=== PATIENT | male | born 1990 | race Two or more races ===

== ENCOUNTER 2016-12-08 13:39 | Inpatient (IN) | payer MEDICARE, BC, MEDICAID ==
[~2016-12-08] VITALS: Ht 193 cm; Wt 65.8 kg
[~2016-12-08 13:39] MED LIST: AMBIEN5 MG ORAL; CEPHALEXIN500 MG ORAL; COLACE100 MG ORAL; DAILY VITAMIN1 EACH PO; DILAUDID2 MG IVP; HEPARIN SO5000 UNIT2 SUBQ; HYDROCODON-ACE1 EAC7 PO; MEGESTROL ACETA20 MG PO; NEURONTIN300 MG PO; NORCO 5-325 TA1 EACH ORAL; RANITIDINE HCL150 MG ORAL; TYLENOL650 MG/20. ORAL; VANCOMYCIN1 GM IV; VESICARE10 MG PO; VITAMIN C500 M1 PO; VITAMIN E100 UNIT ORAL; ZINC50 M1 ORAL; ZINC50 M1 PO; ZOFRAN 4 MG4 MG/2 ML IV; ZOSYN3.375 GM IV; [UNRECOGNIZED DRUG - OTHER] *
[2016-12-08 14:34] LABS: APPEARANCE,URINE SLIGHTLY CLOUDY; KETONES,URINE NEGATIVE (NEGATIVE); LEUKOCYTE ESTERASE ,URINE 3+ (NEGATIVE); NITRITE,URINE NEGATIVE (NEGATIVE); PH,URINE 8 (4.5-8.0); PROTEIN,URINE 2+ (NEGATIVE); UROBILINOGEN,URINE NORMAL MG/DL (0.0-1.0)
[2016-12-08 14:46] LABS: WBC,URINE 60-80 /HPF (0 - 0)
[2016-12-08 14:47] LABS: BACTERIA,URINE FEW /HPF; SQUAMOUS EPITHELIAL CELL,UR OCCASIONAL /LPF (NONE/OCC)
[2016-12-08 14:50] LABS: BASOPHILS % (AUTO) 1.2 % (0.0-2.0); LYMPHOCYTES % (AUTO) 13.3 % (20.0-45.0); MEAN CORPUSCULAR HEMOGLOBIN 29.7 PG (27.0-31.0); MEAN CORPUSCULAR HGB CONC 33.2 G/DL (32.0-36.0); MEAN CORPUSCULAR VOLUME 89 FL (80-99); MEAN PLATELET VOLUME 8.8 FL (6.5-10.1); MONOCYTES % (AUTO) 9.1 % (1.0-10.0); NEUTROPHILS % (AUTO) 75.5 % (45.0-75.0); PLATELET COUNT 270 K/UL (150-450); RED BLOOD COUNT 5.48 M/UL (4.70-6.10); RED CELL DISTRIBUTION WIDTH 12.2 % (11.6-14.8); WHITE BLOOD COUNT 15.6 K/UL (4.8-10.8)
[2016-12-08] MEDS ORDERED: Morphine Sulfate 2mg/ml Inj IVP ONE ×2 (15:00)
[2016-12-08 15:11] VITALS: BP 131/79
[2016-12-08] MEDS ORDERED: EC-NAPROSYN375 MG PO (15:13)
[2016-12-08] MEDS ORDERED: OXYBUTYNIN CHLOR5 M2 PO (15:13)
[2016-12-08 15:14] LABS: ANION GAP 17 (5-15); CALCIUM 10.2 mg/dL (8.6-10.2); CARBON DIOXIDE 24 mEQ/L (20-30); CHLORIDE 94 mEQ/L (98-107); CREATININE 0.7 mg/dL (0.7-1.2); GLOMERULAR FILTRATION RATE > 60 mL/min (>60); HEMOLYSIS 6; POTASSIUM 3.9 mEQ/L (3.4-4.9); SODIUM 135 mEQ/L (135-145)
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
[2016-12-08] MEDS ORDERED: Vancomycin 1 GM in NS 275 ML IVPB ONE (17:30)
[2016-12-08] MEDS ORDERED: Vancomycin 1gm inj IVPB ONE (17:45)
[2016-12-08] MEDS ORDERED: Cyclobenzaprine 10mg Tab ORAL ONE (19:00)
[2016-12-08 23:03] VITALS: BP 134/82
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
[2016-12-09] MEDS ORDERED: LORazepam 1mg tab ORAL PRN (01:00)
[2016-12-09] MEDS ORDERED: Miralax 17gm pkt ORAL PRN (01:00)
[2016-12-09] MEDS ORDERED: Zolpidem 5mg tab ORAL PRN (01:00)
[2016-12-09] MEDS ORDERED: Milk of Magnesia 30ml Ud ORAL PRN (01:00)
[2016-12-09] MEDS ORDERED: Mylanta II UD 30ml ORAL PRN (01:00)
[2016-12-09] MEDS ORDERED: Cyclobenzaprine 10mg Tab ORAL PRN (01:15)
[2016-12-09] MEDS ORDERED: Morphine Sulfate 4mg/ml Inj IVP ONE (01:15)
[2016-12-09] MEDS ORDERED: Cefepime 2gm ONE ×3 (02:00→22:50)
[2016-12-09] MEDS ORDERED: D5W 55 ML IV ONE (02:00)
[2016-12-09] MEDS ORDERED: Tubing IV Cassette IV ONE (02:00)
[2016-12-09] MEDS: Cefepime HCl 2 GM in D5W 110 ML IVPB SCH ×3 (02:03→22:59)
[2016-12-09 02:11] VITALS: BP 123/74
[2016-12-09 06:09] VITALS: BP 119/80
[2016-12-09 08:28] VITALS: BP 137/75
[2016-12-09] MEDS: Morphine Sulfate 2mg/ml Inj IVP PRN ×2 (08:53→17:31)
[2016-12-09] MEDS: Docusate 100mg tablet ORAL SCH ×2 (08:54→21:14)
[2016-12-09] MEDS: Heparin 5000 units/ml inj SUBQ SCH ×2 (08:54→21:19)
--- NOTE | 2016-12-09 13:25 | Diagnostic Imaging Report ---
Indication: PAIN, status post fall Technique: No IV contrast, per trauma protocol. Spiral acquisitions obtained through the right hip. Multiplanar reconstructions were generated. Total dose length product 320 mGycm. CTDIvol(s) 11 mGy. Radiation dose was minimized using automated exposure control Comparison: Pelvic MRI 06/24/2014 , CT abdomen pelvis 05/24/2014 Findings: No acute fractures are demonstrated. No dislocations. Foci of heterotopic ossification are seen adjacent to the proximal femoral shaft, and in the soft tissues of the groin. There is thickened soft tissues surrounding both hip joints, which could indicate joint effusion versus chronic synovial thickening. A single small air bubble is seen probably within the joint. There is some increased attenuation of the subcutaneous fat posteriorly to the greater trochanter. There is some chronic deformity of the subcutaneous soft tissue of the inferomedial buttock region. However, the large abscess and acute decubitus changes described on prior CT and MRI are no longer evident. There is thinning of the bone of the posterior ischium, but this area appears corticated and not eroded, so there are no findings to suggest acute osteomyelitis in this area. Thickening of the soft tissues anterior to the hip joints is similar to that seen on the prior CT scan. There is narrowing of the joint spaces of both hips. The included pelvic viscera are unremarkable. Impression: No acute bony trauma. Single small gas bubble presumably within the left hip joint space. Significance uncertain, but septic arthritis from a gas-forming organism cannot be ruled out Chronic abnormality of the right ischium, with bone loss that is probably related 2 osteomyelitis changes reported in 2014 Chronic soft tissue abnormalities, presumably related to prior decubitus changes Findings discussed by phone with Ni in the emergency room at the time of interpretation The CT scanner at [facility] is accredited by the [employer] and the scans are performed using protocols designed to limit radiation exposure to as low as reasonably achievable to attain images of sufficient resolution adequate for diagnostic evaluation.
[2016-12-09] MEDS: Morphine Sulfate 4mg/ml Inj IVP PRN ×2 (13:31→21:14)
--- NOTE | 2016-12-09 14:13 | Diagnostic Imaging Report ---
Indication: Hematuria, flank pain Technique: Grayscale and duplex images of the kidneys, retroperitoneum, and bladder were obtained. Comparison:Is made to CT scan dated 12/08/2016 Findings: Right kidney measures 1.4 cm in length. Left kidney measures 13.5 cm in length. Both kidneys demonstrate normal echogenicity. No hydronephrosis. Right kidney demonstrates a few hyperechoic foci in the renal sinus suggestive of stones, at these are not evident on recent CT. Some linear parenchymal calcifications seen in the interpolar region on CT might account for this. No focal abnormality on the left.. Normal inferior vena cava. Bladder is normal. Impression: No hydronephrosis. No definite findings to explain stated clinical history of hematuria Right renal hyperechoic foci, could be artifactual as no calculi are seen on recent CT scan. However, a few interpolar region parenchymal calcifications seen on CT could account for this finding..
[2016-12-09 14:17] LABS: BASOPHILS % (AUTO) 0.8 % (0.0-2.0); EOSINOPHILS % (AUTO) 0.4 % (0.0-3.0); LYMPHOCYTES % (AUTO) 12.4 % (20.0-45.0); MEAN CORPUSCULAR HEMOGLOBIN 30.8 PG (27.0-31.0); MEAN CORPUSCULAR HGB CONC 34.2 G/DL (32.0-36.0); MEAN CORPUSCULAR VOLUME 90 FL (80-99); MEAN PLATELET VOLUME 8.5 FL (6.5-10.1); MONOCYTES % (AUTO) 10.3 % (1.0-10.0); NEUTROPHILS % (AUTO) 76.2 % (45.0-75.0); PLATELET COUNT 237 K/UL (150-450); RED CELL DISTRIBUTION WIDTH 12.2 % (11.6-14.8); WHITE BLOOD COUNT 13.9 K/UL (4.8-10.8)
[2016-12-09 14:29] LABS: ANION GAP 17 (5-15); CALCIUM 9.7 mg/dL (8.6-10.2); CARBON DIOXIDE 23 mEQ/L (20-30); CHLORIDE 95 mEQ/L (98-107); CREATININE 0.7 mg/dL (0.7-1.2); GLOMERULAR FILTRATION RATE > 60 mL/min (>60); HEMOLYSIS 5; POTASSIUM 4.2 mEQ/L (3.4-4.9); SODIUM 135 mEQ/L (135-145)
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
[2016-12-09 16:14] VITALS: BP 117/66
[2016-12-09 20:00] VITALS: BP 120/69
--- NOTE | 2016-12-09 22:28 | General Progress Note ---
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 - Paraplegia following spinal cord injury SNOMED: 33895937 (3) Nephrolithiasis ICD Codes: N20.0 - Calculus of kidney SNOMED: 93425504 Status: stable Assessment/Plan Cont cefepime (12/09-) for likely pyelonephritis ID consulted, appreciate rec's F/u STD labs F/u renal U/S Pain control, bowel regimen, supportive care Cont intermittent self cath PRN Monitor CBC and BMP DVT Prophylaxis: SCD, HSQ Code Status: Full Hospital Classification Declaration: Based on this initial evaluation, and depending on the patient's clinical course, I anticipate that this patient will require hospitalization for 1-2 days for pyelonephritis, IV abx per ID and close respiratory/hemodynamic monitoring. Disposition: Once the patient is stable to leave the hospital, I anticipate the patient will likely be discharged to the following environment: home vs home w/ hh I spent 40 minutes on this patient's case, and 11 minutes were dedicated to counseling and/or care coordination. Discussed with patient/family, nursing staff, SW/CM, ID regarding clinical status, treatment course, and disposition planning. Time of note may not reflect time of encounter. Subjective Date patient seen: Dec 09, 2016 Time patient seen: 16:00 ROS Limited/Unobtainable: No Constitutional: Reports: no symptoms HEENT: Reports: no symptoms Cardiovascular: Reports: no symptoms Respiratory: Reports: no symptoms Gastrointestinal/Abdominal: Reports: no symptoms Genitourinary: Reports: flank pain Neurologic/Psychiatric: Reports: no symptoms Endocrine: Reports: no symptoms Hematologic/Lymphatic: Reports: no symptoms Allergies: Coded Allergies: No Known Allergies (Unverified , 06/07/12) All Systems: reviewed and negative except above Subjective Pt feels better. Still w/ flank pain, but improved Objective Last 24 Hour Vital Signs Date Time Temp Pulse Resp B/P Pulse Ox O2 Delivery O2 Flow Rate FiO2 12/09/16 20:00 98.1 83 18 120/69 98 Room Air 12/09/16 18:01 98.2 12/09/16 16:14 98.2 81 19 117/66 98 Room Air 12/09/16 14:01 98.7 12/09/16 10:57 78 18 130/80 99 Room Air 12/09/16 08:28 98.5 92 16 137/75 98 Room Air 12/09/16 06:09 82 14 119/80 100 Room Air 12/09/16 02:11 96 14 123/74 99 Room Air 12/09/16 01:48 98.9 12/08/16 23:03 98.9 87 18 134/82 99 Room Air Intake and Output 12/08/16 12/09/16 19:00 07:00 Intake Total 1183 ml 310 ml Balance 1183 ml 310 ml Intake IV Total 1183 ml 310 ml # Voids 1 1 Laboratory Tests 12/09/16 13:59: White Blood Count 13.9H, Red Blood Count 4.60L, Hemoglobin 14.2, Hematocrit 41.4L, Mean Corpuscular Volume 90, Mean Corpuscular Hemoglobin 30.8, Mean Corpuscular Hemoglobin Concent 34.2, Red Cell Distribution Width 12.2, Platelet Count 237, Mean Platelet Volume 8.5, Neutrophils (%) (Auto) 76.2H, Lymphocytes ( %) (Auto) 12.4L, Monocytes (%) (Auto) 10.3H, Eosinophils (%) (Auto) 0.4, Basophils (%) (Auto) 0.8, Sodium Level 135, Potassium Level 4.2, Chloride Level 95L, Carbon Dioxide Level 23, Anion Gap 17H, Blood Urea Nitrogen 7, Creatinine 0.7, Estimat Glomerular Filtration Rate > 60, Glucose Level 103, Calcium Level 9.7 Height (Feet): 6 Height (Inches): 4.00 Weight (Pounds): 145 Objective General: alert, cooperative, no distress, appears stated age Head: normocephalic, without obvious abnormality, atraumatic Eyes: conjunctivae/corneas clear. PERRL, EOM's intact Throat: lips, mucosa, and tongue normal. MMM Neck: supple, symmetrical, trachea midline, and no JVD Lungs: clear to auscultation bilaterally Heart: regular rate and rhythm, S1, S2 normal, no murmur, click, rub or gallop Abdomen: soft, non-tender, non-distended, bowel sounds normal; no masses or organomegaly Extremities: extremities normal, atraumatic, no cyanosis or edema : +R>L CVAT Pulses: 2+ and symmetric Skin: skin color, texture, turgor normal; no rashes or lesions Neurologic: unable to move BLEs on own Ramesh Hassan M.D. Dec 09, 2016 22:28
[2016-12-10] VITALS: BP 121/69
[2016-12-10] MEDS: Morphine Sulfate 4mg/ml Inj IVP PRN ×3 (01:10→22:02)
[2016-12-10 04:00] VITALS: BP 108/69
[2016-12-10 07:28] LABS: ALANINE AMINOTRANSFERASE 12 U/L (3-41); ALBUMIN/GLOBULIN RATIO 1.3 (1.0-2.7); ANION GAP 17 (5-15); ASPARTATE AMINO TRANSFERASE 8 U/L (5-40); CALCIUM 9.2 mg/dL (8.6-10.2); CARBON DIOXIDE 21 mEQ/L (20-30); CHLORIDE 99 mEQ/L (98-107); CREATININE 0.7 mg/dL (0.7-1.2); GLOMERULAR FILTRATION RATE > 60 mL/min (>60); HEMOLYSIS 6; POTASSIUM 4.2 mEQ/L (3.4-4.9); SODIUM 137 mEQ/L (135-145); TOTAL PROTEIN 6.6 g/dL (6.6-8.7)
[2016-12-10 07:32] LABS: EOSINOPHILS % (AUTO) 0.6 % (0.0-3.0); LYMPHOCYTES % (AUTO) 19.7 % (20.0-45.0); MEAN CORPUSCULAR HEMOGLOBIN 30.7 PG (27.0-31.0); MEAN CORPUSCULAR HGB CONC 33.4 G/DL (32.0-36.0); MEAN CORPUSCULAR VOLUME 92 FL (80-99); MEAN PLATELET VOLUME 8.1 FL (6.5-10.1); MONOCYTES % (AUTO) 10.8 % (1.0-10.0); NEUTROPHILS % (AUTO) 67.9 % (45.0-75.0); PLATELET COUNT 182 K/UL (150-450); RED BLOOD COUNT 4.29 M/UL (4.70-6.10); WHITE BLOOD COUNT 11.6 K/UL (4.8-10.8)
[2016-12-10] MEDS: Docusate 100mg tablet ORAL SCH ×2 (08:07→22:02)
[2016-12-10] MEDS: Heparin 5000 units/ml inj SUBQ SCH ×2 (08:11→22:08)
[2016-12-10 08:12] VITALS: BP 119/69
[2016-12-10] MEDS: Cefepime HCl 2 GM in D5W 110 ML IVPB SCH (09:30)
[2016-12-10 11:47] VITALS: BP 134/70
[2016-12-10] MEDS: Morphine Sulfate 2mg/ml Inj IVP PRN ×2 (13:49→17:58)
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
[2016-12-10 16:00] VITALS: BP 116/62
[2016-12-10] MEDS: cefTRIAXone 1 GM in D5W 55 ML IVPB SCH (17:57)
--- NOTE | 2016-12-10 19:53 | General Progress Note ---
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 - Paraplegia following spinal cord injury SNOMED: 78371671 (3) Nephrolithiasis ICD Codes: N20.0 - Calculus of kidney SNOMED: 30727020 Status: stable Assessment/Plan Cont cefepime (12/09-) for likely pyelonephritis ID consulted, appreciate rec's F/u STD labs F/u renal U/S Pain control, bowel regimen, supportive care Cont intermittent self cath PRN Monitor CBC and BMP Pt to f/u with his urologist outpt re kidney stones DVT Prophylaxis: SCD, HSQ Code Status: Full Hospital Classification Declaration: Based on this initial evaluation, and depending on the patient's clinical course, I anticipate that this patient will require hospitalization for 1-2 days for pyelonephritis, IV abx per ID and close respiratory/hemodynamic monitoring. Disposition: Once the patient is stable to leave the hospital, I anticipate the patient will likely be discharged to the following environment: home vs home w/ hh I spent 40 minutes on this patient's case, and 22 minutes were dedicated to counseling and/or care coordination. Discussed with patient/family, nursing staff, SW/CM, ID regarding clinical status, treatment course, and disposition planning. Time of note may not reflect time of encounter. Subjective Date patient seen: Dec 10, 2016 Time patient seen: 19:52 ROS Limited/Unobtainable: No Constitutional: Reports: no symptoms HEENT: Reports: no symptoms Cardiovascular: Reports: no symptoms Respiratory: Reports: no symptoms Gastrointestinal/Abdominal: Reports: no symptoms Genitourinary: Reports: no symptoms Neurologic/Psychiatric: Reports: no symptoms Endocrine: Reports: no symptoms Hematologic/Lymphatic: Reports: no symptoms Allergies: Coded Allergies: No Known Allergies (Unverified , 06/07/12) All Systems: reviewed and negative except above Subjective Pt feels better. Still w/ flank pain, but improved Objective Last 24 Hour Vital Signs Date Time Temp Pulse Resp B/P Pulse Ox O2 Delivery O2 Flow Rate FiO2 12/10/16 18:28 97.5 12/10/16 16:00 97.5 68 20 116/62 97 Room Air 12/10/16 11:47 97.7 67 18 134/70 96 Room Air 12/10/16 08:37 97.2 12/10/16 08:12 97.2 90 18 119/69 97 Room Air 12/10/16 04:00 97.7 71 20 108/69 98 Room Air 12/10/16 00:00 97.7 85 20 121/69 97 Room Air 12/09/16 20:00 98.1 83 18 120/69 98 Room Air Intake and Output 12/09/16 12/10/16 19:00 07:00 Intake Total 800 ml 700 ml Balance 800 ml 700 ml Intake Oral 600 ml IV Total 800 ml 100 ml # Voids 3 # Bowel Movements 1 Laboratory Tests 12/10/16 06:30: White Blood Count 11.6H, Red Blood Count 4.29L, Hemoglobin 13.2L, Hematocrit 39.4L, Mean Corpuscular Volume 92, Mean Corpuscular Hemoglobin 30.7, Mean Corpuscular Hemoglobin Concent 33.4, Red Cell Distribution Width 12.0, Platelet Count 182, Mean Platelet Volume 8.1, Neutrophils (%) (Auto) 67.9, Lymphocytes (% ) (Auto) 19.7L, Monocytes (%) (Auto) 10.8H, Eosinophils (%) (Auto) 0.6, Basophils (%) (Auto) 1.0, Sodium Level 137, Potassium Level 4.2, Chloride Level 99, Carbon Dioxide Level 21, Anion Gap 17H, Blood Urea Nitrogen 7, Creatinine 0.7, Estimat Glomerular Filtration Rate > 60, Glucose Level 88, Calcium Level 9.2, Magnesium Level 2.0, Total Bilirubin 0.8, Aspartate Amino Transf (AST/SGOT ) 8, Alanine Aminotransferase (ALT/SGPT) 12, Alkaline Phosphatase 72, Total Protein 6.6, Albumin 3.8, Globulin 2.8, Albumin/Globulin Ratio 1.3 Height (Feet): 6 Height (Inches): 4.00 Weight (Pounds): 145 Objective General: alert, cooperative, no distress, appears stated age Head: normocephalic, without obvious abnormality, atraumatic Eyes: conjunctivae/corneas clear. PERRL, EOM's intact Throat: lips, mucosa, and tongue normal. MMM Neck: supple, symmetrical, trachea midline, and no JVD Lungs: clear to auscultation bilaterally Heart: regular rate and rhythm, S1, S2 normal, no murmur, click, rub or gallop Abdomen: soft, non-tender, non-distended, bowel sounds normal; no masses or organomegaly Extremities: extremities normal, atraumatic, no cyanosis or edema : +R>L CVAT Pulses: 2+ and symmetric Skin: skin color, texture, turgor normal; no rashes or lesions Neurologic: unable to move BLEs on own Ramesh Hassan M.D. Dec 10, 2016 19:53
[2016-12-10 20:00] VITALS: BP 109/72
[2016-12-11] VITALS: BP 131/65
[2016-12-11] MEDS: Morphine Sulfate 4mg/ml Inj IVP PRN ×4 (02:01→20:56)
[2016-12-11 04:00] VITALS: BP 114/71
[2016-12-11 08:00] VITALS: BP 126/74
[2016-12-11] MEDS: Heparin 5000 units/ml inj SUBQ SCH ×2 (09:59→21:00)
[2016-12-11] MEDS: Docusate 100mg tablet ORAL SCH ×2 (10:00→21:00)
[2016-12-11 12:00] VITALS: BP 105/52
[2016-12-11 16:00] VITALS: BP 109/57
[2016-12-11] MEDS ORDERED: Tubing IV Secondary IV ONE (16:09)
[2016-12-11] MEDS ORDERED: NS 275ml ONE (16:09)
[2016-12-11] MEDS: cefTRIAXone 1 GM in D5W 55 ML IVPB SCH (17:34)
[2016-12-11 20:00] VITALS: BP 139/75
--- NOTE | 2016-12-11 22:45 | General Progress Note ---
Assessment/Plan Status: stable Assessment/Plan Problem List: (1) Pyelonephritis ICD Codes: N12 - Tubulo-interstitial nephritis, not specified as acute or chronic SNOMED: 38263637 (2) Paraplegia following spinal cord injury ICD Codes: G82.20 - Paraplegia following spinal cord injury SNOMED: 53662826 (3) Nephrolithiasis ICD Codes: N20.0 - Calculus of kidney SNOMED: 98412585 Status: stable Assessment/Plan Cont ceftriaxone IV for pyelonephritis, transition to oral soon. ID consulted, appreciate rec's F/u STD labs F/u renal U/S Pain control, bowel regimen, supportive care Cont intermittent self cath PRN Monitor CBC and BMP Pt to f/u with his urologist outpt re kidney stones DVT Prophylaxis: SCD, HSQ Code Status: Full Hospital Classification Declaration: Based on this initial evaluation, and depending on the patient's clinical course, I anticipate that this patient will require hospitalization for 1-2 days for pyelonephritis, IV abx per ID and close respiratory/hemodynamic monitoring. Disposition: Once the patient is stable to leave the hospital, I anticipate the patient will likely be discharged to the following environment: home vs home w/ hh I spent 40 minutes on this patient's case, and 22 minutes were dedicated to counseling and/or care coordination. Discussed with patient/family, nursing staff, SW/CM, ID regarding clinical status, treatment course, and disposition planning. Time of note may not reflect time of encounter. Subjective Date patient seen: Dec 11, 2016 Allergies: Coded Allergies: No Known Allergies (Unverified , 06/07/12) Subjective no acute events afeb and hds pt eager to be discharged tolerating abx Objective Last 24 Hour Vital Signs Date Time Temp Pulse Resp B/P Pulse Ox O2 Delivery O2 Flow Rate FiO2 12/11/16 21:26 97.7 12/11/16 20:00 98.1 89 20 139/75 98 Room Air 12/11/16 16:00 98.1 74 20 109/57 99 Room Air 12/11/16 12:00 97.7 67 20 105/52 95 Room Air 12/11/16 08:00 97.7 87 18 126/74 95 Room Air 12/11/16 04:00 97.7 62 18 114/71 96 Room Air 12/11/16 00:00 98.1 79 20 131/65 99 Room Air Intake and Output 12/10/16 12/11/16 19:00 07:00 Intake Total 1735 ml 2900 ml Balance 1735 ml 2900 ml Intake Oral 360 ml 2000 ml IV Total 1375 ml 900 ml # Voids 2 8 Height (Feet): 6 Height (Inches): 4.00 Weight (Pounds): 145 Objective General: alert, cooperative, no distress, appears stated age Head: normocephalic, without obvious abnormality, atraumatic Eyes: conjunctivae/corneas clear. PERRL, EOM's intact Throat: lips, mucosa, and tongue normal. MMM Neck: supple, symmetrical, trachea midline, and no JVD Lungs: clear to auscultation bilaterally Heart: regular rate and rhythm, S1, S2 normal, no murmur, click, rub or gallop Abdomen: soft, non-tender, non-distended, bowel sounds normal; no masses or organomegaly Extremities: extremities normal, atraumatic, no cyanosis or edema : +R>L CVAT Pulses: 2+ and symmetric Skin: skin color, texture, turgor normal; no rashes or lesions Neurologic: unable to move BLEs on own Sumeet Hancock MD Dec 11, 2016 22:45
[2016-12-12] VITALS: BP 123/80
[2016-12-12] MEDS: Morphine Sulfate 4mg/ml Inj IVP PRN (02:05)
[2016-12-12 04:00] VITALS: BP 120/82
[2016-12-12 07:26] LABS: BASOPHILS % (AUTO) 1.8 % (0.0-2.0); EOSINOPHILS % (AUTO) 2.6 % (0.0-3.0); LYMPHOCYTES % (AUTO) 46.4 % (20.0-45.0); MEAN CORPUSCULAR HEMOGLOBIN 30.1 PG (27.0-31.0); MEAN CORPUSCULAR HGB CONC 33.5 G/DL (32.0-36.0); MEAN CORPUSCULAR VOLUME 90 FL (80-99); MEAN PLATELET VOLUME 8.1 FL (6.5-10.1); MONOCYTES % (AUTO) 11.1 % (1.0-10.0); NEUTROPHILS % (AUTO) 38.1 % (45.0-75.0); PLATELET COUNT 271 K/UL (150-450); RED BLOOD COUNT 4.75 M/UL (4.70-6.10); RED CELL DISTRIBUTION WIDTH 12.3 % (11.6-14.8); WHITE BLOOD COUNT 5.9 K/UL (4.8-10.8)
[2016-12-12 07:51] LABS: ANION GAP 16 (5-15); CALCIUM 9.3 mg/dL (8.6-10.2); CARBON DIOXIDE 22 mEQ/L (20-30); CHLORIDE 102 mEQ/L (98-107); CREATININE 0.6 mg/dL (0.7-1.2); GLOMERULAR FILTRATION RATE > 60 mL/min (>60); HEMOLYSIS 7; SODIUM 140 mEQ/L (135-145)
[2016-12-12 08:00] VITALS: BP 135/65
[2016-12-12] MEDS: Heparin 5000 units/ml inj SUBQ SCH (09:00)
[2016-12-12] MEDS: Docusate 100mg tablet ORAL SCH (09:00)
--- NOTE | 2016-12-12 11:59 | General Progress Note ---
Assessment/Plan Assessment/Plan covering for dr Stephens ASSESSMENT (1) Pyelonephritis (2) Paraplegia following spinal cord injury (3) Nephrolithiasis (4) Hx of asthma (5) s/p fall ( prior to admission) (6) R hip pain -resolved PLAN OF CARE IV abx urine cx +Ecoli blood cx negative ID follows Renal U/S- No hydronephrosis.Bilateral normal kidney echogenicity. No definite findings to explain stated clinical history of hematuria. Right renal hyperechoic foci, could be artifactual as no calculi are seen on recent CT scan. However, a few interpolar region parenchymal calcifications seen on CT could account for this finding.. Pain control bowel regimen, supportive care DVT/GI prophylaxis self cath prn respiratory status stable, pulse ox stable on RA. O2 HHN prn, no evidence of asthma exacerbation CT R hip no evidence for fracture, dislocation fall precautions, w/chair bound dc today on Cipro ( ID OK) Pt to f/u with his urologist outpt re kidney stones case discussed and evaluated by supervising physician Subjective Allergies: Coded Allergies: No Known Allergies (Unverified , 06/07/12) Subjective leukocytosis resolved, afebrile no pain wants to go home Objective Last 24 Hour Vital Signs Date Time Temp Pulse Resp B/P Pulse Ox O2 Delivery O2 Flow Rate FiO2 12/12/16 08:00 98.6 75 20 135/65 98 Room Air 12/12/16 04:00 97.7 55 18 120/82 100 Room Air 12/12/16 00:00 97.9 78 20 123/80 98 Room Air 12/11/16 21:26 97.7 12/11/16 20:00 98.1 89 20 139/75 98 Room Air 12/11/16 16:00 98.1 74 20 109/57 99 Room Air 12/11/16 12:00 97.7 67 20 105/52 95 Room Air Intake and Output 12/11/16 12/12/16 19:00 07:00 Intake Total 755 ml 760 ml Balance 755 ml 760 ml Intake Oral 400 ml 360 ml IV Total 355 ml 400 ml # Voids 4 Laboratory Tests 12/12/16 04:55: White Blood Count 5.9, Red Blood Count 4.75, Hemoglobin 14.3, Hematocrit 42.6, Mean Corpuscular Volume 90, Mean Corpuscular Hemoglobin 30.1, Mean Corpuscular Hemoglobin Concent 33.5, Red Cell Distribution Width 12.3, Platelet Count 271, Mean Platelet Volume 8.1, Neutrophils (%) (Auto) 38.1L, Lymphocytes (%) (Auto) 46.4H, Monocytes (%) (Auto) 11.1H, Eosinophils (%) (Auto) 2.6, Basophils (%) ( Auto) 1.8, Sodium Level 140, Potassium Level 4.0, Chloride Level 102, Carbon Dioxide Level 22, Anion Gap 16H, Blood Urea Nitrogen 6L, Creatinine 0.6L, Estimat Glomerular Filtration Rate > 60, Glucose Level 92, Calcium Level 9.3 Height (Feet): 6 Height (Inches): 4.00 Weight (Pounds): 145 Objective General: alert, cooperative, no distress, Head: normocephalic, , atraumatic Eyes: PERRL, EOM's intact Throat: MMM Neck: supple, symmetrical, trachea midline, no JVD Lungs: clear to auscultation bilaterally Heart: regular rate and rhythm, S1, S2 normal, no murmur, Abdomen: soft, non-tender, non-distended, bowel sounds normal; Extremities: extremities normal, atraumatic, no edema : +R>L CVAT Pulses: 2+ and symmetric Skin: skin color, texture, turgor normal; no rashes or lesions Neurologic: paraplegia BLE Frank ([facility])Ranjana NP Dec 12, 2016 11:59
[2016-12-12] MEDS ORDERED: CIPRO500 MG/51 PO (12:02)
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
--- NOTE | 2016-12-13 11:02 | Discharge Summary ---
Discharge Summary Hospital Course Date of Admission Dec 08, 2016 at 18:35 Date of Discharge Dec 12, 2016 at 13:00 Admitting Diagnosis Pyelo HPI Dionisio Hull, Iv is a 26 year old male who was admitted on Dec 08, 2016 at 18:35 for [facility] Hospital Course dc summary #[id number] Discharge Medications New Medications: Ciprofloxacin (Cipro) 500 Mg/5 Ml Ella.mc.rec 500 MG PO EVERY 12 HOURS, #14 TAB Continued Medications: Docusate Sodium* (Colace*) 100 Mg Capsule 100 MG ORAL THREE TIMES A DAY, CAP Discharge Condition Upon Discharge: stable Discharge Disposition Patient was discharged to Home (01) Discharge Diagnoses: Frank (Vinay)Ranjana NP Dec 13, 2016 11:02
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
== END 2016-12-12 13:00 | disposition home or self-care (01) | DRG 690 ==
LOC: EMR 18:30 → 4W 18:35 → EDBEDREQ 12-09 10:43 → 4W 12-09 12:09
DX: N12 Tubulo-interstitial nephritis, not specified as acute or chronic (principal); G82.20 Paraplegia, unspecified; N20.0 Calculus of kidney; J45.909 Unspecified asthma, uncomplicated; M25.551 Pain in right hip; R31.9 Hematuria, unspecified; B96.20 Unspecified Escherichia coli [E. coli] as the cause of diseases classified elsewhere; D64.9 Anemia, unspecified; Z91.81 History of falling; Z99.3 Dependence on wheelchair
CPT/HCPCS: 36415; 74176; 76775; 80048; 80053; 81003; 83735; 85025; 87040; 87086; 87181; J2405

== ENCOUNTER 2017-02-07 09:25 | Outpatient (RCR) | payer MEDICARE, BC, MEDICAID ==
[~2017-02-07 09:25] MED LIST changes: +CIPRO500 MG/51 PO; +EC-NAPROSYN375 MG PO; +OXYBUTYNIN CHLOR5 M2 PO
== END 2017-02-23 | disposition home or self-care (01) ==
LOC: WCC 09:25
DX: E44.1 Mild protein-calorie malnutrition (principal); G82.21 Paraplegia, complete
CPT/HCPCS: G0463

== ENCOUNTER 2017-08-02 10:12 | Emergency (ER) | payer MEDICARE, BC, MEDICAID ==
[~2017-08-02] VITALS: Ht 193 cm; Wt 70.3 kg
[2017-08-02 10:25] VITALS: BP 121/71
[2017-08-02] MEDS ORDERED: NEURONTIN300 MG ORAL (10:26)
[2017-08-02] MEDS ORDERED: TRAMADOL HCL50 MG ORAL (10:26)
[2017-08-02] MEDS ORDERED: ZALEPLON10 MG ORAL (10:26)
[2017-08-02 11:22] LABS: EOSINOPHILS % (AUTO) 1.4 % (0.0-3.0); HEMATOCRIT 48.7 % (42.0-52.0); HEMOGLOBIN 16.2 G/DL (14.2-18.0); MEAN CORPUSCULAR VOLUME 91 FL (80-99); MONOCYTES % (AUTO) 4.7 % (1.0-10.0); NEUTROPHILS % (AUTO) 57.9 % (45.0-75.0); PLATELET COUNT 296 K/UL (150-450); RED BLOOD COUNT 5.32 M/UL (4.70-6.10); RED CELL DISTRIBUTION WIDTH 12.1 % (11.6-14.8); WHITE BLOOD COUNT 7.5 K/UL (4.8-10.8)
[2017-08-02] MEDS ORDERED: Ketorolac 30mg Inj IV ONE (11:30)
[2017-08-02 11:37] LABS: ALANINE AMINOTRANSFERASE 25 U/L (12-78); ALBUMIN 4.5 G/DL (3.4-5.0); ALBUMIN/GLOBULIN RATIO 1.2 (1.0-2.7); ALKALINE PHOSPHATASE 85 U/L (46-116); ANION GAP 6 mmol/L (5-15); ASPARTATE AMINO TRANSFERASE 10 U/L (15-37); BILIRUBIN,TOTAL 0.5 MG/DL (0.2-1.0); BLOOD UREA NITROGEN 10 mg/dL (7-18); CALCIUM 9.9 MG/DL (8.5-10.1); CARBON DIOXIDE 32 MMOL/L (21-32); CHLORIDE 105 MMOL/L (98-107); CREATININE 0.7 MG/DL (0.55-1.30); POTASSIUM 3.5 MMOL/L (3.5-5.1); SODIUM 143 MMOL/L (136-145)
[2017-08-02 11:48] LABS: CKMB 4.3 NG/ML (0.0-3.6); CREATINE KINASE 277 U/L (26-308)
--- NOTE | 2017-08-02 12:31 | Diagnostic Imaging Report ---
Indication: Abdominal pain Technique: Continuous helical transaxial imaging of the abdomen and pelvis was obtained from the lung bases to the pubic symphysis. No intravenous contrast was administered. Coronal 2-D reformats were also obtained. Automatic Exposure Control was utilized. Total Dose length Product (DLP): [address] Dose Index Volume (CTDIvol): 0.15, 13.45 mGy Comparison: none Findings: Gallstone noted once again within a contracted gallbladder. There is no hydronephrosis appreciated. Minimal scarring at the right lung base suspected. No nephrolithiasis identified. Suspected focal area of scarring in the posterior part of the right kidney noted. There are multiple nodes within the mesentery that are small, nonspecific in nature. There is no evidence of bowel obstruction. There is no free fluid or free air. The appendix is normal. Previous exam had shown slight thickening of the rectal wall which is much less apparent now. There is some subcutaneous reticulation posterior to the ischia bilaterally. Correlate clinically for decubitus ulcers. This is not adequately covered or imaged on the current study. Some heterotopic bone noted anterior to the left hip. There is a evidence of which are erosion of the right ischium related to previous bouts of osteomyelitis, documented on prior studies. Impression: No acute findings currently demonstrated. Small gallstone unchanged. Gallbladder is contracted Scarring of the right kidney. Mature appearing right ischial erosion related to previous bouts of osteomyelitis. Subcutaneous reticulation posteriorly (incompletely imaged) suggestive of decubitus pressure ulcers. Small nodes in the mesentery nonspecific. The CT scanner at [facility] is accredited by the [employer] and the scans are performed using dose optimization techniques as appropriate to a performed exam including Automatic Exposure control.
[2017-08-02 12:45] LABS: APPEARANCE,URINE TURBID; BILIRUBIN, URINE NEGATIVE (NEGATIVE); GLUCOSE, URINE (UA) NEGATIVE (NEGATIVE); KETONES,URINE NEGATIVE (NEGATIVE); LEUKOCYTE ESTERASE ,URINE 3+ (NEGATIVE); NITRITE,URINE POSITIVE (NEGATIVE); PH,URINE 7 (4.5-8.0); PROTEIN,URINE 3+ (NEGATIVE); UROBILINOGEN,URINE NORMAL MG/DL (0.0-1.0)
[2017-08-02 12:46] LABS: COLOR,URINE YELLOW
[2017-08-02 13:00] VITALS: BP 130/78
[2017-08-02] MEDS ORDERED: cefTRIAXone 1 GM in NS 55 ML IVPB ONE (13:15)
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
[2017-08-02] MEDS ORDERED: NITROFURANTOIN100 M2 ORAL (13:56)
[2017-08-02] MEDS ORDERED: LIDODERM700 M1 TOPIC (13:56)
[2017-08-02] MEDS ORDERED: GABAPENTIN300 MG ORAL (13:56)
[2017-08-02 14:35] VITALS: BP 113/89
--- NOTE | 2017-08-03 15:43 | Cardiology Report ---
APPROVED REPORT EKG Measurement Heart [id number] [place] 146P44 [id number] Sinus rhythm with marked sinus arrhythmia Otherwise normal ECG
--- NOTE | 2017-08-03 15:43 | Cardiology Report ---
APPROVED REPORT EKG Measurement Heart [id number] [place] 146P44 [id number] Sinus rhythm with marked sinus arrhythmia Otherwise normal ECG
--- NOTE | 2017-08-03 15:43 | Cardiology Report ---
APPROVED REPORT EKG Measurement Heart [id number] [place] 146P44 [id number] Sinus rhythm with marked sinus arrhythmia Otherwise normal ECG
== END 2017-08-02 14:35 | disposition home or self-care (01) ==
LOC: EMR 10:53
DX: N39.0 Urinary tract infection, site not specified (principal); J45.909 Unspecified asthma, uncomplicated; G82.20 Paraplegia, unspecified
CPT/HCPCS: 36415; 74176; 80053; 81003; 82550; 82553; 83605; 85025; 87040; 87086; 87181; 93005; 96361; 96365; 96375; 99284; J0696; J1885

== ENCOUNTER 2017-10-17 07:11 | Emergency (ER) | payer MEDICARE, BC, MEDICAID ==
[~2017-10-17] VITALS: Ht 193 cm; Wt 63.5 kg
[~2017-10-17 07:11] MED LIST changes: +GABAPENTIN300 MG ORAL; +LIDODERM700 M1 TOPIC; +NEURONTIN300 MG ORAL; +NITROFURANTOIN100 M2 ORAL; +TRAMADOL HCL50 MG ORAL; +ZALEPLON10 MG ORAL
[2017-10-17] MEDS ORDERED: Ketorolac 30mg Inj IV ONE (07:45)
[2017-10-17 08:05] LABS: BASOPHILS % (AUTO) 1.4 % (0.0-2.0); EOSINOPHILS % (AUTO) 3.2 % (0.0-3.0); HEMATOCRIT 46.4 % (42.0-52.0); HEMOGLOBIN 15.3 G/DL (14.2-18.0); LYMPHOCYTES % (AUTO) 29.6 % (20.0-45.0); MEAN CORPUSCULAR VOLUME 91 FL (80-99); MONOCYTES % (AUTO) 6.4 % (1.0-10.0); NEUTROPHILS % (AUTO) 59.5 % (45.0-75.0); PLATELET COUNT 310 K/UL (150-450); RED BLOOD COUNT 5.08 M/UL (4.70-6.10); WHITE BLOOD COUNT 7.1 K/UL (4.8-10.8)
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
[2017-10-17 08:31] LABS: ANION GAP 7 mmol/L (5-15); BLOOD UREA NITROGEN 9 mg/dL (7-18); CALCIUM 9.4 MG/DL (8.5-10.1); CARBON DIOXIDE 28 MMOL/L (21-32); CHLORIDE 105 MMOL/L (98-107); CREATININE 0.8 MG/DL (0.55-1.30); SODIUM 140 MMOL/L (136-145)
[2017-10-17 08:36] LABS: ALANINE AMINOTRANSFERASE 25 U/L (12-78); ALBUMIN 4.3 G/DL (3.4-5.0); ALBUMIN/GLOBULIN RATIO 1.3 (1.0-2.7); ALKALINE PHOSPHATASE 94 U/L (46-116); ASPARTATE AMINO TRANSFERASE 11 U/L (15-37); BILIRUBIN,TOTAL 0.4 MG/DL (0.2-1.0)
[2017-10-17 09:14] LABS: APPEARANCE,URINE CLEAR; BILIRUBIN, URINE NEGATIVE (NEGATIVE); COLOR,URINE PALE YELLOW; GLUCOSE, URINE (UA) NEGATIVE (NEGATIVE); KETONES,URINE NEGATIVE (NEGATIVE); LEUKOCYTE ESTERASE ,URINE NEGATIVE (NEGATIVE); NITRITE,URINE NEGATIVE (NEGATIVE); PH,URINE 8 (4.5-8.0); PROTEIN,URINE NEGATIVE (NEGATIVE); UROBILINOGEN,URINE NORMAL MG/DL (0.0-1.0)
--- NOTE | 2017-10-17 09:23 | Diagnostic Imaging Report ---
Indication: Pain, weakness Technique: XRAY Chest 1v Comparison: None Findings: Heart size and mediastinal contours are within normal limits given technique. There is no focal consolidation, pneumothorax or pleural effusion. Osseous structures demonstrate no acute abnormality. Impression: No radiographic evidence of acute cardiopulmonary disease.
[2017-10-17] MEDS ORDERED: TRAMADOL HCL50 MG ORAL (09:36)
[2017-10-17 09:43] VITALS: BP 127/71
[2017-10-17 10:04] VITALS: BP 127/73
== END 2017-10-17 10:07 | disposition home or self-care (01) ==
LOC: EMR 08:42
DX: R53.1 Weakness (principal); B34.9 Viral infection, unspecified; J45.909 Unspecified asthma, uncomplicated; G82.20 Paraplegia, unspecified; Z99.3 Dependence on wheelchair
CPT/HCPCS: 36415; 71045; 80053; 81003; 83605; 85025; 86710; 96361; 96374; 99284; J1885

== ENCOUNTER 2018-05-11 04:10 | Emergency (ER) | payer MEDICARE, BC, MEDICAID ==
[~2018-05-11] VITALS: Ht 193 cm; Wt 59.0 kg
[2018-05-11] MEDS ORDERED: FUROSEMIDE40 MG ORAL (04:29)
[2018-05-11] MEDS ORDERED: ROBAXIN-750750 MG PO (04:29)
[2018-05-11] MEDS ORDERED: Methocarbamol 750mg tab ORAL ONE (04:30)
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
[2018-05-11 04:40] VITALS: BP 123/75
== END 2018-05-11 04:42 | disposition home or self-care (01) ==
LOC: EMR 04:25
DX: R60.0 Localized edema (principal); M79.1 Myalgia; G82.20 Paraplegia, unspecified; Z99.3 Dependence on wheelchair
CPT/HCPCS: 99283

== ENCOUNTER 2018-05-22 13:11 | Outpatient (RCR) | payer MEDICARE, BC ==
[~2018-05-22 13:11] MED LIST changes: +FUROSEMIDE40 MG ORAL; +IBUPROFEN600 MG ORAL; +ROBAXIN-750750 MG PO
== END 2018-05-26 | disposition home or self-care (01) ==
LOC: WCC 13:11
DX: L98.491 Non-pressure chronic ulcer of skin of other sites limited to breakdown of skin (principal); G82.21 Paraplegia, complete
CPT/HCPCS: 87070; 87181; 87205; G0463

== ENCOUNTER 2018-06-10 08:19 | Emergency (ER) | payer MEDICARE, BC ==
[~2018-06-10] VITALS: Ht 193 cm; Wt 63.5 kg
[2018-06-10 09:02] VITALS: BP 119/77
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
== END 2018-06-10 09:01 | disposition home or self-care (01) ==
LOC: EMR 08:43
DX: S00.33XA Contusion of nose, initial encounter (principal); G82.22 Paraplegia, incomplete; W18.39XA Other fall on same level, initial encounter; Z99.3 Dependence on wheelchair; Y93.89 Activity, other specified; Y92.9 Unspecified place or not applicable; Y99.9 Unspecified external cause status
CPT/HCPCS: 99282

== ENCOUNTER 2019-01-15 10:51 | Outpatient (RCR) | payer MEDICARE, BC | END 2019-01-23 | disposition home or self-care (01) | LOC: WCC 10:51 | DX: L98.492 Non-pressure chronic ulcer of skin of other sites with fat layer exposed (principal); L89.321 Pressure ulcer of left buttock, stage 1; G82.20 Paraplegia, unspecified; Z79.899 Other long term (current) drug therapy | CPT/HCPCS: 11042 ==

== ENCOUNTER 2019-01-29 10:49 | Outpatient (RCR) | payer MEDICARE, BC | END 2019-02-23 | disposition home or self-care (01) | LOC: WCC 10:49 | DX: L98.492 Non-pressure chronic ulcer of skin of other sites with fat layer exposed (principal); L89.321 Pressure ulcer of left buttock, stage 1; G82.20 Paraplegia, unspecified | CPT/HCPCS: 11042 ==

== ENCOUNTER 2019-09-03 11:10 | Emergency (ER) | payer BC, MEDICARE ==
[~2019-09-03] VITALS: Ht 193 cm; Wt 68.0 kg
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
--- NOTE | 2019-09-03 11:32 | NUR ---
ED Nurse Note: ERMD at bedside
[2019-09-03 11:37] VITALS: BP 109/63
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
[2019-09-03] MEDS ORDERED: B COMPLEX1 EACH ORAL (11:48)
[2019-09-03] MEDS ORDERED: IBUPROFEN600 MG ORAL (11:48)
--- NOTE | 2019-09-03 12:10 | NUR ---
ER DISCHARGE NOTE: Patient is cleared to be discharged per ERMD, pt is aox4, on room air, with stable vital signs. pt was given dc and prescription instructions, pt was able to verbalize understanding, pt id band removed without complications. pt is able to wheel himself via w/c, pt took all belongings.
[2019-09-03 12:14] VITALS: BP 109/63
== END 2019-09-03 12:10 | disposition home or self-care (01) ==
LOC: EMR 11:50
DX: G56.13 Other lesions of median nerve, bilateral upper limbs (principal); G82.20 Paraplegia, unspecified
CPT/HCPCS: 99282

== ENCOUNTER 2019-09-05 22:01 | Emergency (ER) | payer BC, MEDICARE ==
[~2019-09-05] VITALS: Ht 193 cm; Wt 68.0 kg
[~2019-09-05 22:01] MED LIST changes: +B COMPLEX1 EACH ORAL
[2019-09-05 22:09] VITALS: BP 117/81
[2019-09-05 23:21] LABS: BASOPHILS % (AUTO) 1.1 % (0.0-2.0); EOSINOPHILS % (AUTO) 3.1 % (0.0-3.0); HEMATOCRIT 48.1 % (42.0-52.0); LYMPHOCYTES % (AUTO) 32.5 % (20.0-45.0); MEAN CORPUSCULAR VOLUME 88 FL (80-99); MONOCYTES % (AUTO) 9.5 % (1.0-10.0); NEUTROPHILS % (AUTO) 53.9 % (45.0-75.0); PLATELET COUNT 503 K/UL (150-450); RED BLOOD COUNT 5.49 M/UL (4.70-6.10); RED CELL DISTRIBUTION WIDTH 11.6 % (11.6-14.8)
[2019-09-05 23:29] LABS: ANION GAP 8 mmol/L (5-15); BLOOD UREA NITROGEN 10 mg/dL (7-18); CALCIUM 9.1 MG/DL (8.5-10.1); CARBON DIOXIDE 27 MMOL/L (21-32); CHLORIDE 106 MMOL/L (98-107); CREATININE 0.7 MG/DL (0.55-1.30); POTASSIUM 3.7 MMOL/L (3.5-5.1); SODIUM 141 MMOL/L (136-145)
[2019-09-05 23:41] LABS: ALANINE AMINOTRANSFERASE 117 U/L (12-78); ALBUMIN 3.7 G/DL (3.4-5.0); ALBUMIN/GLOBULIN RATIO 1.1 (1.0-2.7); ALKALINE PHOSPHATASE 75 U/L (46-116); ASPARTATE AMINO TRANSFERASE 23 U/L (15-37); BILIRUBIN,TOTAL 0.4 MG/DL (0.2-1.0)
[2019-09-05 23:45] VITALS: BP 112/68
[2019-09-05 23:59] VITALS: BP 112/68
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
== END 2019-09-05 23:59 | disposition home or self-care (01) ==
LOC: EMR 22:45
DX: R20.2 Paresthesia of skin (principal); Z99.3 Dependence on wheelchair; G82.20 Paraplegia, unspecified
CPT/HCPCS: 36415; 80053; 84443; 85025; 99283

== ENCOUNTER 2020-03-31 10:29 | Outpatient (RCR) | payer BC ==
[~2020-03-31] VITALS: Ht 193 cm; Wt 65.8 kg
== END 2020-04-25 | disposition home or self-care (01) ==
LOC: WCC 10:29
DX: L89.323 Pressure ulcer of left buttock, stage 3 (principal); G82.21 Paraplegia, complete; L89.322 Pressure ulcer of left buttock, stage 2; Z88.8 Allergy status to other drugs, medicaments and biological substances
CPT/HCPCS: 11042

== ENCOUNTER 2020-04-28 12:53 | Outpatient (RCR) | payer BC, MEDICARE ==
[~2020-04-28] VITALS: Ht 193 cm; Wt 65.8 kg
[2020-05-19] MEDS ORDERED: OXYBUTYNIN CHLOR5 M1 ORAL (10:05)
[2020-05-19] MEDS ORDERED: ZALEPLON10 MG ORAL (20:36)
== END 2020-05-26 | disposition home or self-care (01) ==
LOC: WCC 12:53
DX: L89.323 Pressure ulcer of left buttock, stage 3 (principal); G82.21 Paraplegia, complete; L89.322 Pressure ulcer of left buttock, stage 2; Z79.899 Other long term (current) drug therapy
CPT/HCPCS: 11042; 87070; 87181; 87205

== ENCOUNTER → 2020-05-13 | Outpatient (CLI) | payer BC ==
[2020-05-13 11:27] LABS: APPEARANCE,URINE CLEAR; COLOR,URINE PALE YELLOW
[2020-05-13 11:28] LABS: BILIRUBIN, URINE NEGATIVE (NEGATIVE); GLUCOSE, URINE (UA) NEGATIVE (NEGATIVE); KETONES,URINE NEGATIVE (NEGATIVE); LEUKOCYTE ESTERASE ,URINE NEGATIVE (NEGATIVE); NITRITE,URINE NEGATIVE (NEGATIVE); PH,URINE 7 (4.5-8.0); PROTEIN,URINE NEGATIVE (NEGATIVE); UROBILINOGEN,URINE NORMAL MG/DL (0.0-1.0)
== END | disposition home or self-care (01) ==
LOC: LAB 10:12
DX: L89.90 Pressure ulcer of unspecified site, unspecified stage (principal)
CPT/HCPCS: 81003; 87086

== ENCOUNTER 2020-06-30 11:40 | Outpatient (RCR) | payer BC, MEDICARE ==
[~2020-06-30 11:40] MED LIST changes: +OXYBUTYNIN CHLOR5 M1 ORAL
== END 2020-07-26 | disposition home or self-care (01) ==
LOC: WCC 11:40
DX: L89.324 Pressure ulcer of left buttock, stage 4 (principal); M96.843 Postprocedural seroma of a musculoskeletal structure following other procedure; G89.28 Other chronic postprocedural pain; G82.20 Paraplegia, unspecified; Z79.899 Other long term (current) drug therapy
CPT/HCPCS: 11043; 87070; 87181; 87205; G0463

== ENCOUNTER 2020-07-28 14:47 | Outpatient (RCR) | payer BC, MEDICARE | END 2020-08-25 | disposition home or self-care (01) | LOC: WCC 14:47 | DX: L89.324 Pressure ulcer of left buttock, stage 4 (principal); M96.843 Postprocedural seroma of a musculoskeletal structure following other procedure; G89.28 Other chronic postprocedural pain | CPT/HCPCS: 11043; 87070; 87205; 97605 ==

== ENCOUNTER → 2020-08-06 | Outpatient (CLI) | payer BC ==
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
== END | disposition home or self-care (01) ==
LOC: MRI 09:46
DX: S31.829A Unspecified open wound of left buttock, initial encounter (principal); R60.0 Localized edema; X58.XXXA Exposure to other specified factors, initial encounter; Y92.9 Unspecified place or not applicable
CPT/HCPCS: 72195

== ENCOUNTER 2020-09-01 11:57 | Outpatient (RCR) | payer BC | END 2020-09-25 | disposition home or self-care (01) | LOC: WCC 11:57 | DX: L89.324 Pressure ulcer of left buttock, stage 4 (principal); M96.843 Postprocedural seroma of a musculoskeletal structure following other procedure; G89.28 Other chronic postprocedural pain; G82.20 Paraplegia, unspecified | CPT/HCPCS: 11043; 11046; 97605 ==

== ENCOUNTER → 2020-09-15 | Outpatient (CLI) | payer BC ==
[2020-09-15 13:30] LABS: BASOPHILS % (AUTO) 0.9 % (0.0-2.0); EOSINOPHILS % (AUTO) 1.1 % (0.0-3.0); HEMATOCRIT 36.2 % (42.0-52.0); HEMOGLOBIN 12.2 G/DL (14.2-18.0); LYMPHOCYTES % (AUTO) 30.7 % (20.0-45.0); MEAN CORPUSCULAR VOLUME 87 FL (80-99); MONOCYTES % (AUTO) 8.5 % (1.0-10.0); NEUTROPHILS % (AUTO) 58.8 % (45.0-75.0); PLATELET COUNT 410 K/UL (150-450); RED BLOOD COUNT 4.14 M/UL (4.70-6.10); RED CELL DISTRIBUTION WIDTH 12.6 % (11.6-14.8); WHITE BLOOD COUNT 12.9 K/UL (4.8-10.8)
== END | disposition home or self-care (01) ==
LOC: LAB 13:03
DX: E46 Unspecified protein-calorie malnutrition (principal)
CPT/HCPCS: 36415; 84134; 84443; 85025

== ENCOUNTER 2020-09-29 10:27 | Outpatient (RCR) | payer BC ==
[2020-10-07] MEDS ORDERED: HYDROCODON-ACE1 EA15 ORAL (18:02)
[2020-10-13] MEDS ORDERED: INVANZ1 G1 IM (16:12)
[2020-10-13] MEDS ORDERED: DAPTOMYCIN350 MG IV (16:13)
== END 2020-10-26 | disposition home or self-care (01) ==
LOC: WCC 10:27
DX: L89.324 Pressure ulcer of left buttock, stage 4 (principal); E03.9 Hypothyroidism, unspecified; M86.08 Acute hematogenous osteomyelitis, other sites; M96.843 Postprocedural seroma of a musculoskeletal structure following other procedure; G89.28 Other chronic postprocedural pain; G82.20 Paraplegia, unspecified; Z79.899 Other long term (current) drug therapy
CPT/HCPCS: 11044; 11047

== ENCOUNTER → 2020-09-29 | Outpatient (CLI) | payer BC ==
[2020-09-29 13:52] LABS: APPEARANCE,URINE CLEAR; BILIRUBIN, URINE NEGATIVE (NEGATIVE); GLUCOSE, URINE (UA) NEGATIVE (NEGATIVE); KETONES,URINE NEGATIVE (NEGATIVE); LEUKOCYTE ESTERASE ,URINE 1+ (NEGATIVE); NITRITE,URINE NEGATIVE (NEGATIVE); PH,URINE 6.5 (4.5-8.0); PROTEIN,URINE NEGATIVE (NEGATIVE); UROBILINOGEN,URINE 1 MG/DL (0.0-1.0)
[2020-09-29 13:53] LABS: COLOR,URINE YELLOW
[2020-09-29 13:55] LABS: EOSINOPHILS % (AUTO) 0.9 % (0.0-3.0); HEMATOCRIT 35.1 % (42.0-52.0); HEMOGLOBIN 11.4 G/DL (14.2-18.0); LYMPHOCYTES % (AUTO) 21.5 % (20.0-45.0); MEAN CORPUSCULAR VOLUME 88 FL (80-99); MONOCYTES % (AUTO) 6.1 % (1.0-10.0); NEUTROPHILS % (AUTO) 70.5 % (45.0-75.0); PLATELET COUNT 475 K/UL (150-450); RED BLOOD COUNT 3.98 M/UL (4.70-6.10); WHITE BLOOD COUNT 14.2 K/UL (4.8-10.8)
== END | disposition home or self-care (01) ==
LOC: LAB 13:10
DX: B99.9 Unspecified infectious disease (principal)
CPT/HCPCS: 36415; 81001; 85025; 85651; 86140; 87070; 87086; 87205

== ENCOUNTER → 2020-10-03 | Outpatient (CLI) | payer BC, MEDICAID ==
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
== END | disposition home or self-care (01) ==
LOC: MRI 10:10
DX: S31.829A Unspecified open wound of left buttock, initial encounter (principal); X58.XXXA Exposure to other specified factors, initial encounter; Y92.9 Unspecified place or not applicable; R59.0 Localized enlarged lymph nodes
CPT/HCPCS: 72195

== ENCOUNTER 2020-10-06 14:53 | Inpatient (IN) | payer BC, MEDICAID ==
[~2020-10-06] VITALS: Ht 193 cm; Wt 68.0 kg
--- NOTE | 2020-10-06 14:56 | NUR ---
ED Nurse Note: Pt is not in the waiting room.
--- NOTE | 2020-10-06 15:10 | NUR ---
ED Nurse Note: pt presents to ED c/o pain and infection from sacral pressure ulcer. pt is wheelchair bound and receives treatment [facility] [place] from Dr. Curran. Dr. Curran advised him to come in to be admitted for possible osteomyelitis. pt reports chills and that he has nerve pain on L side of body that comes and goes. pt reports it feels like an "electricity" jolt. pt state that he has a wound care nurse who visits and changes his dressing. it is currently covered with wet to dry gauze dressing
[2020-10-06] MEDS ORDERED: Piperacillin/Tazobactam 3.375 GM in NS 110 ML IVPB ONE (15:30)
[2020-10-06] MEDS ORDERED: Morphine Sulfate 2mg/ml Inj(IV/IM USE ONLY) IVP ONE ×2 (15:45→20:00)
[2020-10-06] MEDS ORDERED: Omnipaque-300 100ml vial INJ PRN (15:45)
[2020-10-06 16:00] VITALS: BP 125/78
--- NOTE | 2020-10-06 16:18 | Diagnostic Imaging Report ---
Indication: Shortness of breath Technique: One view of the chest Comparison: 10/17/2017 Findings: Lungs and pleural spaces are clear. Heart size is normal. No significant change Impression: No acute process
[2020-10-06] MEDS ORDERED: Vancomycin 1.5gm/300ml Premix 300 ML IVPB ONE (16:45)
[2020-10-06 16:51] LABS: BASOPHILS % (AUTO) 1.2 % (0.0-2.0); EOSINOPHILS % (AUTO) 0.2 % (0.0-3.0); HEMATOCRIT 32.9 % (42.0-52.0); LYMPHOCYTES % (AUTO) 16.3 % (20.0-45.0); MEAN CORPUSCULAR VOLUME 86 FL (80-99); MONOCYTES % (AUTO) 6.7 % (1.0-10.0); NEUTROPHILS % (AUTO) 75.6 % (45.0-75.0); PLATELET COUNT 499 K/UL (150-450); RED BLOOD COUNT 3.82 M/UL (4.70-6.10); RED CELL DISTRIBUTION WIDTH 12.6 % (11.6-14.8); WHITE BLOOD COUNT 16.8 K/UL (4.8-10.8)
[2020-10-06 17:04] LABS: ANION GAP 12 mmol/L (5-15); BLOOD UREA NITROGEN 11 mg/dL (7-18); CALCIUM 8.8 MG/DL (8.5-10.1); CARBON DIOXIDE 22 MMOL/L (21-32); CHLORIDE 102 MMOL/L (98-107); CREATININE 0.8 MG/DL (0.55-1.30); POTASSIUM 4.1 MMOL/L (3.5-5.1); SODIUM 136 MMOL/L (136-145)
[2020-10-06 17:17] LABS: ALANINE AMINOTRANSFERASE 38 U/L (12-78); ALBUMIN 2.4 G/DL (3.4-5.0); ALBUMIN/GLOBULIN RATIO 0.4 (1.0-2.7); ALKALINE PHOSPHATASE 96 U/L (46-116); ASPARTATE AMINO TRANSFERASE 12 U/L (15-37); BILIRUBIN,TOTAL 0.6 MG/DL (0.2-1.0); CKMB 1.1 NG/ML (0.0-3.6); CREATINE KINASE 138 U/L (26-308)
[2020-10-06 17:24] LABS: INR 1.1 (0.9-1.1)
--- NOTE | 2020-10-06 17:54 | Diagnostic Imaging Report ---
EXAM: CT Abdomen and Pelvis With Intravenous Contrast CLINICAL HISTORY: PAIN TECHNIQUE: Axial computed tomography images of the abdomen and pelvis with intravenous contrast. CTDI is 4.6 mGy and DLP is 263.6 mGy-cm. One or more of the following dose reduction techniques were used: automated exposure control, adjustment of the mA and/or kV according to patient size, use of iterative reconstruction technique. COMPARISON: CT abdomen/pelvis on 08/02/2017 FINDINGS: Lung bases: Unremarkable. No mass. No consolidation. ABDOMEN: Liver: Unremarkable. No mass. Gallbladder and bile ducts: Cholelithiasis in a contracted gallbladder. No ductal dilation. Pancreas: Unremarkable. No mass. No ductal dilation. Spleen: Unremarkable. No splenomegaly. Adrenals: Unremarkable. No mass. Kidneys and ureters: No hydronephrosis or obstructing stone. Stomach and bowel: Wall thickening of the rectum may be secondary to under distention versus proctitis. PELVIS: Appendix: Normal appendix. Bladder: Mild prominence of the bladder wall is nonspecific. Please correlate with urinalysis if concerned for cystitis. Reproductive: Unremarkable as visualized. ABDOMEN and PELVIS: Intraperitoneal space: Unremarkable. No free air. No significant fluid collection. Bones/joints: Small amount of lucency in the left ischial bone is concerning for osteomyelitis. No acute fracture. No dislocation. Soft tissues: Left inferior gluteal decubitus ulcer with prominent fat stranding. The ulceration extends to the level of the left ischium. Vasculature: Unremarkable. No abdominal aortic aneurysm. Lymph nodes: Nonspecific mildly prominent mesenteric and retroperitoneal lymph nodes which may be reactive. Nonspecific prominent left inguinal and iliac chain lymph nodes. These are increased compared to prior exam. IMPRESSION: 1. Left inferior gluteal decubitus ulcer with prominent fat stranding. The ulceration extends to the level of the left ischium. 2. Small amount of lucency in the left ischial bone is concerning for osteomyelitis. 3. Mild prominence of the bladder wall is nonspecific. Please correlate with urinalysis if concerned for cystitis. 4. Nonspecific mildly prominent mesenteric and retroperitoneal lymph nodes which may be reactive. Nonspecific prominent left inguinal and iliac chain lymph nodes. These are increased compared to prior exam.
[2020-10-06 18:00] VITALS: BP 129/82
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
[2020-10-06 18:36] LABS: APPEARANCE,URINE CLEAR; BILIRUBIN, URINE NEGATIVE (NEGATIVE); COLOR,URINE PALE YELLOW; GLUCOSE, URINE (UA) NEGATIVE (NEGATIVE); KETONES,URINE NEGATIVE (NEGATIVE); LEUKOCYTE ESTERASE ,URINE NEGATIVE (NEGATIVE); NITRITE,URINE NEGATIVE (NEGATIVE); PH,URINE 7 (4.5-8.0); PROTEIN,URINE 1+ (NEGATIVE); UROBILINOGEN,URINE NORMAL MG/DL (0.0-1.0)
--- NOTE | 2020-10-06 18:46 | NUR ---
ED Nurse Note: Dr. Stack @ bedside
--- NOTE | 2020-10-06 19:00 | Infectious Diseases Prog Note ---
Assessment/Plan Assessment/Plan Full consult dictated: A) 1) left buttock/gluteal wound infection/cellulitis, left ischial/hip osteomyelitis 2) sepsis, leukocytosis, chills 3) pp 4) allergies - nkda P) 1) vancomycin and zosyn 2) wound culture 3) monitor labs, sed rate, crp 4) surgery f/u 5) thank you Subjective Allergies: Coded Allergies: No Known Allergies (Unverified , 06/07/12) Objective Last 24 Hour Vital Signs Date Time Temp Pulse Resp B/P (MAP) Pulse Ox O2 Delivery O2 Flow Rate FiO2 10/06/20 16:00 98.8 19 125/78 98 Room Air 10/06/20 16:00 132 19 Room Air 10/06/20 15:19 98.8 132 19 125/78 (94) 98 Room Air Height (Feet): 6 Height (Inches): 4.00 Weight (Pounds): 150 Laboratory Tests Test 10/06/20 16:15 10/06/20 18:00 10/06/20 18:08 White Blood Count 16.8 K/UL (4.8-10.8) H Red Blood Count 3.82 M/UL (4.70-6.10) L Hemoglobin 11.0 G/DL (14.2-18.0) L Hematocrit 32.9 % (42.0-52.0) L Mean Corpuscular Volume 86 FL (80-99) Mean Corpuscular Hemoglobin 28.7 PG (27.0-31.0) Mean Corpuscular Hemoglobin Concent 33.3 G/DL (32.0-36.0) Red Cell Distribution Width 12.6 % (11.6-14.8) Platelet Count 499 K/UL (150-450) H Mean Platelet Volume 6.0 FL (6.5-10.1) L Neutrophils (%) (Auto) 75.6 % (45.0-75.0) H Lymphocytes (%) (Auto) 16.3 % (20.0-45.0) L Monocytes (%) (Auto) 6.7 % (1.0-10.0) Eosinophils (%) (Auto) 0.2 % (0.0-3.0) Basophils (%) (Auto) 1.2 % (0.0-2.0) Prothrombin Time 12.4 SEC (9.30-11.50) H Prothromb Time International Ratio 1.1 (0.9-1.1) Activated Partial Thromboplast Time 30 SEC (23-33) Sodium Level 136 MMOL/L (136-145) Potassium Level 4.1 MMOL/L (3.5-5.1) Chloride Level 102 MMOL/L (98-107) Carbon Dioxide Level 22 MMOL/L (21-32) Anion Gap 12 mmol/L (5-15) Blood Urea Nitrogen 11 mg/dL (7-18) Creatinine 0.8 MG/DL (0.55-1.30) Estimat Glomerular Filtration Rate > 60 mL/min (>60) Glucose Level 101 MG/DL (74-106) Lactic Acid Level 2.60 mmol/L (0.4-2.0) H Pending Calcium Level 8.8 MG/DL (8.5-10.1) Total Bilirubin 0.6 MG/DL (0.2-1.0) Aspartate Amino Transf (AST/SGOT) 12 U/L (15-37) L Alanine Aminotransferase (ALT/SGPT) 38 U/L (12-78) Alkaline Phosphatase 96 U/L (46-116) Total Creatine Kinase 138 U/L (26-308) Creatine Kinase MB 1.1 NG/ML (0.0-3.6) Creatine Kinase MB Relative Index 0.7 Troponin I 0.000 ng/mL (0.000-0.056) Total Protein 8.1 G/DL (6.4-8.2) Albumin 2.4 G/DL (3.4-5.0) L Globulin 5.7 g/dL Albumin/Globulin Ratio 0.4 (1.0-2.7) L Urine Color Pending Urine Appearance Pending Urine pH Pending Urine Specific [place] Pending Urine Protein Pending Urine Glucose (UA) Pending Urine Ketones Pending Urine Blood Pending Urine Nitrite Pending Urine Bilirubin Pending Urine Urobilinogen Pending Urine Leukocyte Esterase Pending Current Medications Medications (Trade) Dose Ordered Sig/Evelyn Route PRN Reason Start Time Stop Time Status Last Admin Dose Admin Iohexol (OMNIPAQUE-300 100ml) 100 ml NOW PRN INJ Radiology Procedure 10/06/20 15:45 10/08/20 15:44 Cinthia Arroyo MD Oct 06, 2020 19:00
--- NOTE | 2020-10-06 19:12 | NUR ---
HAND-OFF: Report given to NARDA Hong. Pt in stable condition; plan of care endorsed.
--- NOTE | 2020-10-06 19:15 | NUR ---
ED Nurse Note: Recieved pt awake, A&Ox4 , and verbal. pt is has no sob,fever, pain and cough. All safty measures applied. we will keep monitoring the pt
[2020-10-06 20:36] VITALS: BP 128/78
[2020-10-06] MEDS ORDERED: Piperacillin/Tazobactam 3.375 GM in D5W 110 ML IVPB SCH (22:00)
--- NOTE | 2020-10-06 22:45 | NUR ---
ED Nurse Note: pt is on the bed in stable condition. vitals are stable and no sob. We will keep monitoring the pt
[2020-10-06 23:45] VITALS: BP 131/81
[2020-10-07 00:55] VITALS: BP 127/78
[2020-10-07] MEDS ORDERED: Vancomycin 1.5gm x1 (Pts>70kg) IVPB SCH ×3 (01:00→06:00)
[2020-10-07] MEDS ORDERED: HYDROmorphone 1mg/ml Carpuject IVP ONE (01:45)
--- NOTE | 2020-10-07 01:45 | NUR ---
ED Nurse Note: Pt in bed awake and alert, c/o having increase in pain, ionformed, tp medicated for pain with dilaudid and had immediate effects, pt placed on monitoring for V/S, IV site assessed and re-taped, pt belongings list completed, pt being admitted to floor bed. primary nurse aware.
--- NOTE | 2020-10-07 02:05 | NUR ---
TRANSFER TO FLOOR: Patient transferred to [facility] as ordered, per Jey. Report given to Jonnathan LABOY. All Belongings sent with the pt. RN took the pt on the floor in stable condition.
[2020-10-07] MEDS ORDERED: traMADol 50mg tab ORAL PRN (03:30)
[2020-10-07] MEDS ORDERED: HYDROcodone/Acetamin 5/325 tab ORAL PRN (03:30)
--- NOTE | 2020-10-07 03:30 | NUR ---
NURSE NOTES: Pt arrived via gurney from ED. Got report from Gely LABOY. Pt in stable condition. Denies any pain. Denies any n/v or SOB. Pt is fully oriented. Pt is paraplegic from the waist down. Initial assessment done. patient monitor placed on pt running Sinus Rhythm. VSS. Pt is here for infected L buttocks stage 4 picture taken. Pt is on room air sating 98%. Pt has L hand 20g slocked patent and intact. Orders given by Dr. Khanna orders placed. Bed in low and locked position, call light within reach, bedside table within reach. Continue to monitor.
[2020-10-07 04:00] VITALS: BP 126/68
--- NOTE | 2020-10-07 04:44 | Consultation ---
DATE OF CONSULTATION: 10/06/2020 INFECTIOUS DISEASE CONSULTATION CONSULTING PHYSICIAN: Cinthia Arroyo MD. ATTENDING PHYSICIAN: Harmony Khanna MD. REFERRING PHYSICIAN: Harmony Khanna MD. REASON FOR CONSULTATION: Left buttock and gluteal infected wound cellulitis and also sepsis, elevated white count and also left ischial or hip osteomyelitis. CHIEF COMPLAINT: The patient's chief complaint coming in the hospital is sepsis, elevated white count, chills, infected wound of left buttock and gluteal area. HISTORY OF PRESENT ILLNESS: This is a very pleasant 29-year-old male who has history of paraplegia and wound infection of left buttock and gluteal area. The patient is currently in the ER and I could not really assess him, and wound pictures are pending. However, per the records and I reviewed the records in the wound clinic, the patient has progressive left buttock and gluteal wound and a CT scan of the abdomen and pelvis showed osteo of the left ischial or hip area. It also showed left buttock or gluteal decubitus ulcer that extending to the left ischium or hip. There is findings concerning for osteomyelitis. Infectious Disease consultation is requested because of elevated white count, possible sepsis, in addition to soft tissue infected osteo. The patient was placed empirically on vancomycin and Zosyn, and wound culture will be ordered. Surgery is going to follow the patient. The patient likely need six weeks of IV antibiotics. We will continue vancomycin and Zosyn for now. REVIEW OF SYSTEMS: GENERAL: Main issue is the left gluteal buttock wound and he has pain in that area. He has paraplegia. He currently does not have fevers. He does have chills. HEAD AND NECK: He says, no head pain or neck pain. CARDIAC: No chest pain. He does have tachycardia. PULMONARY: No shortness of breath. GASTROINTESTINAL: No nausea, vomiting, or diarrhea. GENITOURINARY: The patient did not say a Ye. SKIN: No rash. NEUROLOGICAL: No seizures. PAST MEDICAL HISTORY: The patient has a past medical history of paraplegia, left gluteal buttock wound, osteo, and asthma. He has history of paralysis, spinal cord injury and back surgery in 2005. The patient has no history of diabetes or hypertension. ALLERGIES: He has no known drug allergies. SOCIAL HISTORY: Negative for smoking, alcohol, or drug abuse. FAMILY HISTORY: Noncontributory. MEDICATIONS: Upon reviewing the MAR, he has got the following medications. He is on Zosyn, vancomycin, morphine, and IV fluids. He is getting Zosyn, vancomycin, morphine, and IV fluids. Outside medications noted and reconciliated. PHYSICAL EXAMINATION: VITAL SIGNS: Temperature is 98.6, pulse rate 121, respiratory rate 20, blood pressure 129/82. Saturation 99% on room air. GENERAL: Alert and responsive, in no distress. HEAD AND NECK: Oral exam, no thrush. Eye exam, no icterus. Normocephalic. Neck is supple. No JVD. HEART: Regular. No murmur. Tachycardic. LUNGS: Clear bilaterally. No rhonchi or rales. ABDOMEN: Soft. Positive bowel sounds. SKIN: No rash. Left gluteal wound and buttock wound is covered. MUSCULOSKELETAL: No effusion. Legs are without cellulitis. PERIPHERAL VASCULAR: No cyanosis or gangrene. GENITOURINARY: No Ye. LINE SITES: Without phlebitis NEUROLOGIC: He has paraplegia. Alert and oriented. LABORATORY DATA: White count 16.8, hemoglobin 11.0. Creatinine 0.8. LFTs noted. Lactic acid 2.6. UA pending, leukocyte esterase so far is negative in UA. Blood cultures have been ordered. Wound cultures have been ordered. IMAGING: The patient's CT scan of abdomen and pelvis showed gluteal buttock decubitus ulcer with stranding and also left ischial bone lucency concerning for osteo. Again, CT scan of abdomen and pelvis showed decubitus ulcer in the gluteal and buttocks area with fat stranding. Ulceration extends to the left ischium and again lucency concerning for left ischial osteo. Chest x-ray, no acute process. ASSESSMENT AND PLAN: 1. The patient has left buttock/gluteal infected wound that is progressing. The patient has left hip and ischial osteomyelitis. At this time, continue vancomycin and Zosyn empirically for MRSA gram-negative coverage. Continue vancomycin and Zosyn for the left gluteal, buttock infected wound and left hip ischial osteo. Check wound culture. Surgery followup for debridement if needed. The patient also had an MRI in the outpatient setting, which did show osteo also. Continue vancomycin and Zosyn. Check wound culture and follow up on blood culture for possible sepsis and elevated white count. Continue antibiotics for likely a six-week treatment for the left ischial and hip osteo and infected left gluteal buttock wound. Again, continue vancomycin and Zosyn for sepsis and elevated lactic acid. Check cultures and laboratories. Chest x-ray is negative. UA is benign. Check blood cultures. Also check sedimentation rate and CRP. 2. The patient has history of asthma. 3. Paraplegia. 4. Spinal cord injury. 5. History of back surgery. 6. Paraplegia and weakness. 7. COVID testing four weeks ago was negative. Currently, he has no fevers. Chest x-ray is negative. 8. Anemia. 9. Continue treatment per primary consultants. 10. Orders were noted and entered. 11. No known drug allergies. 12. Social history is negative. 13. Family is noncontributory. 14. MAR is noted. 15. Case was discussed with RN. Cinthia Arroyo M.D. DR: CHERI JOB#: [id number] CC:
--- NOTE | 2020-10-07 07:00 | NUR ---
NURSE HAND-OFF REPORT: Important Events on Shift:[] Patient Status: [STABLE] Diet: [] Pending Orders: [] Pending Results/Labs:[] Pending MD notification:[] Latest Vital Signs: Temperature 99.0 , Pulse 92 , B/P 126 /68 , Respiratory Rate 18 , O2 SAT 98 , Room Air, O2 Flow Rate . Vital Sign Comment: [] EKG Rhythm: Sinus Rhythm Rhythm change?: N MD Notified?: - MD Response: Latest Vega Fall Score: 40 Fall Risk: Medium Risk Safety Measures: Call light , Bed Alarm , Side Rails Side Rails x2, Bed position . Fall Precautions: Report given to [TABITHA RN].
--- NOTE | 2020-10-07 07:01 | NUR ---
NURSE NOTES: Received patient in bed asleep. No SOB or acute distress. IV line intact and patent. HOB elevated. Bed locked in low position. Call light within reach. On pain mgnt. Will continue plan of care.
--- NOTE | 2020-10-07 07:03 | NUR ---
CASE MANAGEMENT:REVIEW 29YR OLD MALE PRESENTED TO ER FROM HOME CC: CHILLS AND PAIN. REFERRED BY DR BLAKELY FOR WOUND EVALUATION STAGE 4 PRESSURE WOUND ON LT BUTTOCK SI: SEPSIS. WOUND INFECTION.OSTEOMYELITIS 98.7 132 19 125/78 98% ON RA WBC+16.8 LACTIC ACID(+) 2.60 IS: 1L NS BOLUS X1 IV ZOSYN X1 IV VANCOMYCIN X1 IV MORPHINE X2 IV ZOFRAN X1 BLOOD AND WOUND CULTURE CT ABD/PELVIS : TO TELEMETRY DCP: FROM HOME
[2020-10-07 07:08] LABS: BASOPHILS % (AUTO) 0.9 % (0.0-2.0); HEMATOCRIT 30.5 % (42.0-52.0); LYMPHOCYTES % (AUTO) 23.6 % (20.0-45.0); MEAN CORPUSCULAR VOLUME 86 FL (80-99); MONOCYTES % (AUTO) 6.5 % (1.0-10.0); PLATELET COUNT 505 K/UL (150-450); RED BLOOD COUNT 3.56 M/UL (4.70-6.10); RED CELL DISTRIBUTION WIDTH 13.5 % (11.6-14.8); WHITE BLOOD COUNT 13.9 K/UL (4.8-10.8)
[2020-10-07 07:38] LABS: ALANINE AMINOTRANSFERASE 32 U/L (12-78); ALBUMIN 2.2 G/DL (3.4-5.0); ALBUMIN/GLOBULIN RATIO 0.4 (1.0-2.7); ALKALINE PHOSPHATASE 85 U/L (46-116); ANION GAP 8 mmol/L (5-15); ASPARTATE AMINO TRANSFERASE 12 U/L (15-37); BILIRUBIN,TOTAL 0.9 MG/DL (0.2-1.0); BLOOD UREA NITROGEN 8 mg/dL (7-18); CALCIUM 8.6 MG/DL (8.5-10.1); CARBON DIOXIDE 25 MMOL/L (21-32); CHLORIDE 104 MMOL/L (98-107); CREATININE 0.8 MG/DL (0.55-1.30); POTASSIUM 3.5 MMOL/L (3.5-5.1); SODIUM 137 MMOL/L (136-145)
[2020-10-07 07:57] LABS: PHOSPHORUS 4.5 MG/DL (2.5-4.9)
[2020-10-07 08:00] VITALS: BP 119/76
[2020-10-07] MEDS ORDERED: Piperacillin/Tazobactam 3.375 GM in D5W 110 ML IVPB SCH (09:00)
--- NOTE | 2020-10-07 09:20 | NUR ---
RD ASSESSMENT & RECOMMENDATIONS SEE CARE ACTIVITY FOR COMPLETE ASSESSMENT DAILY ESTIMATED NEEDS: Needs based on Paraplegia, wound 68kg 28-33 kcals/kg 8891-6369 total kcals 1.5-2 g protein/kg 102-136 g total protein 25-30 mL/kg 6890-7064 total fluid mLs NUTRITION DIAGNOSIS: Increased kcal and pro needs r/t wound healing as evidenced by pt is wheelchair bound, paraplegic, admitted w/ left hip and ischial osteomyelitis. CURRENT DIET: Regular PO DIET RECOMMENDATIONS: Regular + Double protein portions ADDITIONAL RECOMMENDATIONS: 1) Please obtain an updated calibrated bed scale wt for accurate CBW 2) Wound healing: MVI w/ mineral x 1 Vit C 500mg BID, ZnSO4 220mg QD x 10 days Simeon BID added to tray 3) Ensure Enlive TID w/ meals added to tray 4) Updated food preferences 5) Pt states was on [employer]- consider resuming med to maintain appetite
[2020-10-07] MEDS: Heparin 5000 units/ml inj SUBQ SCH ×2 (09:22→21:09)
[2020-10-07] MEDS: VANCOMYCIN IVPB SCH ×2 (09:26→23:26)
[2020-10-07 12:00] VITALS: BP 109/78
[2020-10-07] MEDS ORDERED: Piperacillin/Tazobactam 3.375 GM in NS 110 ML IVPB SCH (12:00)
[2020-10-07] MEDS: Piperacillin/Tazobactam 3.375 GM in D5W 110 ML IVPB SCH ×2 (12:41→17:39)
--- NOTE | 2020-10-07 12:48 | History & Physical ---
History of Present Illness General Reason for Hospitalization: General Complaint Present Illness HPI 29-year-old male with history of paraplegia and pressure ulcer buttocks here complaining of worsening pressure ulcer and drainage and tachycardia. Patient rates the pain 10 out of 10 in the buttocks area. Reports that patient was sent here by primary doctor. Appears to be afebrile. Has not taken medication for symptom relief. Had a recent surgery done the affected area however reports that it opened up again. Other than elevated heart rate patient appears to be stable. Patient is currently on gabapentin for neuropathy. Patient reports that the pain is coming from inside and he has not had any sensation in the buttocks in many years. Allergies: Coded Allergies: No Known Allergies (Unverified , 06/07/12) COVID-19 Screening Contact w/high risk pt: No Experienced COVID-19 symptoms?: No Coronavirus symptoms experienc: Chills Medication History Scheduled Oxybutynin Chloride (Oxybutynin Chloride), 5 MG ORAL HS, (Reported) Zaleplon (Zaleplon), 10 MG ORAL QHS, (Reported) Scheduled PRN Gabapentin (Neurontin), 300 MG ORAL BID PRN for NEUROPATHIC PAIN, (Reported) Hydrocodone/Acetaminophen 5-325* (Hydrocodone/Acetaminophen 5-325*), 1 TAB ORAL Q4H PRN for For Pain, (Reported) Tramadol Hcl* (Ultram*), 50 MG ORAL BID PRN for For Pain, (Reported) Patient History Healthcare decision maker Resuscitation status Advanced Directive on File Family History Family History: Patient reports no known family medical history. Review of Systems Review of Symptoms General ROS: no weight loss or fever Psychological ROS: no depression or mood changes, no memory loss Ophthalmic ROS: no visual changes or eye irritation ENT ROS: no nasal congestion, hearing loss, dizziness Allergy and Immunology ROS: no allergic symptoms or urticaria Hematological and Lymphatic ROS: no swollen glands, unusual bleeding or bruising Endocrine ROS: no polyuria, polydipsia, weight changes, temperature intolerance Respiratory ROS: no cough, shortness of breath, or wheezing Cardiovascular ROS: no chest pain or dyspnea on exertion Gastrointestinal ROS: denies abdominal pain, bright red blood in stool. Musculoskeletal ROS: no myalgias or arthralgias Neurological ROS: no TIA or stroke symptoms Dermatological ROS: no new or changing skin lesions, rashes or pruritis Physical Exam Physical Exam General appearance: alert, cooperative, no distress, appears stated age Head: Normocephalic, without obvious abnormality, atraumatic Eyes: conjunctivae/corneas clear. PERRL, EOM's intact. Fundi benign Throat: Lips, mucosa, and tongue normal. Teeth and gums normal Neck: supple, symmetrical, trachea midline, no adenopathy, thyroid: not enlarged, symmetric, no tenderness/mass/nodules, no carotid bruit and no JVD Lungs: clear to auscultation bilaterally Heart: regular rate and rhythm, S1, S2 normal, no murmur, click, rub or gallop Abdomen: soft, non-tender. Bowel sounds normal. No masses, no organomegaly Extremities: extremities normal, atraumatic, no cyanosis or edema Pulses: 2+ and symmetric Skin: + pressure ulcer with drainage Neurologic: Grossly normal Last 24 Hour Vital Signs Date Time Temp Pulse Resp B/P (MAP) Pulse Ox O2 Delivery O2 Flow Rate FiO2 10/07/20 08:00 98.0 101 22 119/76 (90) 100 10/07/20 04:35 Room Air 10/07/20 04:00 99.0 92 18 126/68 (87) 98 10/07/20 04:00 91 10/07/20 03:30 98.2 10/07/20 02:05 98.2 98 18 117/69 98 Room Air 10/07/20 00:55 98.3 105 22 127/78 97 Room Air 10/06/20 23:45 97.9 128 18 131/81 98 Room Air 10/06/20 20:39 98.6 10/06/20 20:36 98.5 115 18 128/78 99 Room Air 10/06/20 18:00 98.6 121 20 129/82 99 Room Air 10/06/20 16:00 98.8 19 125/78 98 Room Air 10/06/20 16:00 132 19 Room Air 10/06/20 15:19 98.8 132 19 125/78 (94) 98 Room Air Intake and Output 10/06/20 10/07/20 19:00 07:00 # Voids 2 # Bowel Movements 1 Laboratory Tests Test 10/06/20 16:15 10/06/20 18:00 10/06/20 18:08 10/07/20 05:42 White Blood Count 16.8 K/UL (4.8-10.8) H 13.9 K/UL (4.8-10.8) H Red Blood Count 3.82 M/UL (4.70-6.10) L 3.56 M/UL (4.70-6.10) L Hemoglobin 11.0 G/DL (14.2-18.0) L 10.0 G/DL (14.2-18.0) L Hematocrit 32.9 % (42.0-52.0) L 30.5 % (42.0-52.0) L Mean Corpuscular Volume 86 FL (80-99) 86 FL (80-99) Mean Corpuscular Hemoglobin 28.7 PG (27.0-31.0) 28.1 PG (27.0-31.0) Mean Corpuscular Hemoglobin Concent 33.3 G/DL (32.0-36.0) 32.7 G/DL (32.0-36.0) Red Cell Distribution Width 12.6 % (11.6-14.8) 13.5 % (11.6-14.8) Platelet Count 499 K/UL (150-450) H 505 K/UL (150-450) H Mean Platelet Volume 6.0 FL (6.5-10.1) L 6.1 FL (6.5-10.1) L Neutrophils (%) (Auto) 75.6 % (45.0-75.0) H 68.0 % (45.0-75.0) Lymphocytes (%) (Auto) 16.3 % (20.0-45.0) L 23.6 % (20.0-45.0) Monocytes (%) (Auto) 6.7 % (1.0-10.0) 6.5 % (1.0-10.0) Eosinophils (%) (Auto) 0.2 % (0.0-3.0) 1.0 % (0.0-3.0) Basophils (%) (Auto) 1.2 % (0.0-2.0) 0.9 % (0.0-2.0) Prothrombin Time 12.4 SEC (9.30-11.50) H Prothromb Time International Ratio 1.1 (0.9-1.1) Activated Partial Thromboplast Time 30 SEC (23-33) Sodium Level 136 MMOL/L (136-145) 137 MMOL/L (136-145) Potassium Level 4.1 MMOL/L (3.5-5.1) 3.5 MMOL/L (3.5-5.1) Chloride Level 102 MMOL/L (98-107) 104 MMOL/L (98-107) Carbon Dioxide Level 22 MMOL/L (21-32) 25 MMOL/L (21-32) Anion Gap 12 mmol/L (5-15) 8 mmol/L (5-15) Blood Urea Nitrogen 11 mg/dL (7-18) 8 mg/dL (7-18) Creatinine 0.8 MG/DL (0.55-1.30) 0.8 MG/DL (0.55-1.30) Estimat Glomerular Filtration Rate > 60 mL/min (>60) > 60 mL/min (>60) Glucose Level 101 MG/DL (74-106) 76 MG/DL (74-106) Lactic Acid Level 2.60 mmol/L (0.4-2.0) H 0.80 mmol/L (0.66-2.22) Calcium Level 8.8 MG/DL (8.5-10.1) 8.6 MG/DL (8.5-10.1) Total Bilirubin 0.6 MG/DL (0.2-1.0) 0.9 MG/DL (0.2-1.0) Aspartate Amino Transf (AST/SGOT) 12 U/L (15-37) L 12 U/L (15-37) L Alanine Aminotransferase (ALT/SGPT) 38 U/L (12-78) 32 U/L (12-78) Alkaline Phosphatase 96 U/L (46-116) 85 U/L (46-116) Total Creatine Kinase 138 U/L (26-308) Creatine Kinase MB 1.1 NG/ML (0.0-3.6) Creatine Kinase MB Relative Index 0.7 Troponin I 0.000 ng/mL (0.000-0.056) Total Protein 8.1 G/DL (6.4-8.2) 7.5 G/DL (6.4-8.2) Albumin 2.4 G/DL (3.4-5.0) L 2.2 G/DL (3.4-5.0) L Globulin 5.7 g/dL 5.3 g/dL Albumin/Globulin Ratio 0.4 (1.0-2.7) L 0.4 (1.0-2.7) L Urine Color Pale yellow Urine Appearance Clear Urine pH 7 (4.5-8.0) Urine Specific [place] 1.005 (1.005-1.035) Urine Protein 1+ (NEGATIVE) H Urine Glucose (UA) Negative (NEGATIVE) Urine Ketones Negative (NEGATIVE) Urine Blood Negative (NEGATIVE) Urine Nitrite Negative (NEGATIVE) Urine Bilirubin Negative (NEGATIVE) Urine Urobilinogen Normal MG/DL (0.0-1.0) Urine Leukocyte Esterase Negative (NEGATIVE) Urine RBC 0-2 /HPF (0 - 0) H Urine WBC 0-2 /HPF (0 - 0) Urine Squamous Epithelial Cells None /LPF (NONE/OCC) Urine Bacteria Occasional /HPF (NONE) Erythrocyte Sedimentation Rate 102 MM/HR (0-15) H Phosphorus Level 4.5 MG/DL (2.5-4.9) Magnesium Level 2.0 MG/DL (1.8-2.4) C-Reactive Protein, Quantitative 21.2 mg/dL (0.00-0.90) H Microbiology Date/Time Source Procedure Growth Status 10/06/20 22:45 Nasopharynx SARS-CoV-2 RdRp Gene Assay - Final Complete Height (Feet): 6 Height (Inches): 4.00 Weight (Pounds): 150 Medications Current Medications Medications (Trade) Dose Ordered Sig/Evelyn Route PRN Reason Start Time Stop Time Status Last Admin Dose Admin Acetaminophen (Tylenol) 650 mg Q6H PRN ORAL Mild Pain (Pain Scale 1-3) 10/07/20 03:30 11/06/20 03:29 Acetaminophen/ Hydrocodone Bitart ([place] 5/325) 1 tab Q6H PRN ORAL Moderate Pain (Pain Scale 4-6) 10/07/20 03:30 10/14/20 03:29 Gabapentin (Neurontin) 300 mg BID ORAL 10/07/20 09:00 11/06/20 08:59 10/07/20 09:21 Heparin Sodium (Porcine) (Heparin 5000 units/ml) 5,000 units EVERY 12 HOURS SUBQ 10/07/20 09:00 11/21/20 08:59 10/07/20 09:22 Iohexol (OMNIPAQUE-300 100ml) 100 ml NOW PRN INJ Radiology Procedure 10/06/20 15:45 10/08/20 15:44 Morphine Sulfate (Morphine Sulfate) 2 mg Q4H PRN IVP Severe Pain (Pain Scale 7-10) 10/07/20 03:30 10/14/20 03:29 Oxybutynin Chloride (Ditropan) 5 mg QHS ORAL 10/07/20 21:00 11/06/20 20:59 Piperacillin Sod/ Tazobactam Sod 3.375 gm/Dextrose 110 ml @ 220 mls/hr Q6H IVPB 10/07/20 12:00 10/14/20 11:59 10/07/20 12:41 Tramadol HCl (Ultram) 50 mg QHS PRN ORAL Moderate Breakthru Pain (5-7) 10/07/20 03:30 10/14/20 03:29 10/07/20 09:20 Vancomycin HCl 300 ml @ 150 mls/hr Q12H IVPB 10/07/20 09:00 10/12/20 08:59 10/07/20 09:26 Vancomycin HCl (Vanco pharmacy to dose) 1 ea DAILY PRN MISC Per rx protocol 10/06/20 19:15 11/05/20 19:14 Assessment/Plan Diagnosis Joy I: #pressure ulcer/wound infection r/o osteo #Sepsis #paraplegia #neurogenic bladder - admit inpatient - ID eval - general surg eval - continue abx per ID - pain control - resume home med - on oxybutynin time spent 65 min MIPS Hospital declaration INPATIENT level of care is warranted for this patient because patient is a 89 year old with who presents with suspicion of . I have a high level of concern because . Patient is at high risk for . Plan of care/treatment include . Patient care is expected to be greater than 2 midnights. OBSERVATION level of care is warranted for this patient. Patient is a 89 year old with who presents with . Patient will be admitted for 1 midnight, but if additional night(s) is/are necessary, patient will be converted to inpatient status for the entire hospitalization Disposition: Once the patient is stable to leave the hospital, I anticipate the patient will likely be discharged to the following environment: Estimated discharge date: I spent 70 minutes on this patient's case, and minutes was dedicated to counseling and/or care coordination. MIPS (Merit-based Incentive Payment System) Applicable CPT: 75721, 81714 CHECK ALL THAT ARE MET: Measure #5 (CHF): All ages. Prescribe ALMA/ARB upon discharge for patients with left ventricular systolic dysfunction. If not, the reason is clearly documented in the medical chart. Measure #8 (CHF): All ages. Prescribe a beta gabriel upon discharge for patients with left ventricular systolic dysfunction. If not, the reason is clearly documented in the medical chart. Measure #47 Advance care plan or surrogate decision maker documented in the medical record. Measure #130 The provider has documented, updated, or reviewed the patients current medication list and has documented it in the patients note. Measure #374 (All): Send report to referring provider. Measure #407(Sepsis due to MSSA bacteremia): Age 18+ Patient treated with a beta-lactam antibiotic (Nafcillin, Oxacillin or Cefazolin) as definitive therapy. MEDICAL COMPLEXITY High complexity medical decision making (need 2/3 categories) Problem - need 4 points Acute/new problem with new plan for workup (4 points, 1 max) Acute/new problem without additional workup (3 points, 1 max) Unstable chronic problem actively being managed (2 point each, 2 max) Stable chronic problem actively being managed (1 point each, 2 max) Self-limited/transient process (constipation, muscle ache, etc) (1 point each, 2 max) Data - need 4 points Reviewed labs/imaging studies (1 points, 2 max) Independent review of imaging (EKG, xrays, etc) (2 points, 2 max) Discussed case with consult/other MD/RN (2 points, 2 max) High Risk - qualify if have one of the following: Severe exacerbation of acute problem, acute mental status change, IV narcotics, monitoring drug levels (vancomycin, INR, tacrolimus etc) Harmony Khanna M.D. Oct 07, 2020 12:47
--- NOTE | 2020-10-07 13:07 | Cardiology Report ---
APPROVED REPORT EKG Measurement Heart [id number] <Conclusion> Sinus tachycardia Otherwise normal ECG
--- NOTE | 2020-10-07 13:14 | Consultation ---
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 He was sent to the hospital, admitted due to worsening ulcers and drainage. The patient also noted to be tachycardic and complaining of significant pain. The patient was seen by ID and started on broad-spectrum antibiotics. The patient was evaluated for COVID-19 as well and his test came back negative. He underwent an x-ray of his chest that was negative as well. At this time, the patient is saturating well on room air. REVIEW OF SYSTEMS: Denies any headaches, hematemesis, melena, hematochezia, , or weight loss. PAST MEDICAL HISTORY: Notable for paraplegia, chronic buttock ulcerations. MEDICATIONS: Current list of medications includes Zosyn, subcutaneous heparin, gabapentin, [place], morphine, oxybutynin, tramadol. PHYSICAL EXAMINATION: GENERAL: Reveals a 29-year-old male. VITAL SIGNS: Blood pressure is 119/70, heart rate 104, respirations 22, O2 saturation 98% on room air. HEENT: Unremarkable. LUNGS: Clear breath sounds. ABDOMEN: Soft. SKIN: Decubitus noted. NEUROLOGIC: Paraplegia noted. LABORATORY AND DIAGNOSTIC DATA: COVID testing negative. White count 94166, hemoglobin 10. ESR 102. Chemistry notable for AST of 12, CRP of 21. Coags are negative. Urinalysis negative. X-ray as discussed above. IMPRESSION: 1. Worsening bilateral buttock decubiti. 2. COVID-19 negative. 3. Normoxemia. DISCUSSION: The patient is doing well from a respiratory standpoint. We will follow as needed. Predominant care per ID. Recommend surgery evaluation for possible debridement. Melquiades Galvez M.D. DR: Madalyn JOB#: [id number] CC:
[2020-10-07] MEDS ORDERED: Lidocaine 4% Top Soln 50ml TOPIC SCH (13:15)
--- NOTE | 2020-10-07 13:18 | Diagnostic Imaging Report ---
Indication: Lower extremity pain Technique: Grayscale and duplex images of the bilateral lower extremity veins Comparison: Findings: Bilaterally, grayscale and duplex images demonstrate no evidence of intraluminal thrombus. Normal phasic Doppler waveforms, demonstrating normal augmentation response and no evidence of valvular insufficiency. Greater saphenous vein(s) and tibial veins are patent. Normal compressibility. Impression: Negative for evidence of lower extremity deep venous thrombosis bilaterally
[2020-10-07] MEDS ORDERED: Lidocaine 2% 20mg/ml/EPI 0.01mg/ml 20ml IV SCH (13:19)
[2020-10-07 16:00] VITALS: BP 134/71
--- NOTE | 2020-10-07 17:08 | NUR ---
NURSE NOTES:WOUND CARE NOTES:Pt presented on admission with Full Thickness Pressure Injury L Buttocks(L05.5cm x (W05cm x (D)4cm, undermining clockwise 12-3 BY 2cm @12 o'clock.Small amt slough at base of wound otherwise wound is beefy red. Bone exposure noted. No other areas of skin breakdown noted. Tx.Plan: Wound Tx orders as per Surgeon> Reposition at least every 2hours or as tolerated. Educate and encourage patient's participation in repositioning to relieve pressure off wound. Off-load heels with Pillow. APM/CHIARA Mattress overlay.
[2020-10-07] MEDS ORDERED: HYDROCODON-ACE1 EA15 ORAL (18:02)
[2020-10-07] MEDS: HYDROmorphone 1mg/ml Carpuject IVP PRN ×2 (18:47→23:13)
--- NOTE | 2020-10-07 19:43 | NUR ---
NURSE HAND-OFF REPORT: Important Events on Shift: seen by wound nurse Patient Status: alert Diet: reg Pending Orders: Pending Results/Labs: Pending MD notification: Latest Vital Signs: Temperature 98.0 , Pulse 120 , B/P 134 /71 , Respiratory Rate 20 , O2 SAT 100 , Room Air, O2 Flow Rate . Vital Sign Comment: EKG Rhythm: Sinus Tachycardia Rhythm change?: Y Notified?: Y -Dr Jey CARDONA Response: No New Orders Received Latest Vega Fall Score: 40 Fall Risk: Medium Risk Safety Measures: Call light Within Reach, Bed Alarm Zone 1, Side Rails Side Rails x2, Bed position Low and Locked. Fall Precautions: Patient Fall Education Report given to Maria LABOY.
--- NOTE | 2020-10-07 19:50 | NUR ---
NURSE NOTES: Patient received from NARDA Vargas. Patient is sleeping. Patient is A/O 4, able to make need known. Patient is on room air. No SOB or acute distress noted. Patient has IV on right AC 22G Running Zosyn at this time. Patient and flushed. No bleeding or erythema noted. Patient placed on fall precautions. Bed locked and in lowest position, side rails up x2, and call light and belongings within reach. Will continue to monitor.
[2020-10-07 20:00] VITALS: BP 114/67
--- NOTE | 2020-10-07 20:44 | Consultation ---
History of Present Illness General Reason for Hospitalization: General Complaint Present Illness HPI 29 year old male with chronic history of decubitus ulcers requiring care was noted to recently have worsening wound with drainage recommended by outpatient care provider to come in for evaluation given leukocytosis, ill appearing and worsening wound. prior debridement and cleaning performed in past recently worsening. case discussed with pcp and outpatient care provider for planning. patient states he was not doing well with pain when sitting up and discomfort. prior mri okay but recent noted osteo Allergies: Coded Allergies: No Known Allergies (Unverified , 06/07/12) COVID-19 Screening Contact w/high risk pt: No Experienced COVID-19 symptoms?: No Coronavirus symptoms experienc: Chills Medication History Scheduled Oxybutynin Chloride (Oxybutynin Chloride), 5 MG ORAL HS, (Reported) Zaleplon (Zaleplon), 10 MG ORAL QHS, (Reported) Scheduled PRN Gabapentin (Neurontin), 300 MG ORAL BID PRN for NEUROPATHIC PAIN, (Reported) Hydrocodone/Acetaminophen 5-325* (Hydrocodone/Acetaminophen 5-325*), 1 TAB ORAL Q4H PRN for For Pain, (Reported) Tramadol Hcl* (Ultram*), 50 MG ORAL BID PRN for For Pain, (Reported) Patient History History Provided By: Patient, Medical Record, PMD Healthcare decision maker Resuscitation status Advanced Directive on File Past Medical/Surgical History Past Medical/Surgical History: (1) Cellulitis (2) Abscess (3) Abscess (4) Abscess (5) Hyponatremia (6) Anemia (7) Rodriguez cyst (8) Nephrolithiasis (9) Marijuana smoker (10) UTI (urinary tract infection) (11) Viral syndrome (12) Episode of generalized weakness (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 Review of Systems Review of Symptoms General ROS: no weight loss or fever Psychological ROS: no depression or mood changes, no memory loss Ophthalmic ROS: no visual changes or eye irritation ENT ROS: no nasal congestion, hearing loss, dizziness Allergy and Immunology ROS: no allergic symptoms or urticaria Hematological and Lymphatic ROS: no swollen glands, unusual bleeding or bruising Endocrine ROS: no polyuria, polydipsia, weight changes, temperature intolerance Respiratory ROS: no cough, shortness of breath, or wheezing Cardiovascular ROS: no chest pain or dyspnea on exertion Gastrointestinal ROS: denies abdominal pain, bright red blood in stool. Musculoskeletal ROS: no myalgias or arthralgias Neurological ROS: no TIA or stroke symptoms Dermatological ROS: no new or changing skin lesions, rashes or pruritis Physical Exam Physical Exam General appearance: alert, cooperative, no distress, appears stated age Head: Normocephalic, without obvious abnormality, atraumatic Eyes: conjunctivae/corneas clear. PERRL, EOM's intact. Fundi benign Throat: Lips, mucosa, and tongue normal. Teeth and gums normal Neck: supple, symmetrical, trachea midline, no adenopathy, thyroid: not en larged, symmetric, no tenderness/mass/nodules, no carotid bruit and no JVD Lungs: clear to auscultation bilaterally Heart: regular rate and rhythm, S1, S2 normal, no murmur, click, rub or gallop Abdomen: soft, non-tender. Bowel sounds normal. No masses, no organomegaly Extremities: extremities normal, atraumatic, no cyanosis or edema Pulses: 2+ and symmetric Skin: Skin see below Neurologic: Grossly normal Last 24 Hour Vital Signs Date Time Temp Pulse Resp B/P (MAP) Pulse Ox O2 Delivery O2 Flow Rate FiO2 10/07/20 16:00 120 10/07/20 16:00 98.0 97 20 134/71 (92) 100 10/07/20 12:00 98.0 98 20 109/78 (88) 100 10/07/20 12:00 82 10/07/20 09:00 Room Air 10/07/20 08:00 98.0 101 22 119/76 (90) 100 10/07/20 08:00 102 10/07/20 04:35 Room Air 10/07/20 04:00 99.0 92 18 126/68 (87) 98 10/07/20 04:00 91 10/07/20 03:30 98.2 10/07/20 02:05 98.2 98 18 117/69 98 Room Air 10/07/20 00:55 98.3 105 22 127/78 97 Room Air 10/06/20 23:45 97.9 128 18 131/81 98 Room Air Intake and Output 10/06/20 10/07/20 19:00 07:00 # Voids 2 # Bowel Movements 1 Laboratory Tests Test 10/07/20 05:42 White Blood Count 13.9 K/UL (4.8-10.8) H Red Blood Count 3.56 M/UL (4.70-6.10) L Hemoglobin 10.0 G/DL (14.2-18.0) L Hematocrit 30.5 % (42.0-52.0) L Mean Corpuscular Volume 86 FL (80-99) Mean Corpuscular Hemoglobin 28.1 PG (27.0-31.0) Mean Corpuscular Hemoglobin Concent 32.7 G/DL (32.0-36.0) Red Cell Distribution Width 13.5 % (11.6-14.8) Platelet Count 505 K/UL (150-450) H Mean Platelet Volume 6.1 FL (6.5-10.1) L Neutrophils (%) (Auto) 68.0 % (45.0-75.0) Lymphocytes (%) (Auto) 23.6 % (20.0-45.0) Monocytes (%) (Auto) 6.5 % (1.0-10.0) Eosinophils (%) (Auto) 1.0 % (0.0-3.0) Basophils (%) (Auto) 0.9 % (0.0-2.0) Erythrocyte Sedimentation Rate 102 MM/HR (0-15) H Sodium Level 137 MMOL/L (136-145) Potassium Level 3.5 MMOL/L (3.5-5.1) Chloride Level 104 MMOL/L (98-107) Carbon Dioxide Level 25 MMOL/L (21-32) Anion Gap 8 mmol/L (5-15) Blood Urea Nitrogen 8 mg/dL (7-18) Creatinine 0.8 MG/DL (0.55-1.30) Estimat Glomerular Filtration Rate > 60 mL/min (>60) Glucose Level 76 MG/DL (74-106) Calcium Level 8.6 MG/DL (8.5-10.1) Phosphorus Level 4.5 MG/DL (2.5-4.9) Magnesium Level 2.0 MG/DL (1.8-2.4) Total Bilirubin 0.9 MG/DL (0.2-1.0) Aspartate Amino Transf (AST/SGOT) 12 U/L (15-37) L Alanine Aminotransferase (ALT/SGPT) 32 U/L (12-78) Alkaline Phosphatase 85 U/L (46-116) C-Reactive Protein, Quantitative 21.2 mg/dL (0.00-0.90) H Total Protein 7.5 G/DL (6.4-8.2) Albumin 2.2 G/DL (3.4-5.0) L Globulin 5.3 g/dL Albumin/Globulin Ratio 0.4 (1.0-2.7) L Microbiology Date/Time Source Procedure Growth Status 10/06/20 22:45 Nasopharynx SARS-CoV-2 RdRp Gene Assay - Final Complete Height (Feet): 6 Height (Inches): 4.00 Weight (Pounds): 150 Medications Current Medications Medications (Trade) Dose Ordered Sig/Evelyn Route PRN Reason Start Time Stop Time Status Last Admin Dose Admin Acetaminophen (Tylenol) 650 mg Q6H PRN ORAL Mild Pain (Pain Scale 1-3) 10/07/20 03:30 11/06/20 03:29 Acetaminophen/ Hydrocodone Bitart ([place] 5/325) 1 tab Q6H PRN ORAL Moderate Pain (Pain Scale 4-6) 10/07/20 03:30 10/14/20 03:29 Gabapentin (Neurontin) 300 mg BID ORAL 10/07/20 09:00 11/06/20 08:59 10/07/20 17:39 Heparin Sodium (Porcine) (Heparin 5000 units/ml) 5,000 units EVERY 12 HOURS SUBQ 10/07/20 09:00 11/21/20 08:59 10/07/20 09:22 Hydromorphone HCl (Dilaudid) 1 mg Q3H PRN IVP breakthrough pain 10/07/20 18:30 10/14/20 18:29 10/07/20 18:47 Iohexol (OMNIPAQUE-300 100ml) 100 ml NOW PRN INJ Radiology Procedure 10/06/20 15:45 10/08/20 15:44 Lidocaine (Xylocaine) 50 ml ONCE TOPIC 10/07/20 13:15 10/07/20 23:59 Lidocaine/ Epinephrine (Lidocaine/ Epinephrine 2%) 20 ml ONCE IV 10/07/20 13:19 10/07/20 23:59 Morphine Sulfate (Morphine Sulfate) 2 mg Q4H PRN IVP Severe Pain (Pain Scale 7-10) 10/07/20 03:30 10/14/20 03:29 Oxybutynin Chloride (Ditropan) 5 mg QHS ORAL 10/07/20 21:00 11/06/20 20:59 Piperacillin Sod/ Tazobactam Sod 3.375 gm/Dextrose 110 ml @ 220 mls/hr Q6H IVPB 10/07/20 12:00 10/14/20 11:59 10/07/20 17:39 Tramadol HCl (Ultram) 50 mg QHS PRN ORAL Moderate Breakthru Pain (5-7) 10/07/20 03:30 10/14/20 03:29 10/07/20 09:20 Vancomycin HCl 300 ml @ 150 mls/hr Q12H IVPB 10/07/20 09:00 10/12/20 08:59 10/07/20 09:26 Vancomycin HCl ([facility] pharmacy to dose) 1 ea DAILY PRN MISC Per rx protocol 10/06/20 19:15 11/05/20 19:14 Assessment/Plan Problem List: (1) Sepsis ICD Codes: A41.9 - Sepsis, unspecified organism SNOMED: 58089002 (2) Abscess ICD Codes: L02.91 - Cutaneous abscess, unspecified SNOMED: 356372470 (3) Abscess ICD Codes: L02.91 - Cutaneous abscess, unspecified SNOMED: 886503993 (4) Abscess ICD Codes: L02.91 - Cutaneous abscess, unspecified SNOMED: 049849366 (5) Anemia ICD Codes: D64.9 - Anemia SNOMED: 940213930 (6) Cellulitis ICD Codes: L03.90 - Cellulitis, unspecified SNOMED: 925563882 (7) Hyponatremia ICD Codes: E87.1 - Hyponatremia SNOMED: 32534565 (8) Nephrolithiasis ICD Codes: N20.0 - Calculus of kidney SNOMED: 14813464 (9) Rodriguez cyst ICD Codes: M71.20 - Synovial cyst of popliteal space [Rodriguez], unspecified knee SNOMED: 52810224 (10) Viral syndrome ICD Codes: B34.9 - Viral infection, unspecified SNOMED: 42285684, 609285717 (11) UTI (urinary tract infection) ICD Codes: N39.0 - UTI (urinary tract infection) SNOMED: 00047730 (12) Osteomyelitis Assessment & Plan: 29M with chronic decubitus ulcers now with osteo and declining. local wound care provided by team and patient evaluated in detail care plan discussed with patients outpatient wound care provider notes reviewed please refer to recent outpatient care eval note for details appreciate Dr. Quiros input cont with local care iv abx planned will need a picc ID input appreciated will cont with local wound care Extensive edema is seen within the medial thigh adductor musculature on the left, extending beyond the image volume. There is also extensive edema within the perineum, left greater than right as well as within the left gluteal musculature. Edema is seen inferior to the ischium within the perineum, markedly increased since prior exam. Areas of flow void likely represent gas, not evident previously. These appear to communicate with the skin surface likely indicative of a deep penetrating ulcer. Edema is different in distribution since the prior study; on the previous exam this was largely confined to the subcutaneous fat, currently mostly spares the subcutaneous fat and is predominantly within the muscle There is considerable marrow edema within the left ischium, manifested by increased STIR and decreased T1 signal. This is a new finding since previous exam. The right ischium is not well-demonstrated, somewhat hypoplastic, as previously, but no definite osseous signal abnormality in this region is demonstrated. Prominent T2 hyperintense left inguinal and left distal iliac chain lymph nodes are again demonstrated. The largest left iliac chain node appears somewhat larger than the prior exam. No definite evidence of soft tissue abscess. Previously demonstrated rectal fecal distention is not evident currently Impression: Interim marked overall worsening of inflammatory changes of the left perineum, left buttock musculature, and left adductor musculature, likely representing cellulitis/myositis given stated clinical history. Evidence of deep penetrating ulcer in the perineum extending to the ischium. Signal abnormality within the left ischium likely indicates osteomyelitis. Left inguinal and iliac chain lymphadenopathy, likely reactive given the above DAILY ESTIMATED NEEDS: Needs based on Paraplegia, wound 68kg 28-33 kcals/kg 4018-2900 total kcals 1.5-2 g protein/kg 102-136 g total protein 25-30 mL/kg 5890-2147 total fluid mLs NUTRITION DIAGNOSIS: Increased kcal and pro needs r/t wound healing as evidenced by pt is wheelchair bound, paraplegic, admitted w/ left hip and ischial osteomyelitis. CURRENT DIET: Regular PO DIET RECOMMENDATIONS: Regular + Double protein portions ADDITIONAL RECOMMENDATIONS: 1) Please obtain an updated calibrated bed scale wt for accurate CBW 2) Wound healing: MVI w/ mineral x 1 Vit C 500mg BID, ZnSO4 220mg QD x 10 days Simeon BID added to tray 3) Ensure Enlive TID w/ meals added to tray 4) Updated food preferences 5) Pt states was on [employer]- consider resuming med to maintain appetite ICD Codes: M86.9 - Osteomyelitis, unspecified SNOMED: 52944824 (13) Marijuana smoker ICD Codes: F12.20 - Cannabis dependence, uncomplicated SNOMED: 74174707 (14) Episode of generalized weakness ICD Codes: R53.1 - Weakness SNOMED: 25880888, 248091132 (15) Left ischial pressure sore ICD Codes: L89.329 - Pressure ulcer of left buttock, unspecified stage SNOMED: 472203311 (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
[2020-10-07] MEDS: Oxybutynin 5mg tab ORAL SCH (21:09)
--- NOTE | 2020-10-08 01:00 | NUR ---
NURSE NOTES: Dressing changed on patient left buttock.
[2020-10-08] MEDS: Piperacillin/Tazobactam 3.375 GM in D5W 110 ML IVPB SCH ×4 (01:35→18:49)
[2020-10-08 04:00] VITALS: BP 113/67
[2020-10-08] MEDS: HYDROmorphone 1mg/ml Carpuject IVP PRN ×4 (04:20→22:18)
--- NOTE | 2020-10-08 06:31 | NUR ---
NURSE HAND-OFF REPORT: Important Events on Shift: Patient had brake through pain, medication was given. Elevating patient bilateral legs and left buttock help reduce the pain. Patient Status: Has pain. No SOB Diet: Regular Pending Orders: Pending Results/Labs: Pending MD notification: Latest Vital Signs: Temperature 99.3 , Pulse 79 , B/P 113 /67 , Respiratory Rate 18 , O2 SAT 100 , Room Air, O2 Flow Rate . Vital Sign Comment: EKG Rhythm: Sinus Rhythm Rhythm change?: N Notified?: Quentin Khanna MD Response: No New Orders Received Latest Vega Fall Score: 40 Fall Risk: Medium Risk Safety Measures: Call light Within Reach, Bed Alarm Zone 1, Side Rails Side Rails x2, Bed position Low and Locked. Fall Precautions: Patient Fall Education Report to be given to Even naval architect.
--- NOTE | 2020-10-08 07:09 | NUR ---
CASE MANAGEMENT:REVIEW 10/08/20 SI: SEPSIS. WOUND INFECTION.OSTEOMYELITIS FAILED OUTPATIENT TREATMENT 99.3 79 18 113/67 100% ON RA LABS CURRENTLY PENDING IS: IV VANCOMYCIN Q12 IV ZOSYN Q6HRS DITROPAN PO QHS NEURONTIN PO BID HEPARIN SQ Q12 IV DILAUDID Q3HRS PRN : TELEMETRY STATUS DCP: FROM HOME
[2020-10-08 07:35] LABS: ANION GAP 8 mmol/L (5-15); BLOOD UREA NITROGEN 8 mg/dL (7-18); CALCIUM 9.7 MG/DL (8.5-10.1); CARBON DIOXIDE 26 MMOL/L (21-32); CHLORIDE 105 MMOL/L (98-107); CREATININE 0.9 MG/DL (0.55-1.30); POTASSIUM 3.8 MMOL/L (3.5-5.1); SODIUM 138 MMOL/L (136-145)
[2020-10-08 07:45] LABS: BASOPHILS % (AUTO) 0.8 % (0.0-2.0); EOSINOPHILS % (AUTO) 2.5 % (0.0-3.0); HEMATOCRIT 30.8 % (42.0-52.0); HEMOGLOBIN 10.2 G/DL (14.2-18.0); LYMPHOCYTES % (AUTO) 32.6 % (20.0-45.0); MEAN CORPUSCULAR VOLUME 83 FL (80-99); MONOCYTES % (AUTO) 8.3 % (1.0-10.0); NEUTROPHILS % (AUTO) 55.8 % (45.0-75.0); PLATELET COUNT 519 K/UL (150-450); RED BLOOD COUNT 3.73 M/UL (4.70-6.10); RED CELL DISTRIBUTION WIDTH 12.8 % (11.6-14.8); WHITE BLOOD COUNT 8.4 K/UL (4.8-10.8)
--- NOTE | 2020-10-08 07:53 | NUR ---
NURSE NOTES: Received report from NARDA Sifuentes. Patient observed to be asleep, currently on room air, no s/sx of SOB/Distress, no s/sx of discomfort. Patient with IV site located on LEWIS gauge 20, asymptomatic, inplace and intact. Bed placed on lowest and locked, call light placed within reach and will continue to monitor for any changes in patient's condition.
[2020-10-08 08:00] VITALS: BP 122/72
[2020-10-08] MEDS: Heparin 5000 units/ml inj SUBQ SCH ×2 (09:04→20:28)
[2020-10-08 12:00] VITALS: BP 122/77
[2020-10-08] MEDS: VANCOMYCIN IVPB SCH ×2 (12:48→23:30)
--- NOTE | 2020-10-08 13:02 | Internal Med Progress Note ---
Subjective Physician Name Harmony Khanna Attending Physician Harmony Khanna M.D. Current Medications Medications (Trade) Dose Ordered Sig/Evelyn Route PRN Reason Start Time Stop Time Status Last Admin Dose Admin Acetaminophen (Tylenol) 650 mg Q6H PRN ORAL Mild Pain (Pain Scale 1-3) 10/07/20 03:30 11/06/20 03:29 Acetaminophen/ Hydrocodone Bitart ([place] 5/325) 1 tab Q6H PRN ORAL Moderate Pain (Pain Scale 4-6) 10/07/20 03:30 10/14/20 03:29 Gabapentin (Neurontin) 300 mg BID ORAL 10/07/20 09:00 11/06/20 08:59 10/08/20 09:03 Heparin Sodium (Porcine) (Heparin 5000 units/ml) 5,000 units EVERY 12 HOURS SUBQ 10/07/20 09:00 11/21/20 08:59 10/08/20 09:04 Hydromorphone HCl (Dilaudid) 1 mg Q3H PRN IVP breakthrough pain 10/07/20 18:30 10/14/20 18:29 10/08/20 12:06 Iohexol (OMNIPAQUE-300 100ml) 100 ml NOW PRN INJ Radiology Procedure 10/06/20 15:45 10/08/20 15:44 Morphine Sulfate (Morphine Sulfate) 2 mg Q4H PRN IVP Severe Pain (Pain Scale 7-10) 10/07/20 03:30 10/14/20 03:29 Oxybutynin Chloride (Ditropan) 5 mg QHS ORAL 10/07/20 21:00 11/06/20 20:59 10/07/20 21:09 Piperacillin Sod/ Tazobactam Sod 3.375 gm/Dextrose 110 ml @ 220 mls/hr Q6H IVPB 10/07/20 12:00 10/14/20 11:59 10/08/20 12:05 Tramadol HCl (Ultram) 50 mg QHS PRN ORAL Moderate Breakthru Pain (5-7) 10/07/20 03:30 10/14/20 03:29 10/07/20 09:20 Vancomycin HCl 300 ml @ 150 mls/hr Q12H IVPB 10/08/20 12:30 10/13/20 12:29 10/08/20 12:48 Vancomycin HCl ([facility] pharmacy to dose) 1 ea DAILY PRN MISC Per rx protocol 10/06/20 19:15 11/05/20 19:14 Allergies: Coded Allergies: No Known Allergies (Unverified , 06/07/12) ROS Limited/Unobtainable: No Constitutional: Reports: weakness HEENT: Denies: no symptoms, eye pain, blurred vision, tearing, double vision, e ar pain, ear discharge, nose pain, nose congestion, throat pain, throat swelling, mouth pain, mouth swelling, other Cardiovascular: Denies: no symptoms, chest pain, edema, irregular heart rate, lightheadedness, palpitations, syncope, other Respiratory: Denies: no symptoms, cough, orthopnea, shortness of breath, SOB with excertion, SOB at rest, sputum, stridor, wheezing, other Gastrointestinal/Abdominal: Denies: no symptoms, abdomen distended, abdominal pain, black stools, tarry stools, blood in stool, constipated, diarrhea, difficulty swallowing, nausea, poor appetite, poor fluid intake, rectal bleeding, vomiting, other Genitourinary: Denies: no symptoms, burning, discharge, frequency, flank pain, hematuria, incontinence, pain, urgency, other Neurologic/Psychiatric: Denies: no symptoms, anxiety, depressed, emotional problems, headache, numbness, paresthesia, pre-existing deficit, seizure, tingling, tremors, weakness, other All Systems: reviewed and negative except above Subjective now plan for 6 weeks of IV abx for left hip/ischial osteomyelitis on imaging Objective Last Vital Signs Date Time Temp Pulse Resp B/P (MAP) Pulse Ox O2 Delivery O2 Flow Rate FiO2 10/08/20 12:46 97 10/08/20 12:00 98.0 20 122/77 (92) 100 10/08/20 09:00 Room Air Laboratory Tests Test 10/08/20 05:50 White Blood Count 8.4 K/UL (4.8-10.8) Red Blood Count 3.73 M/UL (4.70-6.10) L Hemoglobin 10.2 G/DL (14.2-18.0) L Hematocrit 30.8 % (42.0-52.0) L Mean Corpuscular Volume 83 FL (80-99) Mean Corpuscular Hemoglobin 27.4 PG (27.0-31.0) Mean Corpuscular Hemoglobin Concent 33.1 G/DL (32.0-36.0) Red Cell Distribution Width 12.8 % (11.6-14.8) Platelet Count 519 K/UL (150-450) H Mean Platelet Volume 6.2 FL (6.5-10.1) L Neutrophils (%) (Auto) 55.8 % (45.0-75.0) Lymphocytes (%) (Auto) 32.6 % (20.0-45.0) Monocytes (%) (Auto) 8.3 % (1.0-10.0) Eosinophils (%) (Auto) 2.5 % (0.0-3.0) Basophils (%) (Auto) 0.8 % (0.0-2.0) Sodium Level 138 MMOL/L (136-145) Potassium Level 3.8 MMOL/L (3.5-5.1) Chloride Level 105 MMOL/L (98-107) Carbon Dioxide Level 26 MMOL/L (21-32) Anion Gap 8 mmol/L (5-15) Blood Urea Nitrogen 8 mg/dL (7-18) Creatinine 0.9 MG/DL (0.55-1.30) Estimat Glomerular Filtration Rate > 60 mL/min (>60) Glucose Level 89 MG/DL (74-106) Calcium Level 9.7 MG/DL (8.5-10.1) Vancomycin Level Trough Pending Microbiology Date/Time Source Procedure Growth Status 10/06/20 22:45 Nasopharynx SARS-CoV-2 RdRp Gene Assay - Final Complete 10/06/20 16:15 Anus Gram Stain - Final Resulted 10/06/20 16:15 Wound Culture - Preliminary Gram Positive Cocci Resulted 10/06/20 16:15 Blood Blood Culture - Preliminary NO GROWTH AFTER 24 HOURS Resulted 10/06/20 16:00 Blood Blood Culture - Preliminary NO GROWTH AFTER 24 HOURS Resulted 10/06/20 12:00 Buttock Left Gram Stain - Final Resulted 10/06/20 12:00 Wound Culture - Preliminary Gram Positive Cocci Resulted Intake and Output 10/07/20 10/08/20 19:00 07:00 # Voids 3 3 # Bowel Movements 1 Objective eneral appearance: alert, cooperative, no distress, appears stated age Head: Normocephalic, without obvious abnormality, atraumatic Eyes: conjunctivae/corneas clear. PERRL, EOM's intact. Fundi benign Throat: Lips, mucosa, and tongue normal. Teeth and gums normal Neck: supple, symmetrical, trachea midline, no adenopathy, thyroid: not enla rged, symmetric, no tenderness/mass/nodules, no carotid bruit and no JVD Lungs: clear to auscultation bilaterally Heart: regular rate and rhythm, S1, S2 normal, no murmur, click, rub or gallop Abdomen: soft, non-tender. Bowel sounds normal. No masses, no organomegaly Extremities: extremities normal, atraumatic, no cyanosis or edema Pulses: 2+ and symmetric Skin: + pressure ulcer with drainage Neurologic: Grossly normal Assessment/Plan Assessment/Plan #pressure ulcer/wound infection r/o osteo- #Sepsis #paraplegia #neurogenic bladder - admit inpatient - ID eval - general surg eval - continue abx per ID - pain control - resume home med - on oxybutynin time spent 65 min Harmony Khanna M.D. Oct 08, 2020 13:02
[2020-10-08] MEDS ORDERED: TraZODone 50mg tab ORAL SCH (14:00)
--- NOTE | 2020-10-08 15:12 | Pulmonology Progress Note ---
Subjective ROS Limited/Unobtainable: No Interval Events: none major event per nursing Constitutional: Reports: no symptoms HEENT: Repors: no symptoms Respiratory: Reports: no symptoms Cardiovascular: Reports: no symptoms Gastrointestinal/Abdominal: Reports: no symptoms Allergies: Coded Allergies: No Known Allergies (Unverified , 06/07/12) Objective Last 24 Hour Vital Signs Date Time Temp Pulse Resp B/P (MAP) Pulse Ox O2 Delivery O2 Flow Rate FiO2 10/08/20 12:46 97 10/08/20 12:00 98.0 93 20 122/77 (92) 100 10/08/20 09:00 Room Air 10/08/20 08:00 98.0 101 20 122/72 (89) 99 10/08/20 08:00 128 10/08/20 04:00 99.3 79 18 113/67 (82) 100 10/08/20 03:11 72 10/08/20 00:13 81 10/07/20 21:00 Room Air 10/07/20 20:44 82 10/07/20 20:00 98.1 87 17 114/67 (83) 98 10/07/20 20:00 98.1 87 17 114/67 (83) 98 10/07/20 16:00 120 10/07/20 16:00 98.0 97 20 134/71 (92) 100 Intake and Output 10/07/20 10/08/20 19:00 07:00 # Voids 3 3 # Bowel Movements 1 General Appearance: no acute distress Respiratory: lungs clear Cardiovascular: normal rate, regular rhythm Abdomen: soft, non tender Microbiology Date/Time Source Procedure Growth Status 10/06/20 22:45 Nasopharynx SARS-CoV-2 RdRp Gene Assay - Final Complete 10/06/20 16:15 Anus Gram Stain - Final Resulted 10/06/20 16:15 Wound Culture - Preliminary Gram Positive Cocci Resulted 10/06/20 16:15 Blood Blood Culture - Preliminary NO GROWTH AFTER 24 HOURS Resulted 10/06/20 16:00 Blood Blood Culture - Preliminary NO GROWTH AFTER 24 HOURS Resulted 10/06/20 12:00 Buttock Left Gram Stain - Final Resulted 10/06/20 12:00 Wound Culture - Preliminary Gram Positive Cocci Resulted Laboratory Tests 10/08/20 05:50: White Blood Count 8.4, Red Blood Count 3.73L, Hemoglobin 10.2L, Hematocrit 30.8L , Mean Corpuscular Volume 83, Mean Corpuscular Hemoglobin 27.4, Mean Corpuscular Hemoglobin Concent 33.1, Red Cell Distribution Width 12.8, Platelet Count 519H, Mean Platelet Volume 6.2L, Neutrophils (%) (Auto) 55.8, Lymphocytes (%) (Auto) 32.6, Monocytes (%) (Auto) 8.3, Eosinophils (%) (Auto) 2.5, Basophils (%) (Auto) 0.8, Sodium Level 138, Potassium Level 3.8, Chloride Level 105, Carbon Dioxide Level 26, Anion Gap 8, Blood Urea Nitrogen 8, Creatinine 0.9, Estimat Glomerular Filtration Rate > 60, Glucose Level 89, Calcium Level 9.7, Vancomycin Level Trough [Pending] Current Medications Medications (Trade) Dose Ordered Sig/Evelyn Route PRN Reason Start Time Stop Time Status Last Admin Dose Admin Acetaminophen (Tylenol) 650 mg Q6H PRN ORAL Mild Pain (Pain Scale 1-3) 10/07/20 03:30 11/06/20 03:29 Acetaminophen/ Hydrocodone Bitart ([place] 5/325) 1 tab Q6H PRN ORAL Moderate Pain (Pain Scale 4-6) 10/07/20 03:30 10/14/20 03:29 Gabapentin (Neurontin) 300 mg BID ORAL 10/07/20 09:00 11/06/20 08:59 10/08/20 09:03 Heparin Sodium (Porcine) (Heparin 5000 units/ml) 5,000 units EVERY 12 HOURS SUBQ 10/07/20 09:00 11/21/20 08:59 10/08/20 09:04 Hydromorphone HCl (Dilaudid) 1 mg Q3H PRN IVP breakthrough pain 10/07/20 18:30 10/14/20 18:29 10/08/20 12:06 Iohexol (OMNIPAQUE-300 100ml) 100 ml NOW PRN INJ Radiology Procedure 10/06/20 15:45 10/08/20 15:44 Morphine Sulfate (Morphine Sulfate) 2 mg Q4H PRN IVP Severe Pain (Pain Scale 7-10) 10/07/20 03:30 10/14/20 03:29 Oxybutynin Chloride (Ditropan) 5 mg QHS ORAL 10/07/20 21:00 11/06/20 20:59 10/07/20 21:09 Piperacillin Sod/ Tazobactam Sod 3.375 gm/Dextrose 110 ml @ 220 mls/hr Q6H IVPB 10/07/20 12:00 10/14/20 11:59 10/08/20 12:05 Tramadol HCl (Ultram) 50 mg QHS PRN ORAL Moderate Breakthru Pain (5-7) 10/07/20 03:30 10/14/20 03:29 10/07/20 09:20 Trazodone HCl (Desyrel) 50 mg HSPRN PRN ORAL Insomnia 10/08/20 14:00 11/07/20 13:59 Vancomycin HCl 300 ml @ 150 mls/hr Q12H IVPB 10/08/20 12:30 10/13/20 12:29 10/08/20 12:48 Vancomycin HCl ([facility] pharmacy to dose) 1 ea DAILY PRN MISC Per rx protocol 10/06/20 19:15 11/05/20 19:14 Assessment/Plan Assessment/Plan 1. Worsening bilateral buttock decubiti. - surgery and ID following - PICC line 2. COVID-19 negative. - currently saturating well on RA - Pt is doing well from a respiratory standpoint. We will follow as needed. 3. Normoxemia. - Provide supplemental oxygen as needed The care for this patient was discussed with my supervising physician Time spent for this case was approximately 31 minutes Jacques Chadwick Oct 08, 2020 15:12
[2020-10-08 16:00] VITALS: BP 131/70
--- NOTE | 2020-10-08 16:40 | NUR ---
NURSE NOTES: Report received from Adrienne RN, rounds made. Patient transferred to [facility] via bed on RA, in stable condition. All belongings (WC) reviewed. Oriented patient to room and call light. Left buttocks wound, dressing CDI. Bed in lowest position, will continue to monitor.
--- NOTE | 2020-10-08 16:46 | Surgery Progress Note ---
Surgery Progress Note Subjective Additional Comments better today states pain improved last night and he was able to sleep better no n/v dressings going well Objective Last 24 Hour Vital Signs Date Time Temp Pulse Resp B/P (MAP) Pulse Ox O2 Delivery O2 Flow Rate FiO2 10/08/20 16:00 98.1 89 20 131/70 (90) 98 10/08/20 12:46 97 10/08/20 12:00 98.0 93 20 122/77 (92) 100 10/08/20 09:00 Room Air 10/08/20 08:00 98.0 101 20 122/72 (89) 99 10/08/20 08:00 128 10/08/20 04:00 99.3 79 18 113/67 (82) 100 10/08/20 03:11 72 10/08/20 00:13 81 10/07/20 21:00 Room Air 10/07/20 20:44 82 10/07/20 20:00 98.1 87 17 114/67 (83) 98 10/07/20 20:00 98.1 87 17 114/67 (83) 98 I&O Intake and Output 10/07/20 10/08/20 19:00 07:00 # Voids 3 3 # Bowel Movements 1 Dressing: saturated Cardiovascular: RSR Respiratory: decreased breath sounds Abdomen: soft, non-tender, present bowel sounds, non-distended Extremities: no edema, no tenderness, no cyanosis Laboratory Tests Test 10/08/20 05:50 White Blood Count 8.4 K/UL (4.8-10.8) Red Blood Count 3.73 M/UL (4.70-6.10) L Hemoglobin 10.2 G/DL (14.2-18.0) L Hematocrit 30.8 % (42.0-52.0) L Mean Corpuscular Volume 83 FL (80-99) Mean Corpuscular Hemoglobin 27.4 PG (27.0-31.0) Mean Corpuscular Hemoglobin Concent 33.1 G/DL (32.0-36.0) Red Cell Distribution Width 12.8 % (11.6-14.8) Platelet Count 519 K/UL (150-450) H Mean Platelet Volume 6.2 FL (6.5-10.1) L Neutrophils (%) (Auto) 55.8 % (45.0-75.0) Lymphocytes (%) (Auto) 32.6 % (20.0-45.0) Monocytes (%) (Auto) 8.3 % (1.0-10.0) Eosinophils (%) (Auto) 2.5 % (0.0-3.0) Basophils (%) (Auto) 0.8 % (0.0-2.0) Sodium Level 138 MMOL/L (136-145) Potassium Level 3.8 MMOL/L (3.5-5.1) Chloride Level 105 MMOL/L (98-107) Carbon Dioxide Level 26 MMOL/L (21-32) Anion Gap 8 mmol/L (5-15) Blood Urea Nitrogen 8 mg/dL (7-18) Creatinine 0.9 MG/DL (0.55-1.30) Estimat Glomerular Filtration Rate > 60 mL/min (>60) Glucose Level 89 MG/DL (74-106) Calcium Level 9.7 MG/DL (8.5-10.1) Vancomycin Level Trough Pending Plan Problems: (1) Sepsis (2) Abscess (3) Abscess (4) Abscess (5) Anemia (6) Cellulitis (7) Hyponatremia (8) Nephrolithiasis (9) Rodriguez cyst (10) Viral syndrome (11) UTI (urinary tract infection) (12) Osteomyelitis Assessment & Plan: 29M with chronic decubitus ulcers now with osteo and declining. local wound care provided by team and patient evaluated in detail care plan discussed with patients outpatient wound care provider notes reviewed please refer to recent outpatient care eval note for details appreciate Dr. Quiros input cont with local care iv abx planned will need a picc ID input appreciated will cont with local wound care Extensive edema is seen within the medial thigh adductor musculature on the left, extending beyond the image volume. There is also extensive edema within the perineum, left greater than right as well as within the left gluteal musculature. Edema is seen inferior to the ischium within the perineum, markedly increased since prior exam. Areas of flow void likely represent gas, not evident previously. These appear to communicate with the skin surface likely indicative of a deep penetrating ulcer. Edema is different in distribution since the prior study; on the previous exam this was largely confined to the subcutaneous fat, currently mostly spares the subcutaneous fat and is predominantly within the muscle There is considerable marrow edema within the left ischium, manifested by increased STIR and decreased T1 signal. This is a new finding since previous exam. The right ischium is not well-demonstrated, somewhat hypoplastic, as previously, but no definite osseous signal abnormality in this region is demonstrated. Prominent T2 hyperintense left inguinal and left distal iliac chain lymph nodes are again demonstrated. The largest left iliac chain node appears somewhat larger than the prior exam. No definite evidence of soft tissue abscess. Previously demonstrated rectal fecal distention is not evident currently Impression: Interim marked overall worsening of inflammatory changes of the left perineum, left buttock musculature, and left adductor musculature, likely representing cellulitis/myositis given stated clinical history. Evidence of deep penetrating ulcer in the perineum extending to the ischium. Signal abnormality within the left ischium likely indicates osteomyelitis. Left inguinal and iliac chain lymphadenopathy, likely reactive given the above DAILY ESTIMATED NEEDS: Needs based on Paraplegia, wound 68kg 28-33 kcals/kg 2747-3963 total kcals 1.5-2 g protein/kg 102-136 g total protein 25-30 mL/kg 2080-3472 total fluid mLs NUTRITION DIAGNOSIS: Increased kcal and pro needs r/t wound healing as evidenced by pt is wheelchair bound, paraplegic, admitted w/ left hip and ischial osteomyelitis. 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
--- NOTE | 2020-10-08 16:53 | NUR ---
HAND-OFF: Report given to NARDA Berg.
[2020-10-08 17:00] VITALS: BP 147/80
[2020-10-08] MEDS: Ascorbic Acid 500mg tab ORAL SCH (17:25)
--- NOTE | 2020-10-08 18:09 | Infectious Diseases Prog Note ---
Assessment/Plan Assessment/Plan ASSESSMENT AND PLAN: 1. left buttock/gluteal wound infection with left hip/ischial osteomyelitis on imaging, cellulitis, perineal involvement wound culture with gram + organisms, cultures pending sepsis, leukocytosis, elevated sed rate - vancomycin and zosyn - day # 3 antibiotics - monitor labs, f/u on final wound cultures - surgery f/u noted - will likely need 6 weeks antibiotics 2. The patient has history of asthma. 3. Paraplegia. 4. Spinal cord injury. 5. History of back surgery. 6. Paraplegia and weakness. 7. COVID testing four weeks ago was negative. Currently, he has no fevers. Chest x-ray is negative. 8. Anemia. 9. Continue treatment per primary consultants. 10. Orders were noted and entered. 11. No known drug allergies. 12. Social history is negative. 13. Family is noncontributory. 14. MAR is noted. 15. Case was discussed with RN. Subjective Constitutional: Denies: fever HEENT: Denies: congestion Respiratory: Denies: shortness of breath Cardiovascular: Denies: chest pain Gastrointestinal/Abdominal: Denies: nausea, vomiting, diarrhea Genitourinary: Reports: other - no kelley Neurologic: Denies: headache Psychiatric: Denies: depression Skin: Denies: rash Hematologic: Denies: bleeding Musculoskeletal: Denies: pain Allergies: Coded Allergies: No Known Allergies (Unverified , 06/07/12) Objective Last 24 Hour Vital Signs Date Time Temp Pulse Resp B/P (MAP) Pulse Ox O2 Delivery O2 Flow Rate FiO2 10/08/20 17:00 97.3 102 20 147/80 (102) 98 10/08/20 16:00 98.1 89 20 131/70 (90) 98 10/08/20 12:46 97 10/08/20 12:00 98.0 93 20 122/77 (92) 100 10/08/20 09:00 Room Air 10/08/20 08:00 98.0 101 20 122/72 (89) 99 10/08/20 08:00 128 10/08/20 04:00 99.3 79 18 113/67 (82) 100 10/08/20 03:11 72 10/08/20 00:13 81 10/07/20 21:00 Room Air 10/07/20 20:44 82 10/07/20 20:00 98.1 87 17 114/67 (83) 98 10/07/20 20:00 98.1 87 17 114/67 (83) 98 Height (Feet): 6 Height (Inches): 4.00 Weight (Pounds): 150 General Appearance: no acute distress HEENT: normocephalic, atraumatic, anicteric, mucous membranes moist Respiratory/Chest: lungs clear, normal breath sounds, no respiratory distress, no accessory muscle use Cardiovascular: normal rate, regular rhythm, no gallop/murmur, no JVD Abdomen: normal bowel sounds, soft, non tender, no organomegaly, non distended Genitourinary: other - no kelley Extremities: no cyanosis Skin: no rash, other - wounds - covered Neurologic/Psychiatric: personal care aide II-XII 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 Left inferior gluteal decubitus ulcer with prominent fat stranding. The ulceration extends to the level of the left ischium. 2. Small amount of lucency in the left ischial bone is concerning for osteomyelitis. 3. Mild prominence of the bladder wall is nonspecific. Please correlate with urinalysis if concerned for cystitis. 4. Nonspecific mildly prominent mesenteric and retroperitoneal lymph nodes which may be reactive. Nonspecific prominent left inguinal and iliac chain lymph nodes. These are increased compared to prior exam. Outpatient MRI noted - report noted, c/w osteomyelitis Procedure: XRAY Chest 1v Indication: Shortness of breath Technique: One view of the chest Comparison: 10/17/2017 Findings: Lungs and pleural spaces are clear. Heart size is normal. No significa nt change Impression: No acute process Microbiology Date/Time Source Procedure Growth Status 10/06/20 22:45 Nasopharynx SARS-CoV-2 RdRp Gene Assay - Final Complete 10/06/20 16:15 Anus Gram Stain - Final Resulted 10/06/20 16:15 Wound Culture - Preliminary Gram Positive Cocci Resulted 10/06/20 16:15 Blood Blood Culture - Preliminary NO GROWTH AFTER 48 HOURS Resulted 10/06/20 16:00 Blood Blood Culture - Preliminary NO GROWTH AFTER 48 HOURS Resulted 10/06/20 12:00 Buttock Left Gram Stain - Final Resulted 10/06/20 12:00 Wound Culture - Preliminary Gram Positive Cocci Resulted Laboratory Tests Test 10/08/20 05:50 White Blood Count 8.4 K/UL (4.8-10.8) Red Blood Count 3.73 M/UL (4.70-6.10) L Hemoglobin 10.2 G/DL (14.2-18.0) L Hematocrit 30.8 % (42.0-52.0) L Mean Corpuscular Volume 83 FL (80-99) Mean Corpuscular Hemoglobin 27.4 PG (27.0-31.0) Mean Corpuscular Hemoglobin Concent 33.1 G/DL (32.0-36.0) Red Cell Distribution Width 12.8 % (11.6-14.8) Platelet Count 519 K/UL (150-450) H Mean Platelet Volume 6.2 FL (6.5-10.1) L Neutrophils (%) (Auto) 55.8 % (45.0-75.0) Lymphocytes (%) (Auto) 32.6 % (20.0-45.0) Monocytes (%) (Auto) 8.3 % (1.0-10.0) Eosinophils (%) (Auto) 2.5 % (0.0-3.0) Basophils (%) (Auto) 0.8 % (0.0-2.0) Sodium Level 138 MMOL/L (136-145) Potassium Level 3.8 MMOL/L (3.5-5.1) Chloride Level 105 MMOL/L (98-107) Carbon Dioxide Level 26 MMOL/L (21-32) Anion Gap 8 mmol/L (5-15) Blood Urea Nitrogen 8 mg/dL (7-18) Creatinine 0.9 MG/DL (0.55-1.30) Estimat Glomerular Filtration Rate > 60 mL/min (>60) Glucose Level 89 MG/DL (74-106) Calcium Level 9.7 MG/DL (8.5-10.1) Vancomycin Level Trough Pending Current Medications Medications (Trade) Dose Ordered Sig/Evelyn Route PRN Reason Start Time Stop Time Status Last Admin Dose Admin Acetaminophen (Tylenol) 650 mg Q6H PRN ORAL Mild Pain (Pain Scale 1-3) 10/07/20 03:30 11/06/20 03:29 Acetaminophen/ Hydrocodone Bitart ([place] 5/325) 1 tab Q6H PRN ORAL Moderate Pain (Pain Scale 4-6) 10/07/20 03:30 10/14/20 03:29 Ascorbic Acid (Vitamin C) 500 mg TWICE A DAY ORAL 10/08/20 18:00 11/07/20 17:59 10/08/20 17:25 Gabapentin (Neurontin) 300 mg BID ORAL 10/07/20 09:00 11/06/20 08:59 10/08/20 17:25 Heparin Sodium (Porcine) (Heparin 5000 units/ml) 5,000 units EVERY 12 HOURS SUBQ 10/07/20 09:00 11/21/20 08:59 10/08/20 09:04 Hydromorphone HCl (Dilaudid) 1 mg Q3H PRN IVP breakthrough pain 10/07/20 18:30 10/14/20 18:29 10/08/20 17:15 Morphine Sulfate (Morphine Sulfate) 2 mg Q4H PRN IVP Severe Pain (Pain Scale 7-10) 10/07/20 03:30 10/14/20 03:29 Multivitamins (Multivitamins) 1 tab DAILY ORAL 10/09/20 09:00 11/08/20 08:59 Oxybutynin Chloride (Ditropan) 5 mg QHS ORAL 10/07/20 21:00 11/06/20 20:59 10/07/20 21:09 Piperacillin Sod/ Tazobactam Sod 3.375 gm/Dextrose 110 ml @ 220 mls/hr Q6H IVPB 10/07/20 12:00 10/14/20 11:59 10/08/20 12:05 Tramadol HCl (Ultram) 50 mg QHS PRN ORAL Moderate Breakthru Pain (5-7) 10/07/20 03:30 10/14/20 03:29 10/07/20 09:20 Trazodone HCl (Desyrel) 50 mg HSPRN PRN ORAL Insomnia 10/08/20 14:00 11/07/20 13:59 Vancomycin HCl 300 ml @ 150 mls/hr Q12H IVPB 10/08/20 12:30 10/13/20 12:29 10/08/20 12:48 Vancomycin HCl (Vanco pharmacy to dose) 1 ea DAILY PRN MISC Per rx protocol 10/06/20 19:15 11/05/20 19:14 Zinc Sulfate (Zinc Sulfate) 220 mg DAILY ORAL 10/09/20 09:00 10/19/20 08:59 Cinthia Arroyo MD Oct 08, 2020 18:09
--- NOTE | 2020-10-08 19:27 | NUR ---
NURSE HAND-OFF: Important Events on Shift:Transfer from [facility] at 1640 (all belongings, WC), P200 mattress Patient Status: stable Diet: Regular Pending Orders: Labs AM Pending Results/Labs:CBC BMP 10/09 Pending MD notification:none Latest Vital Signs: Temperature 97.3 , Pulse 102 , B/P 147 /80 , Respiratory Rate 20 , O2 SAT 98 , Room Air, O2 Flow Rate . Vital Sign Comment: none Latest Vega Fall Score: 40 Fall Risk: Medium Risk Safety Measures: Call light Within Reach, Bed Alarm Zone 1, Side Rails Side Rails x2, Bed position Low and Locked. Fall Precautions: Patient Fall Education Report given to Mohit LABOY.
[2020-10-08 20:00] VITALS: BP 127/67
--- NOTE | 2020-10-08 20:00 | NUR ---
NURSE NOTES: Patient in bed, aox4, zosyn infusing. No signs of infiltration on the IV site. Call light in reach. No acute distress at this time. Will continue with plan of care. Addendum: 10/08/20 at 2224 by JUAN CARLOS SELF RN RN Pt c/o 8/10 pain with chills due to pain. Offered morphine as ordered. Patient stated that morphine does not usually relieve his pain at all. Explained to patient re: dilaudid is only for breakthrough; patient insist on getting dilaudid for tonight and stated he will try to be on morphine tomorrow instead because his pain right now is too extreme for morphine.
[2020-10-08] MEDS: Oxybutynin 5mg tab ORAL SCH (20:27)
[2020-10-08] MEDS: TraZODone 50mg tab ORAL PRN (23:45)
--- NOTE | 2020-10-08 23:45 | NUR ---
NURSE NOTES: Left ischial wound dressing saturated. Dressing changed, tolerated well.
[2020-10-09] VITALS: BP 119/75
[2020-10-09] MEDS: Morphine Sulfate 2mg/ml Inj(IV/IM USE ONLY) IVP PRN ×3 (01:27→22:58)
[2020-10-09] MEDS: Piperacillin/Tazobactam 3.375 GM in D5W 110 ML IVPB SCH ×5 (01:27→23:02)
[2020-10-09 04:00] VITALS: BP 114/74
[2020-10-09] MEDS: HYDROmorphone 1mg/ml Carpuject IVP PRN ×3 (04:27→19:29)
--- NOTE | 2020-10-09 07:24 | NUR ---
NURSE HAND-OFF: Important Events on Shift:[pain management, dressing changed] Patient Status: [stable] Diet: [Regular] Pending Orders: [] Pending Results/Labs:[] Pending MD notification:[] Latest Vital Signs: Temperature 98.1 , Pulse 79 , B/P 114 /74 , Respiratory Rate 17 , O2 SAT 95 , Room Air, O2 Flow Rate . Vital Sign Comment: [] Latest Vega Fall Score: 35 Fall Risk: Medium Risk Safety Measures: Call light Within Reach, Bed Alarm Zone 1, Side Rails Side Rails x2, Bed position Low and Locked. Fall Precautions: Patient Fall Education Report given to [Giovanny].
--- NOTE | 2020-10-09 07:45 | NUR ---
NURSE NOTES: Received report from NARDA Rueda. Patient awake, alert and oriented, on room air, no acute distress or discomfort IV site asymptomatic and intact. Wound dressing clean, dry and intact. Bed in lowest and locked, call light within reach and will continue to monitor.
[2020-10-09 08:00] VITALS: BP 120/66
[2020-10-09] MEDS: Zinc Sulfate 220mg ORAL SCH (08:36)
[2020-10-09] MEDS: Ascorbic Acid 500mg tab ORAL SCH ×2 (08:36→18:34)
[2020-10-09] MEDS: Heparin 5000 units/ml inj SUBQ SCH ×2 (08:41→20:34)
--- NOTE | 2020-10-09 08:49 | Pulmonology Progress Note ---
Subjective ROS Limited/Unobtainable: No Interval Events: none major event per nursing Constitutional: Denies: fever HEENT: Repors: no symptoms Respiratory: Reports: no symptoms Cardiovascular: Reports: no symptoms Gastrointestinal/Abdominal: Denies: nausea, vomiting, diarrhea Psychiatric: Denies: depression Skin: Denies: rash Musculoskeletal: Denies: pain Allergies: Coded Allergies: No Known Allergies (Unverified , 06/07/12) Objective Last 24 Hour Vital Signs Date Time Temp Pulse Resp B/P (MAP) Pulse Ox O2 Delivery O2 Flow Rate FiO2 10/09/20 04:00 98.1 79 17 114/74 (87) 95 10/09/20 00:00 97.8 94 17 119/75 (90) 96 10/08/20 21:00 Room Air 10/08/20 20:00 98.5 99 17 127/67 (87) 99 10/08/20 17:00 97.3 102 20 147/80 (102) 98 10/08/20 16:00 98.1 89 20 131/70 (90) 98 10/08/20 14:00 85 10/08/20 12:46 97 10/08/20 12:00 98.0 93 20 122/77 (92) 100 10/08/20 09:00 Room Air Intake and Output 10/08/20 10/09/20 19:00 07:00 Intake Total 520 ml Output Total 1300 ml Balance -780 ml Intake IV Total 520 ml Output Urine Total 1300 ml General Appearance: no acute distress Respiratory: lungs clear Cardiovascular: normal rate, regular rhythm Abdomen: soft, non tender Microbiology Date/Time Source Procedure Growth Status 10/06/20 22:45 Nasopharynx SARS-CoV-2 RdRp Gene Assay - Final Complete 10/06/20 16:15 Anus Gram Stain - Final Resulted 10/06/20 16:15 Wound Culture - Preliminary Gram Positive Cocci Resulted 10/06/20 16:15 Blood Blood Culture - Preliminary NO GROWTH AFTER 48 HOURS Resulted 10/06/20 16:00 Blood Blood Culture - Preliminary NO GROWTH AFTER 48 HOURS Resulted 10/06/20 12:00 Buttock Left Gram Stain - Final Resulted 10/06/20 12:00 Wound Culture - Preliminary Gram Positive Cocci Resulted Current Medications Medications (Trade) Dose Ordered Sig/Evelyn Route PRN Reason Start Time Stop Time Status Last Admin Dose Admin Acetaminophen (Tylenol) 650 mg Q6H PRN ORAL Mild Pain (Pain Scale 1-3) 10/07/20 03:30 11/06/20 03:29 Acetaminophen/ Hydrocodone Bitart ([place] 5/325) 1 tab Q6H PRN ORAL Moderate Pain (Pain Scale 4-6) 10/07/20 03:30 10/14/20 03:29 Ascorbic Acid (Vitamin C) 500 mg TWICE A DAY ORAL 10/08/20 18:00 11/07/20 17:59 10/09/20 08:36 Gabapentin (Neurontin) 300 mg BID ORAL 10/07/20 09:00 11/06/20 08:59 10/09/20 08:36 Heparin Sodium (Porcine) (Heparin 5000 units/ml) 5,000 units EVERY 12 HOURS SUBQ 10/07/20 09:00 11/21/20 08:59 10/09/20 08:41 Hydromorphone HCl (Dilaudid) 1 mg Q3H PRN IVP breakthrough pain 10/07/20 18:30 10/14/20 18:29 10/09/20 04:27 Morphine Sulfate (Morphine Sulfate) 2 mg Q4H PRN IVP Severe Pain (Pain Scale 7-10) 10/07/20 03:30 10/14/20 03:29 10/09/20 01:27 Multivitamins (Multivitamins) 1 tab DAILY ORAL 10/09/20 09:00 11/08/20 08:59 10/09/20 08:36 Oxybutynin Chloride (Ditropan) 5 mg QHS ORAL 10/07/20 21:00 11/06/20 20:59 10/08/20 20:27 Piperacillin Sod/ Tazobactam Sod 3.375 gm/Dextrose 110 ml @ 220 mls/hr Q6H IVPB 10/07/20 12:00 10/14/20 11:59 10/09/20 06:23 Tramadol HCl (Ultram) 50 mg QHS PRN ORAL Moderate Breakthru Pain (5-7) 10/07/20 03:30 10/14/20 03:29 10/07/20 09:20 Trazodone HCl (Desyrel) 50 mg HSPRN PRN ORAL Insomnia 10/08/20 14:00 11/07/20 13:59 10/08/20 23:45 Vancomycin HCl 300 ml @ 150 mls/hr Q12H IVPB 10/08/20 12:30 10/13/20 12:29 10/08/20 23:30 Vancomycin HCl (Vanco pharmacy to dose) 1 ea DAILY PRN MISC Per rx protocol 10/06/20 19:15 11/05/20 19:14 Zinc Sulfate (Zinc Sulfate) 220 mg DAILY ORAL 10/09/20 09:00 10/19/20 08:59 10/09/20 08:36 Assessment/Plan Assessment/Plan 1. Worsening bilateral buttock decubiti. - surgery and ID following - PICC line - ID recs noted on x6 week course of Abx 2. COVID-19 negative. - currently saturating well on RA - Pt is doing well from a respiratory standpoint. Will sign off. 3. Normoxemia. - Provide supplemental oxygen as needed The care for this patient was discussed with my supervising physician Time spent for this case was approximately 31 minutes Jacques Chadwick Oct 09, 2020 08:49 Melquiades Galvez MD Oct 09, 2020 16:54
[2020-10-09 09:38] LABS: BASOPHILS % (AUTO) 0.9 % (0.0-2.0); EOSINOPHILS % (AUTO) 2.4 % (0.0-3.0); HEMATOCRIT 31.2 % (42.0-52.0); HEMOGLOBIN 10.3 G/DL (14.2-18.0); LYMPHOCYTES % (AUTO) 26.8 % (20.0-45.0); MEAN CORPUSCULAR VOLUME 83 FL (80-99); MONOCYTES % (AUTO) 7.3 % (1.0-10.0); NEUTROPHILS % (AUTO) 62.6 % (45.0-75.0); PLATELET COUNT 528 K/UL (150-450); RED BLOOD COUNT 3.75 M/UL (4.70-6.10); RED CELL DISTRIBUTION WIDTH 12.6 % (11.6-14.8); WHITE BLOOD COUNT 7.5 K/UL (4.8-10.8)
[2020-10-09 09:51] LABS: ANION GAP 9 mmol/L (5-15); BLOOD UREA NITROGEN 8 mg/dL (7-18); CALCIUM 9.1 MG/DL (8.5-10.1); CARBON DIOXIDE 24 MMOL/L (21-32); CHLORIDE 106 MMOL/L (98-107); CREATININE 0.8 MG/DL (0.55-1.30); POTASSIUM 3.7 MMOL/L (3.5-5.1); SODIUM 139 MMOL/L (136-145)
[2020-10-09] MEDS: VANCOMYCIN IVPB SCH (11:36)
[2020-10-09 12:00] VITALS: BP 122/72
--- NOTE | 2020-10-09 12:38 | Internal Med Progress Note ---
Subjective Physician Name Harmony Khanna Attending Physician Harmony Khanna M.D. Current Medications Medications (Trade) Dose Ordered Sig/Evelyn Route PRN Reason Start Time Stop Time Status Last Admin Dose Admin Acetaminophen (Tylenol) 650 mg Q6H PRN ORAL Mild Pain (Pain Scale 1-3) 10/07/20 03:30 11/06/20 03:29 Acetaminophen/ Hydrocodone Bitart ([place] 5/325) 1 tab Q6H PRN ORAL Moderate Pain (Pain Scale 4-6) 10/07/20 03:30 10/14/20 03:29 Ascorbic Acid (Vitamin C) 500 mg TWICE A DAY ORAL 10/08/20 18:00 11/07/20 17:59 10/09/20 08:36 Gabapentin (Neurontin) 300 mg BID ORAL 10/07/20 09:00 11/06/20 08:59 10/09/20 08:36 Heparin Sodium (Porcine) (Heparin 5000 units/ml) 5,000 units EVERY 12 HOURS SUBQ 10/07/20 09:00 11/21/20 08:59 10/09/20 08:41 Hydromorphone HCl (Dilaudid) 1 mg Q3H PRN IVP breakthrough pain 10/07/20 18:30 10/14/20 18:29 10/09/20 11:44 Morphine Sulfate (Morphine Sulfate) 2 mg Q4H PRN IVP Severe Pain (Pain Scale 7-10) 10/07/20 03:30 10/14/20 03:29 10/09/20 01:27 Multivitamins (Multivitamins) 1 tab DAILY ORAL 10/09/20 09:00 11/08/20 08:59 10/09/20 08:36 Oxybutynin Chloride (Ditropan) 5 mg QHS ORAL 10/07/20 21:00 11/06/20 20:59 10/08/20 20:27 Piperacillin Sod/ Tazobactam Sod 3.375 gm/Dextrose 110 ml @ 220 mls/hr Q6H IVPB 10/07/20 12:00 10/14/20 11:59 10/09/20 11:36 Tramadol HCl (Ultram) 50 mg QHS PRN ORAL Moderate Breakthru Pain (5-7) 10/07/20 03:30 10/14/20 03:29 10/07/20 09:20 Trazodone HCl (Desyrel) 50 mg HSPRN PRN ORAL Insomnia 10/08/20 14:00 11/07/20 13:59 10/08/20 23:45 Vancomycin HCl 300 ml @ 150 mls/hr Q12H IVPB 10/08/20 12:30 10/13/20 12:29 10/09/20 11:36 Vancomycin HCl (Vanco pharmacy to dose) 1 ea DAILY PRN MISC Per rx protocol 10/06/20 19:15 11/05/20 19:14 Zinc Sulfate (Zinc Sulfate) 220 mg DAILY ORAL 10/09/20 09:00 10/19/20 08:59 10/09/20 08:36 Allergies: Coded Allergies: No Known Allergies (Unverified , 06/07/12) Subjective now plan for 6 weeks of IV abx for left hip/ischial osteomyelitis on imaging Objective Last Vital Signs Date Time Temp Pulse Resp B/P (MAP) Pulse Ox O2 Delivery O2 Flow Rate FiO2 10/09/20 09:00 Room Air 10/09/20 08:00 97.9 83 17 120/66 (84) 99 Laboratory Tests Test 10/09/20 09:30 White Blood Count 7.5 K/UL (4.8-10.8) Red Blood Count 3.75 M/UL (4.70-6.10) L Hemoglobin 10.3 G/DL (14.2-18.0) L Hematocrit 31.2 % (42.0-52.0) L Mean Corpuscular Volume 83 FL (80-99) Mean Corpuscular Hemoglobin 27.4 PG (27.0-31.0) Mean Corpuscular Hemoglobin Concent 32.9 G/DL (32.0-36.0) Red Cell Distribution Width 12.6 % (11.6-14.8) Platelet Count 528 K/UL (150-450) H Mean Platelet Volume 6.1 FL (6.5-10.1) L Neutrophils (%) (Auto) 62.6 % (45.0-75.0) Lymphocytes (%) (Auto) 26.8 % (20.0-45.0) Monocytes (%) (Auto) 7.3 % (1.0-10.0) Eosinophils (%) (Auto) 2.4 % (0.0-3.0) Basophils (%) (Auto) 0.9 % (0.0-2.0) Sodium Level 139 MMOL/L (136-145) Potassium Level 3.7 MMOL/L (3.5-5.1) Chloride Level 106 MMOL/L (98-107) Carbon Dioxide Level 24 MMOL/L (21-32) Anion Gap 9 mmol/L (5-15) Blood Urea Nitrogen 8 mg/dL (7-18) Creatinine 0.8 MG/DL (0.55-1.30) Estimat Glomerular Filtration Rate > 60 mL/min (>60) Glucose Level 77 MG/DL (74-106) Calcium Level 9.1 MG/DL (8.5-10.1) Microbiology Date/Time Source Procedure Growth Status 10/06/20 22:45 Nasopharynx SARS-CoV-2 RdRp Gene Assay - Final Complete 10/06/20 16:15 Anus Gram Stain - Final Complete 10/06/20 16:15 Wound Culture - Final Strep Agalactiae Group B Diphtheroids Complete 10/06/20 16:15 Blood Blood Culture - Preliminary NO GROWTH AFTER 48 HOURS Resulted 10/06/20 16:00 Blood Blood Culture - Preliminary NO GROWTH AFTER 48 HOURS Resulted Intake and Output 10/08/20 10/09/20 19:00 07:00 Intake Total 520 ml Output Total 1300 ml Balance -780 ml Intake IV Total 520 ml Output Urine Total 1300 ml Objective eneral appearance: alert, cooperative, no distress, appears stated age Head: Normocephalic, without obvious abnormality, atraumatic Eyes: conjunctivae/corneas clear. PERRL, EOM's intact. Fundi benign Throat: Lips, mucosa, and tongue normal. Teeth and gums normal Neck: supple, symmetrical, trachea midline, no adenopathy, thyroid: not enlarged, symmetric, no tenderness/mass/nodules, no carotid bruit and no JVD Lungs: clear to auscultation bilaterally Heart: regular rate and rhythm, S1, S2 normal, no murmur, click, rub or gallop Abdomen: soft, non-tender. Bowel sounds normal. No masses, no organomegaly Extremities: extremities normal, atraumatic, no cyanosis or edema Pulses: 2+ and symmetric Skin: + pressure ulcer with drainage Neurologic: Grossly normal Assessment/Plan Assessment/Plan #pressure ulcer/wound infection r/o osteo- #Sepsis #paraplegia #neurogenic bladder - admit inpatient - ID eval - general surg eval - continue abx per ID - pain control - resume home med - on oxybutynin time spent 65 min Harmony Khanna M.D. Oct 09, 2020 12:38
--- NOTE | 2020-10-09 13:05 | Surgery Progress Note ---
Surgery Progress Note Subjective Additional Comments pain at night states only dilaudid helps no n/v tolerating diet Objective Last 24 Hour Vital Signs Date Time Temp Pulse Resp B/P (MAP) Pulse Ox O2 Delivery O2 Flow Rate FiO2 10/09/20 09:00 Room Air 10/09/20 08:00 97.9 83 17 120/66 (84) 99 10/09/20 04:00 98.1 79 17 114/74 (87) 95 10/09/20 00:00 97.8 94 17 119/75 (90) 96 10/08/20 21:00 Room Air 10/08/20 20:00 98.5 99 17 127/67 (87) 99 10/08/20 17:00 97.3 102 20 147/80 (102) 98 10/08/20 16:00 98.1 89 20 131/70 (90) 98 10/08/20 14:00 85 I&O Intake and Output 10/08/20 10/09/20 19:00 07:00 Intake Total 520 ml Output Total 1300 ml Balance -780 ml Intake IV Total 520 ml Output Urine Total 1300 ml Dressing: saturated Cardiovascular: RSR Respiratory: clear Abdomen: soft, flat, non-tender, present bowel sounds Extremities: no edema, no tenderness, no cyanosis Laboratory Tests Test 10/09/20 09:30 White Blood Count 7.5 K/UL (4.8-10.8) Red Blood Count 3.75 M/UL (4.70-6.10) L Hemoglobin 10.3 G/DL (14.2-18.0) L Hematocrit 31.2 % (42.0-52.0) L Mean Corpuscular Volume 83 FL (80-99) Mean Corpuscular Hemoglobin 27.4 PG (27.0-31.0) Mean Corpuscular Hemoglobin Concent 32.9 G/DL (32.0-36.0) Red Cell Distribution Width 12.6 % (11.6-14.8) Platelet Count 528 K/UL (150-450) H Mean Platelet Volume 6.1 FL (6.5-10.1) L Neutrophils (%) (Auto) 62.6 % (45.0-75.0) Lymphocytes (%) (Auto) 26.8 % (20.0-45.0) Monocytes (%) (Auto) 7.3 % (1.0-10.0) Eosinophils (%) (Auto) 2.4 % (0.0-3.0) Basophils (%) (Auto) 0.9 % (0.0-2.0) Sodium Level 139 MMOL/L (136-145) Potassium Level 3.7 MMOL/L (3.5-5.1) Chloride Level 106 MMOL/L (98-107) Carbon Dioxide Level 24 MMOL/L (21-32) Anion Gap 9 mmol/L (5-15) Blood Urea Nitrogen 8 mg/dL (7-18) Creatinine 0.8 MG/DL (0.55-1.30) Estimat Glomerular Filtration Rate > 60 mL/min (>60) Glucose Level 77 MG/DL (74-106) Calcium Level 9.1 MG/DL (8.5-10.1) Plan Problems: (1) Sepsis (2) Abscess (3) Abscess (4) Abscess (5) Anemia (6) Cellulitis (7) Hyponatremia (8) Nephrolithiasis (9) Rodriguez cyst (10) Viral syndrome (11) UTI (urinary tract infection) (12) Osteomyelitis Assessment & Plan: 29M with chronic decubitus ulcers now with osteo and declining. local wound care provided by team and patient evaluated in detail care plan discussed with patients outpatient wound care provider notes reviewed please refer to recent outpatient care eval note for details appreciate Dr. Quiros input cont with local care iv abx planned will need a picc ID input appreciated will cont with local wound care Extensive edema is seen within the medial thigh adductor musculature on the left, extending beyond the image volume. There is also extensive edema within the perineum, left greater than right as well as within the left gluteal musculature. Edema is seen inferior to the ischium within the perineum, markedly increased s ting prior exam. Areas of flow void likely represent gas, not evident previously. These appear to communicate with the skin surface likely indicative of a deep penetrating ulcer. Edema is different in distribution since the prior study; on the previous exam this was largely confined to the subcutaneous fat, currently mostly spares the subcutaneous fat and is predominantly within the muscle There is considerable marrow edema within the left ischium, manifested by increased STIR and decreased T1 signal. This is a new finding since previous exam. The right ischium is not well-demonstrated, somewhat hypoplastic, as previously, but no definite osseous signal abnormality in this region is demonstrated. Prominent T2 hyperintense left inguinal and left distal iliac chain lymph nodes are again demonstrated. The largest left iliac chain node appears somewhat larger than the prior exam. No definite evidence of soft tissue abscess. Previously demonstrated rectal fecal distention is not evident currently Impression: Interim marked overall worsening of inflammatory changes of the left perineum, left buttock musculature, and left adductor musculature, likely representing cellulitis/myositis given stated clinical history. Evidence of deep penetrating ulcer in the perineum extending to the ischium. Signal abnormality within the left ischium likely indicates osteomyelitis. Left inguinal and iliac chain lymphadenopathy, likely reactive given the above DAILY ESTIMATED NEEDS: Needs based on Paraplegia, wound 68kg 28-33 kcals/kg 8865-8703 total kcals 1.5-2 g protein/kg 102-136 g total protein 25-30 mL/kg 8012-1372 total fluid mLs NUTRITION DIAGNOSIS: Increased kcal and pro needs r/t wound healing as evidenced by pt is wheelchair bound, paraplegic, admitted w/ left hip and ischial osteomyelitis. 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
--- NOTE | 2020-10-09 14:37 | NUR ---
Range EcologistCandy Dipper Hand SI: Sepsis, Wound infection, osteomyelitis, failed outpatient treatment T 97.9, HR 88, RR 20, BP 122/72, O2 sat 99% IS: Vancomycin IV Q 12 h Zosyn IV q 6 h Ditropan PO HS Vit C BID PO Heparin SQ BID Med Surg Status
[2020-10-09 16:00] VITALS: BP 122/63
--- NOTE | 2020-10-09 19:23 | NUR ---
NURSE HAND-OFF: Important Events on Shift:[PICC placement tomorrow, ABX given] Patient Status: [stable] Diet: [reg] Pending Orders: [] Pending Results/Labs:[] Pending MD notification:[] Latest Vital Signs: Temperature 98.1 , Pulse 88 , B/P 122 /63 , Respiratory Rate 20 , O2 SAT 99 , Room Air, O2 Flow Rate . Vital Sign Comment: [strable] Latest Vega Fall Score: 35 Fall Risk: Medium Risk Safety Measures: Call light Within Reach, Bed Alarm Zone 1, Side Rails Side Rails x2, Bed position Low and Locked. Fall Precautions: Patient Fall Education Report given to [NARDA Rueda].
--- NOTE | 2020-10-09 19:55 | NUR ---
NURSE NOTES: Patient received in bed,awake, c/o pain. Medicated patient for pain. Offered morphine but patient insist on getting dilaudid. Stated morphine did not relieve his pain last night.
[2020-10-09 20:00] VITALS: BP 120/79
[2020-10-09] MEDS: Oxybutynin 5mg tab ORAL SCH (20:34)
[2020-10-09] MEDS: TraZODone 50mg tab ORAL PRN (22:43)
--- NOTE | 2020-10-09 23:04 | NUR ---
NURSE NOTES: Patient IV on left hand infiltrated. IV access removed. Morphine 2mg wasted and witnessed. New morphine taken from [facility] and given on a different IV line.
[2020-10-10] VITALS (7 sets, daily range): BP systolic 105–138; BP diastolic 55–78
[2020-10-10] MEDS: VANCOMYCIN IVPB SCH (00:03)
--- NOTE | 2020-10-10 04:15 | NUR ---
NURSE NOTES: Patient was able to safely and independently transfer from bed to own wheelchair and to the toilet. Patient passed gas and had small amount of stool. Patient was able to return to bed independently with RN supervision. Linen changed and dressing changed on left buttock. Tolerated well. Bed zero'ed while patient is on the toilet for accurate weights.
[2020-10-10] MEDS: HYDROmorphone 1mg/ml Carpuject IVP PRN ×4 (04:20→21:47)
[2020-10-10] MEDS: Piperacillin/Tazobactam 3.375 GM in D5W 110 ML IVPB SCH ×2 (05:37→11:29)
--- NOTE | 2020-10-10 07:19 | NUR ---
NURSE NOTES: Report received from Mohit RN, rounds made. Patient AOx4, calm. Respirations even/unlabored on RA. LAC saline lock, intact, patient reports leaking, will flush and recheck. Denies need for pain medication at this time. P200 mattress [address], left buttocks dressing CDI, will provide wound care as ordered. Call light in reach, bed in lowest position, will continue to monitor.
--- NOTE | 2020-10-10 07:22 | NUR ---
NURSE HAND-OFF: Important Events on Shift:[pain management, dressing change, small BM] Patient Status: [stable] Diet: [Regular] Pending Orders: [for PICC placement] Pending Results/Labs:[] Pending MD notification:[] Latest Vital Signs: Temperature 98.0 , Pulse 99 , B/P 116 /70 , Respiratory Rate 16 , O2 SAT 100 , Room Air, O2 Flow Rate . Vital Sign Comment: [] Latest Vega Fall Score: 35 Fall Risk: Medium Risk Safety Measures: Call light Within Reach, Bed Alarm Zone 1, Side Rails Side Rails x2, Bed position Low and Locked. Fall Precautions: Patient Fall Education Report given to [Morena Granda RN].
[2020-10-10 08:31] LABS: BASOPHILS % (AUTO) 0.8 % (0.0-2.0); EOSINOPHILS % (AUTO) 3.6 % (0.0-3.0); HEMATOCRIT 34.1 % (42.0-52.0); LYMPHOCYTES % (AUTO) 32.7 % (20.0-45.0); MEAN CORPUSCULAR VOLUME 83 FL (80-99); MONOCYTES % (AUTO) 7.2 % (1.0-10.0); NEUTROPHILS % (AUTO) 55.7 % (45.0-75.0); PLATELET COUNT 594 K/UL (150-450); RED CELL DISTRIBUTION WIDTH 12.7 % (11.6-14.8); WHITE BLOOD COUNT 8.9 K/UL (4.8-10.8)
[2020-10-10] MEDS: Zinc Sulfate 220mg ORAL SCH (08:33)
[2020-10-10] MEDS: Heparin 5000 units/ml inj SUBQ SCH ×3 (08:33→21:31)
[2020-10-10] MEDS: Ascorbic Acid 500mg tab ORAL SCH ×2 (08:33→17:46)
[2020-10-10 08:44] LABS: ALANINE AMINOTRANSFERASE 32 U/L (12-78); ALBUMIN 2.5 G/DL (3.4-5.0); ALBUMIN/GLOBULIN RATIO 0.5 (1.0-2.7); ALKALINE PHOSPHATASE 80 U/L (46-116); ANION GAP 7 mmol/L (5-15); ASPARTATE AMINO TRANSFERASE 11 U/L (15-37); BILIRUBIN,TOTAL 0.5 MG/DL (0.2-1.0); BLOOD UREA NITROGEN 10 mg/dL (7-18); CALCIUM 9.5 MG/DL (8.5-10.1); CARBON DIOXIDE 26 MMOL/L (21-32); CHLORIDE 106 MMOL/L (98-107); CREATININE 0.8 MG/DL (0.55-1.30); SODIUM 139 MMOL/L (136-145)
[2020-10-10] MEDS ORDERED: Lidocaine 1% Plain 30 ml INJ PRN (09:00)
[2020-10-10] MEDS ORDERED: Heparin1,000 units/500ml Premix(Conc:2 units/ml) IV PRN (09:00)
--- NOTE | 2020-10-10 09:04 | NUR ---
NURSE NOTES: Heparin 5000 SQ held this AM for PICC placement procedure today.
--- NOTE | 2020-10-10 09:41 | NUR ---
RD ASSESSMENT & RECOMMENDATIONS SEE CARE ACTIVITY FOR COMPLETE ASSESSMENT DAILY ESTIMATED NEEDS: Needs based on Paraplegia, wound 68kg 28-33 kcals/kg 9177-8688 total kcals 1.5-2 g protein/kg 102-136 g total protein 25-30 mL/kg 6543-1445 total fluid mLs NUTRITION DIAGNOSIS: Increased kcal and pro needs r/t wound healing as evidenced by pt is wheelchair bound, paraplegic, admitted w/ left hip and ischial osteomyelitis. 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
--- NOTE | 2020-10-10 12:20 | Internal Med Progress Note ---
Subjective Physician Name Harmony Khanna Attending Physician Harmony Khanna M.D. Current Medications Medications (Trade) Dose Ordered Sig/Evelyn Route PRN Reason Start Time Stop Time Status Last Admin Dose Admin Acetaminophen (Tylenol) 650 mg Q6H PRN ORAL Mild Pain (Pain Scale 1-3) 10/07/20 03:30 11/06/20 03:29 Acetaminophen/ Hydrocodone Bitart (Howe 5/325) 1 tab Q6H PRN ORAL Moderate Pain (Pain Scale 4-6) 10/07/20 03:30 10/14/20 03:29 Ascorbic Acid (Vitamin C) 500 mg TWICE A DAY ORAL 10/08/20 18:00 11/07/20 17:59 10/10/20 08:33 Gabapentin (Neurontin) 300 mg BID ORAL 10/07/20 09:00 11/06/20 08:59 10/10/20 08:33 Heparin Sodium (Porcine) (Heparin 5000 units/ml) 5,000 units EVERY 12 HOURS SUBQ 10/07/20 09:00 11/21/20 08:59 10/09/20 20:34 Heparin Sodium/ Sodium Chloride (Heparin 1000 units/500ml Premix) 1,000 unit ONCE PRN IV radiology procedure 10/10/20 09:00 10/12/20 08:59 Hydromorphone HCl (Dilaudid) 1 mg Q3H PRN IVP breakthrough pain 10/07/20 18:30 10/14/20 18:29 10/10/20 11:09 Lidocaine HCl (Xylocaine 1% 30ml) 30 ml ONCE PRN INJ radiology procedure 10/10/20 09:00 10/12/20 08:59 Morphine Sulfate (Morphine Sulfate) 2 mg Q4H PRN IVP Severe Pain (Pain Scale 7-10) 10/07/20 03:30 10/14/20 03:29 10/09/20 22:58 Multivitamins (Multivitamins) 1 tab DAILY ORAL 10/09/20 09:00 11/08/20 08:59 10/10/20 08:33 Oxybutynin Chloride (Ditropan) 5 mg QHS ORAL 10/07/20 21:00 11/06/20 20:59 10/09/20 20:34 Piperacillin Sod/ Tazobactam Sod 3.375 gm/Dextrose 110 ml @ 220 mls/hr Q6H IVPB 10/07/20 12:00 10/14/20 11:59 10/10/20 11:29 Tramadol HCl (Ultram) 50 mg QHS PRN ORAL Moderate Breakthru Pain (5-7) 10/07/20 03:30 10/14/20 03:29 10/07/20 09:20 Trazodone HCl (Desyrel) 50 mg HSPRN PRN ORAL Insomnia 10/08/20 14:00 11/07/20 13:59 10/09/20 22:43 Vancomycin HCl 300 ml @ 150 mls/hr Q12H IVPB 10/08/20 12:30 10/13/20 12:29 10/10/20 00:03 Vancomycin HCl ([facility] pharmacy to dose) 1 ea DAILY PRN MISC Per rx protocol 10/06/20 19:15 11/05/20 19:14 Zinc Sulfate (Zinc Sulfate) 220 mg DAILY ORAL 10/09/20 09:00 10/19/20 08:59 10/10/20 08:33 Allergies: Coded Allergies: No Known Allergies (Unverified , 06/07/12) ROS Limited/Unobtainable: No Constitutional: Reports: weakness HEENT: Denies: no symptoms, eye pain, blurred vision, tearing, double vision, ear pain, ear discharge, nose pain, nose congestion, throat pain, throat swelling, mouth pain, mouth swelling, other Cardiovascular: Denies: no symptoms, chest pain, edema, irregular heart rate, lightheadedness, palpitations, syncope, other Respiratory: Denies: no symptoms, cough, orthopnea, shortness of breath, SOB with excertion, SOB at rest, sputum, stridor, wheezing, other Gastrointestinal/Abdominal: Denies: no symptoms, abdomen distended, abdominal pain, black stools, tarry stools, blood in stool, constipated, diarrhea, difficulty swallowing, nausea, poor appetite, poor fluid intake, rectal bleeding, vomiting, other Genitourinary: Denies: no symptoms, burning, discharge, frequency, flank pain, hematuria, incontinence, pain, urgency, other Neurologic/Psychiatric: Denies: no symptoms, anxiety, depressed, emotional prob lems, headache, numbness, paresthesia, pre-existing deficit, seizure, tingling, tremors, weakness, other Subjective now plan for 6 weeks of IV abx for PICCLINE today left hip/ischial osteomyelitis on imaging Objective Last Vital Signs Date Time Temp Pulse Resp B/P (MAP) Pulse Ox O2 Delivery O2 Flow Rate FiO2 10/10/20 08:00 98.2 90 18 130/68 (88) 96 10/09/20 21:00 Room Air Laboratory Tests Test 10/10/20 07:15 10/10/20 11:39 White Blood Count 8.9 K/UL (4.8-10.8) Red Blood Count 4.10 M/UL (4.70-6.10) L Hemoglobin 11.0 G/DL (14.2-18.0) L Hematocrit 34.1 % (42.0-52.0) L Mean Corpuscular Volume 83 FL (80-99) Mean Corpuscular Hemoglobin 26.7 PG (27.0-31.0) L Mean Corpuscular Hemoglobin Concent 32.2 G/DL (32.0-36.0) Red Cell Distribution Width 12.7 % (11.6-14.8) Platelet Count 594 K/UL (150-450) H Mean Platelet Volume 6.3 FL (6.5-10.1) L Neutrophils (%) (Auto) 55.7 % (45.0-75.0) Lymphocytes (%) (Auto) 32.7 % (20.0-45.0) Monocytes (%) (Auto) 7.2 % (1.0-10.0) Eosinophils (%) (Auto) 3.6 % (0.0-3.0) H Basophils (%) (Auto) 0.8 % (0.0-2.0) Erythrocyte Sedimentation Rate 73 MM/HR (0-15) H Sodium Level 139 MMOL/L (136-145) Potassium Level 5.0 MMOL/L (3.5-5.1) Chloride Level 106 MMOL/L (98-107) Carbon Dioxide Level 26 MMOL/L (21-32) Anion Gap 7 mmol/L (5-15) Blood Urea Nitrogen 10 mg/dL (7-18) Creatinine 0.8 MG/DL (0.55-1.30) Estimat Glomerular Filtration Rate > 60 mL/min (>60) Glucose Level 88 MG/DL (74-106) Calcium Level 9.5 MG/DL (8.5-10.1) Total Bilirubin 0.5 MG/DL (0.2-1.0) Aspartate Amino Transf (AST/SGOT) 11 U/L (15-37) L Alanine Aminotransferase (ALT/SGPT) 32 U/L (12-78) Alkaline Phosphatase 80 U/L (46-116) C-Reactive Protein, Quantitative 7.4 mg/dL (0.00-0.90) H Total Protein 7.2 G/DL (6.4-8.2) Albumin 2.5 G/DL (3.4-5.0) L Globulin 4.7 g/dL Albumin/Globulin Ratio 0.5 (1.0-2.7) L Vancomycin Level Trough Pending Intake and Output 10/09/20 10/10/20 19:00 07:00 Intake Total 990 ml Output Total 600 ml Balance 390 ml Intake IV Total 630 ml Other 360 ml Output Urine Total 600 ml # Voids 3 # Bowel Movements 1 Objective eneral appearance: alert, cooperative, no distress, appears stated age Head: Normocephalic, without obvious abnormality, atraumatic Eyes: conjunctivae/corneas clear. PERRL, EOM's intact. Fundi benign Throat: Lips, mucosa, and tongue normal. Teeth and gums normal Neck: supple, symmetrical, trachea midline, no adenopathy, thyroid: not enlarged, symmetric, no tenderness/mass/nodules, no carotid bruit and no JVD Lungs: clear to auscultation bilaterally Heart: regular rate and rhythm, S1, S2 normal, no murmur, click, rub or gallop Abdomen: soft, non-tender. Bowel sounds normal. No masses, no organomegaly Extremities: extremities normal, atraumatic, no cyanosis or edema Pulses: 2+ and symmetric Skin: + pressure ulcer with drainage Neurologic: Grossly normal Assessment/Plan Assessment/Plan #pressure ulcer/wound infection r/o osteo- #Sepsis #paraplegia #neurogenic bladder - piccline placement today - ID eval - general surg eval - continue abx per ID - pain control - resume home med - on oxybutynin time spent 35 min Harmony Khanna M.D. Oct 10, 2020 12:20
[2020-10-10] MEDS ORDERED: Vancomycin 1gm/D5W 275ml IVPB SCH ×4 (14:00→18:00)
--- NOTE | 2020-10-10 15:05 | NUR ---
CASE MANAGEMENT:REVIEW SI;SEPSIS. OSTEOMYELITIS. 98.2 99 20 105/55 96% ON RA PLT+ 594 CRP+ 7.4 ALB- 2.5 IS;VANCOMYCIN IV Q8 ZINC SULFATE PO QD DILAUDID IV Q3 PRN ZOSYN IV Q6 HEPARIN SQ Q12 MED SURG STATUS DCP;FROM HOME
--- NOTE | 2020-10-10 15:52 | Pre-Procedure Note/Attestation ---
Pre-Procedure Note/Attestation Complete Prior to Procedure Planned Procedure: not applicable Procedure Narrative: PICC Indications for Procedure Pre-Operative Diagnosis: needs IV access Attestation I attest that I discussed the nature of the procedure; its benefits; risks and complications; and alternatives (and the risks and benefits of such alternatives), prior to the procedure, with the patient (or the patient's legal patient intake representative). I attest that, if there was a reasonable possibility of needing a blood holm sfusion, the patient (or the patient's legal patient intake representative) was given the [facility] standardized written summary, pursuant to the Sukhdeep Jalyn Blood Safety Act ([place] Health and Safety Code # 1645, as amended). I attest that I re-evaluated the patient just prior to the surgery and that there has been no change in the patient's H&P, except as documented below: Reese Rankin MD Oct 10, 2020 15:52
--- NOTE | 2020-10-10 15:52 | Brief Operative Note ---
Immediate Post Operative Note Operative Note Pre-op Diagnosis: needs IV access Procedure: PICC Post-op Diagnosis: same as pre-op Surgeon: Mika Bonilla Anesthesia: local Specimen: none Complications: none Fluids: none Implant(s) used?: No Reese Bonilla MD Oct 10, 2020 15:52
--- NOTE | 2020-10-10 15:59 | NUR ---
NURSE NOTES: Patient sent down to radiology for PICC placement at 1505 via bed on RA,in stable condition. Patient returned at this time, LEWIS double lumen PICC, applied hubs, flushed, patent, dressing CDI, measured 30.5 cm circumference, 12 cm from insertion site to end (prior to applying hubs).
--- NOTE | 2020-10-10 16:29 | Surgery Progress Note ---
Surgery Progress Note Subjective Additional Comments picc today abx as per ID doing okay Objective Last 24 Hour Vital Signs Date Time Temp Pulse Resp B/P (MAP) Pulse Ox O2 Delivery O2 Flow Rate FiO2 10/10/20 12:00 98.1 88 18 105/55 (72) 97 10/10/20 09:00 Room Air 10/10/20 08:00 98.2 90 18 130/68 (88) 96 10/10/20 04:00 97.5 99 16 116/70 (85) 100 10/10/20 00:00 98.0 88 20 138/74 (95) 99 10/09/20 21:00 Room Air 10/09/20 20:00 98.3 88 20 120/79 (93) 99 I&O Intake and Output 10/09/20 10/10/20 19:00 07:00 Intake Total 990 ml Output Total 600 ml Balance 390 ml Intake IV Total 630 ml Other 360 ml Output Urine Total 600 ml # Voids 3 # Bowel Movements 1 Dressing: saturated, other Wound: other Cardiovascular: RSR Respiratory: decreased breath sounds Abdomen: soft, non-tender, present bowel sounds, non-distended Extremities: no edema, no tenderness, no cyanosis Laboratory Tests Test 10/10/20 07:15 10/10/20 11:39 White Blood Count 8.9 K/UL (4.8-10.8) Red Blood Count 4.10 M/UL (4.70-6.10) L Hemoglobin 11.0 G/DL (14.2-18.0) L Hematocrit 34.1 % (42.0-52.0) L Mean Corpuscular Volume 83 FL (80-99) Mean Corpuscular Hemoglobin 26.7 PG (27.0-31.0) L Mean Corpuscular Hemoglobin Concent 32.2 G/DL (32.0-36.0) Red Cell Distribution Width 12.7 % (11.6-14.8) Platelet Count 594 K/UL (150-450) H Mean Platelet Volume 6.3 FL (6.5-10.1) L Neutrophils (%) (Auto) 55.7 % (45.0-75.0) Lymphocytes (%) (Auto) 32.7 % (20.0-45.0) Monocytes (%) (Auto) 7.2 % (1.0-10.0) Eosinophils (%) (Auto) 3.6 % (0.0-3.0) H Basophils (%) (Auto) 0.8 % (0.0-2.0) Erythrocyte Sedimentation Rate 73 MM/HR (0-15) H Sodium Level 139 MMOL/L (136-145) Potassium Level 5.0 MMOL/L (3.5-5.1) Chloride Level 106 MMOL/L (98-107) Carbon Dioxide Level 26 MMOL/L (21-32) Anion Gap 7 mmol/L (5-15) Blood Urea Nitrogen 10 mg/dL (7-18) Creatinine 0.8 MG/DL (0.55-1.30) Estimat Glomerular Filtration Rate > 60 mL/min (>60) Glucose Level 88 MG/DL (74-106) Calcium Level 9.5 MG/DL (8.5-10.1) Total Bilirubin 0.5 MG/DL (0.2-1.0) Aspartate Amino Transf (AST/SGOT) 11 U/L (15-37) L Alanine Aminotransferase (ALT/SGPT) 32 U/L (12-78) Alkaline Phosphatase 80 U/L (46-116) C-Reactive Protein, Quantitative 7.4 mg/dL (0.00-0.90) H Total Protein 7.2 G/DL (6.4-8.2) Albumin 2.5 G/DL (3.4-5.0) L Globulin 4.7 g/dL Albumin/Globulin Ratio 0.5 (1.0-2.7) L Vancomycin Level Trough 11.9 ug/mL (5.0-12.0) Plan Problems: (1) Sepsis (2) Abscess (3) Abscess (4) Abscess (5) Anemia (6) Cellulitis (7) Hyponatremia (8) Nephrolithiasis (9) Rodriguez cyst (10) Viral syndrome (11) UTI (urinary tract infection) (12) Osteomyelitis Assessment & Plan: 29M with chronic decubitus ulcers now with osteo and declining. local wound care provided by team and patient evaluated in detail care plan discussed with patients outpatient wound care provider notes reviewed please refer to recent outpatient care eval note for details appreciate Dr. Quiros input cont with local care iv abx planned will need a picc ID input appreciated will cont with local wound care Extensive edema is seen within the medial thigh adductor musculature on the left, extending beyond the image volume. There is also extensive edema within the perineum, left greater than right as well as within the left gluteal musculature. Edema is seen inferior to the ischium within the perineum, markedly increased since prior exam. Areas of flow void likely represent gas, not evident previously. These appear to communicate with the skin surface likely indicative of a deep penetrating ulcer. Edema is different in distribution since the prior study; on the previous exam this was largely confined to the subcutaneous fat, currently mostly spares the subcutaneous fat and is predominantly within the muscle There is considerable marrow edema within the left ischium, manifested by increased STIR and decreased T1 signal. This is a new finding since previous exam. The right ischium is not well-demonstrated, somewhat hypoplastic, as previously, but no definite osseous signal abnormality in this region is demonstrated. Prominent T2 hyperintense left inguinal and left distal iliac chain lymph nodes are again demonstrated. The largest left iliac chain node appears somewhat larger than the prior exam. No definite evidence of soft tissue abscess. Previously demonstrated rectal fecal distention is not evident currently Impression: Interim marked overall worsening of inflammatory changes of the left perineum, left buttock musculature, and left adductor musculature, likely representing cellulitis/myositis given stated clinical history. Evidence of deep penetrating ulcer in the perineum extending to the ischium. Signal abnormality within the left ischium likely indicates osteomyelitis. Left inguinal and iliac chain lymphadenopathy, likely reactive given the above DAILY ESTIMATED NEEDS: Needs based on Paraplegia, wound 68kg 28-33 kcals/kg 8262-5875 total kcals 1.5-2 g protein/kg 102-136 g total protein 25-30 mL/kg 2834-5659 total fluid mLs NUTRITION DIAGNOSIS: Increased kcal and pro needs r/t wound healing as evidenced by pt is wheelchair bound, paraplegic, admitted w/ left hip and ischial osteomyelitis. 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
--- NOTE | 2020-10-10 16:49 | Infectious Diseases Prog Note ---
Assessment/Plan Assessment/Plan ASSESSMENT AND PLAN: 1. 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 The patient has history of asthma. 3. Paraplegia. 4. Spinal cord injury. 5. History of back surgery. 6. Paraplegia and weakness. 7. COVID testing four weeks ago was negative. Currently, he has no fevers. Chest x-ray is negative. 8. Anemia. 9. Continue treatment per primary consultants. 10. Orders were noted and entered. 11. No known drug allergies. 12. Social history is negative. 13. Family is noncontributory. 14. MAR is noted. 15. Case was discussed with RN. Subjective Constitutional: Denies: fever, fatigue Respiratory: Denies: shortness of breath Cardiovascular: Denies: chest pain Gastrointestinal/Abdominal: Denies: nausea, vomiting, diarrhea Genitourinary: Reports: other - no kelley ; Denies: dysuria Neurologic: Denies: headache Psychiatric: Denies: depression Skin: Denies: rash Hematologic: Denies: bleeding Musculoskeletal: Denies: pain Allergies: Coded Allergies: No Known Allergies (Unverified , 06/07/12) Objective Last 24 Hour Vital Signs Date Time Temp Pulse Resp B/P (MAP) Pulse Ox O2 Delivery O2 Flow Rate FiO2 10/10/20 12:00 98.1 88 18 105/55 (72) 97 10/10/20 09:00 Room Air 10/10/20 08:00 98.2 90 18 130/68 (88) 96 10/10/20 04:00 97.5 99 16 116/70 (85) 100 10/10/20 00:00 98.0 88 20 138/74 (95) 99 10/09/20 21:00 Room Air 10/09/20 20:00 98.3 88 20 120/79 (93) 99 Height (Feet): 6 Height (Inches): 4.00 Weight (Pounds): 150 General Appearance: no acute distress HEENT: normocephalic, atraumatic, anicteric Respiratory/Chest: lungs clear, normal breath sounds, no respiratory distress, no accessory muscle use Cardiovascular: normal rate, regular rhythm, no gallop/murmur, no JVD Abdomen: normal bowel sounds, soft, non tender, no organomegaly, non distended Genitourinary: other - no kelley Extremities: no cyanosis Skin: no rash Neurologic/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 Left inferior gluteal decubitus ulcer with prominent fat stranding. The ulceration extends to the level of the left ischium. 2. Small amount of lucency in the left ischial bone is concerning for osteomyelitis. 3. Mild prominence of the bladder wall is nonspecific. Please correlate with urinalysis if concerned for cystitis. 4. Nonspecific mildly prominent mesenteric and retroperitoneal lymph nodes which may be reactive. Nonspecific prominent left inguinal and iliac chain lymph nodes. These are increased compared to prior exam. Outpatient MRI noted - report noted, c/w osteomyelitis Procedure: XRAY Chest 1v Indication: Shortness of breath Technique: One view of the chest Comparison: 10/17/2017 Findings: Lungs and pleural spaces are clear. Heart size is normal. No significant change Impression: No acute process Microbiology Date/Time Source Procedure Growth Status 10/06/20 22:45 Nasopharynx SARS-CoV-2 RdRp Gene Assay - Final Complete 10/06/20 16:15 Anus Gram Stain - Final Complete 10/06/20 16:15 Wound Culture - Final Strep Agalactiae Group B Diphtheroids Complete 10/06/20 16:15 Blood Blood Culture - Preliminary NO GROWTH AFTER 72 HOURS Resulted Laboratory Tests Test 10/10/20 07:15 10/10/20 11:39 White Blood Count 8.9 K/UL (4.8-10.8) Red Blood Count 4.10 M/UL (4.70-6.10) L Hemoglobin 11.0 G/DL (14.2-18.0) L Hematocrit 34.1 % (42.0-52.0) L Mean Corpuscular Volume 83 FL (80-99) Mean Corpuscular Hemoglobin 26.7 PG (27.0-31.0) L Mean Corpuscular Hemoglobin Concent 32.2 G/DL (32.0-36.0) Red Cell Distribution Width 12.7 % (11.6-14.8) Platelet Count 594 K/UL (150-450) H Mean Platelet Volume 6.3 FL (6.5-10.1) L Neutrophils (%) (Auto) 55.7 % (45.0-75.0) Lymphocytes (%) (Auto) 32.7 % (20.0-45.0) Monocytes (%) (Auto) 7.2 % (1.0-10.0) Eosinophils (%) (Auto) 3.6 % (0.0-3.0) H Basophils (%) (Auto) 0.8 % (0.0-2.0) Erythrocyte Sedimentation Rate 73 MM/HR (0-15) H Sodium Level 139 MMOL/L (136-145) Potassium Level 5.0 MMOL/L (3.5-5.1) Chloride Level 106 MMOL/L (98-107) Carbon Dioxide Level 26 MMOL/L (21-32) Anion Gap 7 mmol/L (5-15) Blood Urea Nitrogen 10 mg/dL (7-18) Creatinine 0.8 MG/DL (0.55-1.30) Estimat Glomerular Filtration Rate > 60 mL/min (>60) Glucose Level 88 MG/DL (74-106) Calcium Level 9.5 MG/DL (8.5-10.1) Total Bilirubin 0.5 MG/DL (0.2-1.0) Aspartate Amino Transf (AST/SGOT) 11 U/L (15-37) L Alanine Aminotransferase (ALT/SGPT) 32 U/L (12-78) Alkaline Phosphatase 80 U/L (46-116) C-Reactive Protein, Quantitative 7.4 mg/dL (0.00-0.90) H Total Protein 7.2 G/DL (6.4-8.2) Albumin 2.5 G/DL (3.4-5.0) L Globulin 4.7 g/dL Albumin/Globulin Ratio 0.5 (1.0-2.7) L Vancomycin Level Trough 11.9 ug/mL (5.0-12.0) Current Medications Medications (Trade) Dose Ordered Sig/Evelyn Route PRN Reason Start Time Stop Time Status Last Admin Dose Admin Acetaminophen (Tylenol) 650 mg Q6H PRN ORAL Mild Pain (Pain Scale 1-3) 10/07/20 03:30 11/06/20 03:29 Acetaminophen/ Hydrocodone Bitart ([place] 5/325) 1 tab Q6H PRN ORAL Moderate Pain (Pain Scale 4-6) 10/07/20 03:30 10/14/20 03:29 Ascorbic Acid (Vitamin C) 500 mg TWICE A DAY ORAL 10/08/20 18:00 11/07/20 17:59 10/10/20 08:33 Gabapentin (Neurontin) 300 mg BID ORAL 10/07/20 09:00 11/06/20 08:59 10/10/20 08:33 Heparin Sodium (Porcine) (Heparin 5000 units/ml) 5,000 units EVERY 12 HOURS SUBQ 10/07/20 09:00 11/21/20 08:59 10/09/20 20:34 Heparin Sodium/ Sodium Chloride (Heparin 1000 units/500ml Premix) 1,000 unit ONCE PRN IV radiology procedure 10/10/20 09:00 10/12/20 08:59 Hydromorphone HCl (Dilaudid) 1 mg Q3H PRN IVP breakthrough pain 10/07/20 18:30 10/14/20 18:29 10/10/20 11:09 Lidocaine HCl (Xylocaine 1% 30ml) 30 ml ONCE PRN INJ radiology procedure 10/10/20 09:00 10/12/20 08:59 Morphine Sulfate (Morphine Sulfate) 2 mg Q4H PRN IVP Severe Pain (Pain Scale 7-10) 10/07/20 03:30 10/14/20 03:29 10/09/20 22:58 Multivitamins (Multivitamins) 1 tab DAILY ORAL 10/09/20 09:00 11/08/20 08:59 10/10/20 08:33 Oxybutynin Chloride (Ditropan) 5 mg QHS ORAL 10/07/20 21:00 11/06/20 20:59 10/09/20 20:34 Piperacillin Sod/ Tazobactam Sod 3.375 gm/Sodium Chloride 110 ml @ 27.5 mls/hr EVERY 8 HOURS IVPB 10/10/20 22:00 10/15/20 21:59 Tramadol HCl (Ultram) 50 mg QHS PRN ORAL Moderate Breakthru Pain (5-7) 10/07/20 03:30 10/14/20 03:29 10/07/20 09:20 Trazodone HCl (Desyrel) 50 mg HSPRN PRN ORAL Insomnia 10/08/20 14:00 11/07/20 13:59 10/09/20 22:43 Vancomycin HCl (Vanco pharmacy to dose) 1 ea DAILY PRN MISC Per rx protocol 10/06/20 19:15 11/05/20 19:14 Vancomycin HCl 1 gm/Dextrose 275 ml @ 183.708 mls/hr Q8HR@0200,1000,1800 IVPB 10/10/20 18:00 10/15/20 17:59 Zinc Sulfate (Zinc Sulfate) 220 mg DAILY ORAL 10/09/20 09:00 10/19/20 08:59 10/10/20 08:33 Cinthia Arroyo MD Oct 10, 2020 16:49
--- NOTE | 2020-10-10 17:15 | NUR ---
RADIOLOGY NOTE: LEFT UPPER EXTREMITY PICC LINE PLACEMENT BY DR. CRISPIN MORGAN AT 1535. FA
--- NOTE | 2020-10-10 17:24 | Diagnostic Imaging Report ---
Indications: Needs long-term IV access Technique: Ultrasound confirms patent compressible left basilic vein. Total sterile technique, including sterile probe cover and sterile gel, hat, mask, sterile gown, large sterile drape, and preparation with 2% chlorhexidine utilized. Local anesthesia with 1% lidocaine. Under real-time ultrasound guidance, puncture basilic vein using 21-gauge needle, documented and archived, passage 0.018 guidewire under direct fluoroscopy, which was used to determine appropriate catheter length, exchange for 4 Lebanese peel-away sheath. 4 Lebanese Bard dual-lumen power PICC cut to 48 cm. It was inserted through the peel-away sheath. Peel-away sheath and guidewire removed. Catheter fixed to the skin. Both catheter ports aspirated and flushed. Patient tolerated procedure well, without immediate complication. Digital radiograph documents satisfactory catheter tip position, at the cavoatrial junction. Total fluoroscopy time 13.5 seconds. Total dose area product 0.3469 mGym2 Total number of images: 1 Impression: Successful placement of left arm PICC under sonographic and fluoroscopic guidance, as described above.
--- NOTE | 2020-10-10 19:15 | NUR ---
NURSE NOTES: Received report from NARDA Berg. Pt is in bed, bed locked and in lowest position, call light within reach. Pt has a LEWIS PICC newly placed today for home abx. Pt stated he will call the nurse when he needs to have a BM. Will continue to monitor.
--- NOTE | 2020-10-10 19:25 | NUR ---
NURSE HAND-OFF: Important Events on Shift:LEWIS PICC (inserted at 1530) Patient Status: stable Diet: regular Pending Orders: labs Pending Results/Labs:CBC CMP 10/11 VT 10/12 0300 Pending MD notification:none Latest Vital Signs: Temperature 99.7 , Pulse 88 , B/P 105 /55 , Respiratory Rate 18 , O2 SAT 97 , Room Air, O2 Flow Rate . Vital Sign Comment: none Latest Vega Fall Score: 35 Fall Risk: Medium Risk Safety Measures: Call light Within Reach, Bed Alarm Zone 1, Side Rails Side Rails x2, Bed position Low and Locked. Fall Precautions: Yellow Socks Door Sign Patient Fall Education Report given to Toby LABOY.
[2020-10-10] MEDS: Vancomycin 1gm/D5W 275ml IVPB SCH ×2 (20:00)
[2020-10-10] MEDS: Dyna-Hex 2% Top Sol 2oz TOPIC SCH (21:28)
[2020-10-10] MEDS: Oxybutynin 5mg tab ORAL SCH (21:28)
[2020-10-10] MEDS ORDERED: Zosyn 3.375gm q8h **Extended infusion IVPB SCH ×2 (22:00)
[2020-10-11] MEDS: HYDROmorphone 1mg/ml Carpuject IVP PRN ×4 (01:39→20:46)
[2020-10-11 04:00] VITALS: BP 106/69
[2020-10-11] MEDS: Vancomycin 1gm/D5W 275ml IVPB SCH ×6 (04:53→20:34)
[2020-10-11 06:29] LABS: BASOPHILS % (AUTO) 0.9 % (0.0-2.0); EOSINOPHILS % (AUTO) 3.4 % (0.0-3.0); HEMATOCRIT 32.1 % (42.0-52.0); HEMOGLOBIN 10.5 G/DL (14.2-18.0); LYMPHOCYTES % (AUTO) 38.7 % (20.0-45.0); MEAN CORPUSCULAR VOLUME 82 FL (80-99); MONOCYTES % (AUTO) 6.2 % (1.0-10.0); NEUTROPHILS % (AUTO) 50.9 % (45.0-75.0); PLATELET COUNT 543 K/UL (150-450); RED BLOOD COUNT 3.89 M/UL (4.70-6.10); RED CELL DISTRIBUTION WIDTH 13.2 % (11.6-14.8); WHITE BLOOD COUNT 9.3 K/UL (4.8-10.8)
[2020-10-11 06:57] LABS: ALANINE AMINOTRANSFERASE 38 U/L (12-78); ALBUMIN 2.4 G/DL (3.4-5.0); ALBUMIN/GLOBULIN RATIO 0.5 (1.0-2.7); ALKALINE PHOSPHATASE 75 U/L (46-116); ANION GAP 10 mmol/L (5-15); ASPARTATE AMINO TRANSFERASE 18 U/L (15-37); BILIRUBIN,TOTAL 0.3 MG/DL (0.2-1.0); BLOOD UREA NITROGEN 11 mg/dL (7-18); CALCIUM 9.1 MG/DL (8.5-10.1); CARBON DIOXIDE 21 MMOL/L (21-32); CHLORIDE 107 MMOL/L (98-107); CREATININE 0.7 MG/DL (0.55-1.30); POTASSIUM 3.9 MMOL/L (3.5-5.1); SODIUM 138 MMOL/L (136-145)
--- NOTE | 2020-10-11 07:25 | NUR ---
NURSE HAND-OFF: Important Events on Shift: pain management :dilaudid x2 Patient Status: sleeping Diet: regular Pending Orders: Pending Results/Labs: Pending MD notification: Latest Vital Signs: Temperature 98.2 , Pulse 84 , B/P 106 /69 , Respiratory Rate 18 , O2 SAT 97 , Room Air, O2 Flow Rate . Vital Sign Comment: VSS Latest Vega Fall Score: 35 Fall Risk: Medium Risk Safety Measures: Call light Within Reach, Bed Alarm Zone 1, Side Rails Side Rails x2, Bed position Low and Locked. Fall Precautions: Yellow Socks Door Sign Patient Fall Education Report given to NARDA Morley.
[2020-10-11 08:00] VITALS: BP 135/90
[2020-10-11] MEDS: Zinc Sulfate 220mg ORAL SCH (08:07)
[2020-10-11] MEDS: Ascorbic Acid 500mg tab ORAL SCH ×2 (08:07→16:40)
[2020-10-11] MEDS: Heparin 5000 units/ml inj SUBQ SCH ×3 (08:08→20:35)
--- NOTE | 2020-10-11 09:37 | NUR ---
*-*DISCHARGE PLANNING*-* PATIENT HAS BEEN REFERRED TO: [facility] P: [phone] S/W JUWAN, WILL CALL BACK AFTER REVIEW.
[2020-10-11 12:00] VITALS: BP 124/71
--- NOTE | 2020-10-11 12:01 | Surgery Progress Note ---
Surgery Progress Note Subjective Symptoms: improved, tolerating diet, voiding well, passing flatus, BM, pain decreased Objective Last 24 Hour Vital Signs Date Time Temp Pulse Resp B/P (MAP) Pulse Ox O2 Delivery O2 Flow Rate FiO2 10/11/20 09:00 Room Air 10/11/20 08:00 97.8 84 18 135/90 (105) 98 10/11/20 04:00 98.2 84 18 106/69 (81) 97 10/10/20 21:00 Room Air 10/10/20 20:00 98.4 87 18 117/78 (91) 100 10/10/20 16:00 99.7 100 18 116/76 (89) 96 10/10/20 16:00 99.7 88 18 105/55 (72) 97 I&O Intake and Output 10/10/20 10/11/20 19:00 07:00 Intake Total 1200 ml 240 ml Output Total 375 ml 650 ml Balance 825 ml -410 ml Intake Oral 1200 ml 240 ml Output Urine Total 375 ml 650 ml # Voids 1 Dressing: saturated Cardiovascular: RSR Respiratory: decreased breath sounds Abdomen: non-tender, present bowel sounds, non-distended Extremities: no edema, no tenderness, no cyanosis Laboratory Tests Test 10/11/20 05:00 White Blood Count 9.3 K/UL (4.8-10.8) Red Blood Count 3.89 M/UL (4.70-6.10) L Hemoglobin 10.5 G/DL (14.2-18.0) L Hematocrit 32.1 % (42.0-52.0) L Mean Corpuscular Volume 82 FL (80-99) Mean Corpuscular Hemoglobin 27.1 PG (27.0-31.0) Mean Corpuscular Hemoglobin Concent 32.8 G/DL (32.0-36.0) Red Cell Distribution Width 13.2 % (11.6-14.8) Platelet Count 543 K/UL (150-450) H Mean Platelet Volume 6.0 FL (6.5-10.1) L Neutrophils (%) (Auto) 50.9 % (45.0-75.0) Lymphocytes (%) (Auto) 38.7 % (20.0-45.0) Monocytes (%) (Auto) 6.2 % (1.0-10.0) Eosinophils (%) (Auto) 3.4 % (0.0-3.0) H Basophils (%) (Auto) 0.9 % (0.0-2.0) Sodium Level 138 MMOL/L (136-145) Potassium Level 3.9 MMOL/L (3.5-5.1) Chloride Level 107 MMOL/L (98-107) Carbon Dioxide Level 21 MMOL/L (21-32) Anion Gap 10 mmol/L (5-15) Blood Urea Nitrogen 11 mg/dL (7-18) Creatinine 0.7 MG/DL (0.55-1.30) Estimat Glomerular Filtration Rate > 60 mL/min (>60) Glucose Level 86 MG/DL (74-106) Calcium Level 9.1 MG/DL (8.5-10.1) Total Bilirubin 0.3 MG/DL (0.2-1.0) Aspartate Amino Transf (AST/SGOT) 18 U/L (15-37) Alanine Aminotransferase (ALT/SGPT) 38 U/L (12-78) Alkaline Phosphatase 75 U/L (46-116) Total Protein 7.7 G/DL (6.4-8.2) Albumin 2.4 G/DL (3.4-5.0) L Globulin 5.3 g/dL Albumin/Globulin Ratio 0.5 (1.0-2.7) L Plan Problems: (1) Sepsis (2) Abscess (3) Abscess (4) Abscess (5) Anemia (6) Cellulitis (7) Hyponatremia (8) Nephrolithiasis (9) Rodriguez cyst (10) Viral syndrome (11) UTI (urinary tract infection) (12) Osteomyelitis Assessment & Plan: 29M with chronic decubitus ulcers now with osteo and declining. local wound care provided by team and patient evaluated in detail care plan discussed with patients outpatient wound care provider notes reviewed please refer to recent outpatient care eval note for details appreciate Dr. Quiros input cont with local care iv abx planned will need a picc ID input appreciated will cont with local wound care Extensive edema is seen within the medial thigh adductor musculature on the left, extending beyond the image volume. There is also extensive edema within the perineum, left greater than right as well as within the left gluteal musculature. Edema is seen inferior to the ischium within the perineum, markedly increased since prior exam. Areas of flow void likely represent gas, not evident previously. These appear to communicate with the skin surface likely indicative of a deep penetrating ulcer. Edema is different in distribution since the prior study; on the previous exam this was largely confined to the subcutaneous fat, currently mostly spares the subcutaneous fat and is predominantly within the muscle There is considerable marrow edema within the left ischium, manifested by increased STIR and decreased T1 signal. This is a new finding since previous exam. The right ischium is not well-demonstrated, somewhat hypoplastic, as previously, but no definite osseous signal abnormality in this region is demonstrated. Prominent T2 hyperintense left inguinal and left distal iliac chain lymph nodes are again demonstrated. The largest left iliac chain node appears somewhat larger than the prior exam. No definite evidence of soft tissue abscess. Previously demonstrated rectal fecal distention is not evident currently Impression: Interim marked overall worsening of inflammatory changes of the left perineum, left buttock musculature, and left adductor musculature, likely representing cellulitis/myositis given stated clinical history. Evidence of deep penetrating ulcer in the perineum extending to the ischium. Signal abnormality within the left ischium likely indicates osteomyelitis. Left inguinal and iliac chain lymphadenopathy, likely reactive given the above DAILY ESTIMATED NEEDS: Needs based on Paraplegia, wound 68kg 28-33 kcals/kg 6391-4468 total kcals 1.5-2 g protein/kg 102-136 g total protein 25-30 mL/kg 4295-1448 total fluid mLs NUTRITION DIAGNOSIS: Increased kcal and pro needs r/t wound healing as evidenced by pt is wheelchair bound, paraplegic, admitted w/ left hip and ischial osteomyelitis. 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
--- NOTE | 2020-10-11 13:32 | Internal Med Progress Note ---
Subjective Physician Name Harmony Khanna Attending Physician Harmony Khanna M.D. Current Medications Medications (Trade) Dose Ordered Sig/Evelyn Route PRN Reason Start Time Stop Time Status Last Admin Dose Admin Acetaminophen (Tylenol) 650 mg Q6H PRN ORAL Mild Pain (Pain Scale 1-3) 10/07/20 03:30 11/06/20 03:29 Acetaminophen/ Hydrocodone Bitart ([place] 5/325) 1 tab Q6H PRN ORAL Moderate Pain (Pain Scale 4-6) 10/07/20 03:30 10/14/20 03:29 Ascorbic Acid (Vitamin C) 500 mg TWICE A DAY ORAL 10/08/20 18:00 11/07/20 17:59 10/11/20 08:07 Chlorhexidine Gluconate (Cailin-Hex 2%) 1 applic DAILY@2000 TOPIC 10/10/20 20:00 01/08/21 19:59 10/10/20 21:28 Ertapenem 1 gm/ Sodium Chloride 50 ml @ 100 mls/hr Q24H IV 10/10/20 17:00 11/16/20 23:59 10/10/20 17:46 Gabapentin (Neurontin) 300 mg BID ORAL 10/07/20 09:00 11/06/20 08:59 10/11/20 08:07 Heparin Sodium (Porcine) (Heparin 5000 units/ml) 5,000 units EVERY 12 HOURS SUBQ 10/07/20 09:00 11/21/20 08:59 10/10/20 21:31 Heparin Sodium/ Sodium Chloride (Heparin 1000 units/500ml Premix) 1,000 unit ONCE PRN IV radiology procedure 10/10/20 09:00 10/12/20 08:59 Hydromorphone HCl (Dilaudid) 1 mg Q3H PRN IVP breakthrough pain 10/07/20 18:30 10/14/20 18:29 10/11/20 08:07 Lidocaine HCl (Xylocaine 1% 30ml) 30 ml ONCE PRN INJ radiology procedure 10/10/20 09:00 10/12/20 08:59 Morphine Sulfate (Morphine Sulfate) 2 mg Q4H PRN IVP Severe Pain (Pain Scale 7-10) 10/07/20 03:30 10/14/20 03:29 10/09/20 22:58 Multivitamins (Multivitamins) 1 tab DAILY ORAL 10/09/20 09:00 11/08/20 08:59 10/11/20 08:07 Oxybutynin Chloride (Ditropan) 5 mg QHS ORAL 10/07/20 21:00 11/06/20 20:59 10/10/20 21:28 Tramadol HCl (Ultram) 50 mg QHS PRN ORAL Moderate Breakthru Pain (5-7) 10/07/20 03:30 10/14/20 03:29 10/07/20 09:20 Trazodone HCl (Desyrel) 50 mg HSPRN PRN ORAL Insomnia 10/08/20 14:00 11/07/20 13:59 10/09/20 22:43 Vancomycin HCl (Vanco pharmacy to dose) 1 ea DAILY PRN MISC Per rx protocol 10/10/20 16:45 11/09/20 16:44 Vancomycin HCl 1 gm/Dextrose 275 ml @ 183.708 mls/hr Q8HR@0400,1200,2000 IVPB 10/10/20 20:00 10/15/20 19:59 10/11/20 12:10 Zinc Sulfate (Zinc Sulfate) 220 mg DAILY ORAL 10/09/20 09:00 10/19/20 08:59 10/11/20 08:07 Allergies: Coded Allergies: No Known Allergies (Unverified , 06/07/12) ROS Limited/Unobtainable: No Constitutional: Reports: weakness HEENT: Denies: no symptoms, eye pain, blurred vision, tearing, double vision, ear pain, ear discharge, nose pain, nose congestion, throat pain, throat swelling, mouth pain, mouth swelling, other Cardiovascular: Denies: no symptoms, chest pain, edema, irregular heart rate, lightheadedness, palpitations, syncope, other Respiratory: Denies: no symptoms, cough, orthopnea, shortness of breath, SOB with excertion, SOB at rest, sputum, stridor, wheezing, other Gastrointestinal/Abdominal: Denies: no symptoms, abdomen distended, abdominal pain, black stools, tarry stools, blood in stool, constipated, diarrhea, difficulty swallowing, nausea, poor appetite, poor fluid intake, rectal bleeding, vomiting, other Genitourinary: Denies: no symptoms, burning, discharge, frequency, flank pain, hematuria, incontinence, pain, urgency, other Neurologic/Psychiatric: Denies: no symptoms, anxiety, depressed, emotional problems, headache, numbness, paresthesia, pre-existing deficit, seizure, tingling, tremors, weakness, other Subjective now plan for 6 weeks of IV abx for PICCLINE placed left hip/ischial osteomyelitis on imaging Objective Last Vital Signs Date Time Temp Pulse Resp B/P (MAP) Pulse Ox O2 Delivery O2 Flow Rate FiO2 10/11/20 12:00 98.2 100 18 124/71 (88) 93 10/11/20 09:00 Room Air Laboratory Tests Test 10/11/20 05:00 White Blood Count 9.3 K/UL (4.8-10.8) Red Blood Count 3.89 M/UL (4.70-6.10) L Hemoglobin 10.5 G/DL (14.2-18.0) L Hematocrit 32.1 % (42.0-52.0) L Mean Corpuscular Volume 82 FL (80-99) Mean Corpuscular Hemoglobin 27.1 PG (27.0-31.0) Mean Corpuscular Hemoglobin Concent 32.8 G/DL (32.0-36.0) Red Cell Distribution Width 13.2 % (11.6-14.8) Platelet Count 543 K/UL (150-450) H Mean Platelet Volume 6.0 FL (6.5-10.1) L Neutrophils (%) (Auto) 50.9 % (45.0-75.0) Lymphocytes (%) (Auto) 38.7 % (20.0-45.0) Monocytes (%) (Auto) 6.2 % (1.0-10.0) Eosinophils (%) (Auto) 3.4 % (0.0-3.0) H Basophils (%) (Auto) 0.9 % (0.0-2.0) Sodium Level 138 MMOL/L (136-145) Potassium Level 3.9 MMOL/L (3.5-5.1) Chloride Level 107 MMOL/L (98-107) Carbon Dioxide Level 21 MMOL/L (21-32) Anion Gap 10 mmol/L (5-15) Blood Urea Nitrogen 11 mg/dL (7-18) Creatinine 0.7 MG/DL (0.55-1.30) Estimat Glomerular Filtration Rate > 60 mL/min (>60) Glucose Level 86 MG/DL (74-106) Calcium Level 9.1 MG/DL (8.5-10.1) Total Bilirubin 0.3 MG/DL (0.2-1.0) Aspartate Amino Transf (AST/SGOT) 18 U/L (15-37) Alanine Aminotransferase (ALT/SGPT) 38 U/L (12-78) Alkaline Phosphatase 75 U/L (46-116) Total Protein 7.7 G/DL (6.4-8.2) Albumin 2.4 G/DL (3.4-5.0) L Globulin 5.3 g/dL Albumin/Globulin Ratio 0.5 (1.0-2.7) L Intake and Output 10/10/20 10/11/20 19:00 07:00 Intake Total 1200 ml 240 ml Output Total 375 ml 650 ml Balance 825 ml -410 ml Intake Oral 1200 ml 240 ml Output Urine Total 375 ml 650 ml # Voids 1 Objective eneral appearance: alert, cooperative, no distress, appears stated age Head: Normocephalic, without obvious abnormality, atraumatic Eyes: conjunctivae/corneas clear. PERRL, EOM's intact. Fundi benign Throat: Lips, mucosa, and tongue normal. Teeth and gums normal Neck: supple, symmetrical, trachea midline, no adenopathy, thyroid: not enlarged, symmetric, no tenderness/mass/nodules, no carotid bruit and no JVD Lungs: clear to auscultation bilaterally Heart: regular rate and rhythm, S1, S2 normal, no murmur, click, rub or gallop Abdomen: soft, non-tender. Bowel sounds normal. No masses, no organomegaly Extremities: extremities normal, atraumatic, no cyanosis or edema Pulses: 2+ and symmetric Skin: + pressure ulcer with drainage Neurologic: Grossly normal Assessment/Plan Assessment/Plan #pressure ulcer/wound infection r/o osteo- #Sepsis #paraplegia #neurogenic bladder - piccline placed - ID eval - general surg eval - continue abx per ID - pain control - resume home med - on oxybutynin time spent 35 min Harmony Khanna M.D. Oct 11, 2020 13:32
--- NOTE | 2020-10-11 14:00 | NUR ---
NURSE NOTES: Change the dressing on sacral area
--- NOTE | 2020-10-11 15:03 | NUR ---
*-*DISCHARGE PLANNING*-* PATIENT HAS BEEN REFERRED TO: [facility] P: [phone] NO ANSWER
--- NOTE | 2020-10-11 15:32 | NUR ---
NURSE NOTES: Received pt from NARDA Luis. pt is resting comfortably no acute distress, call light w/in reach.
[2020-10-11 16:00] VITALS: BP 115/79
[2020-10-11] MEDS: Morphine Sulfate 2mg/ml Inj(IV/IM USE ONLY) IVP PRN ×2 (16:33→20:35)
--- NOTE | 2020-10-11 19:37 | NUR ---
HAND-OFF: Report given to NARDA Miller. pt is stable condition.
--- NOTE | 2020-10-11 19:40 | NUR ---
NURSE NOTES: Received patient on bed, awake. alert and oriented. on room air, sating 97%. piccline on the left upper arm. per NARDA villar, "wound dressing change ". reiterated to call and ask for assistance to prevent fall or injury. kept head of bed, elevated. bed locked and in lowest position. bed alarm front desk attendant light and light button within easy reach. will continue plan of care.
[2020-10-11 20:00] VITALS: BP 126/76
[2020-10-11] MEDS: Dyna-Hex 2% Top Sol 2oz TOPIC SCH (20:34)
[2020-10-11] MEDS: Oxybutynin 5mg tab ORAL SCH (20:35)
--- NOTE | 2020-10-11 20:59 | NUR ---
NURSE NOTES: RECEIVED ORDERS FROM DR. CALHOUN. NOTED AND AND CARRIED OUT. CHARGE NURSE MADE AWARE.
[2020-10-12] VITALS: BP 120/79
--- NOTE | 2020-10-12 03:53 | NUR ---
NURSE NOTES: called juany, spoke to Syed mccracken to continue the same dose. charge nurse made aware
[2020-10-12] MEDS: Vancomycin 1gm/D5W 275ml IVPB SCH ×6 (03:54→20:34)
[2020-10-12] MEDS: HYDROmorphone 1mg/ml Carpuject IVP PRN ×5 (03:58→21:37)
[2020-10-12 04:00] VITALS: BP 131/85
--- NOTE | 2020-10-12 06:33 | NUR ---
NURSE HAND-OFF: Important Events on Shift: pain mngt; Patient Status: stable Diet: regular Pending Orders: Pending Results/Labs: Pending MD notification: Latest Vital Signs: Temperature 98.2 , Pulse 93 , B/P 131 /85 , Respiratory Rate 18 , O2 SAT 96 , Room Air, O2 Flow Rate . Vital Sign Comment: Latest Vega Fall Score: 35 Fall Risk: Medium Risk Safety Measures: Call light Within Reach, Bed Alarm Zone 1, Side Rails Side Rails x2, Bed position Low and Locked. Fall Precautions: Yellow Socks Door Sign Patient Fall Education Addendum: 10/12/20 at 0727 by Maria Elena Garzon RN HAND-OFF: Report given to alessandra whitfield.
[2020-10-12 08:00] VITALS: BP 119/74
--- NOTE | 2020-10-12 08:00 | NUR ---
NURSE NOTES: Received patient lying in bed, awake, alert, and oriented x4. Patient is paraplegic, mostly independent, in room air, no S/S of SOB/Distress. Patient . PICC LEWIS 2L, saline locked. Bed placed on lowest position possible, locked, call light placed within reach, side rails up x3. Will continue to monitor patient and follow up with the plan of care.
[2020-10-12] MEDS: Ascorbic Acid 500mg tab ORAL SCH ×2 (08:13→17:23)
[2020-10-12] MEDS: Zinc Sulfate 220mg ORAL SCH (08:13)
[2020-10-12] MEDS: Heparin 5000 units/ml inj SUBQ SCH ×2 (08:14→20:34)
[2020-10-12 12:00] VITALS: BP 111/77
--- NOTE | 2020-10-12 13:52 | Surgery Progress Note ---
Surgery Progress Note Subjective Symptoms: improved, tolerating diet, passing flatus Objective Last 24 Hour Vital Signs Date Time Temp Pulse Resp B/P (MAP) Pulse Ox O2 Delivery O2 Flow Rate FiO2 10/12/20 12:00 98.2 117 18 111/77 (88) 100 10/12/20 09:42 98.2 10/12/20 09:00 Room Air 10/12/20 08:00 98.5 105 18 119/74 (89) 96 10/12/20 04:28 98.2 10/12/20 04:00 98.5 93 18 131/85 (100) 96 10/12/20 00:00 98.2 97 18 120/79 (93) 94 10/11/20 21:16 98.5 10/11/20 21:00 Room Air 10/11/20 20:00 98.1 98 18 126/76 (93) 94 10/11/20 16:00 98.5 100 18 115/79 (91) 99 I&O Intake and Output 10/11/20 10/12/20 19:00 07:00 Intake Total 500 ml 1000 ml Balance 500 ml 1000 ml Intake Oral 500 ml 1000 ml # Voids 1 2 # Bowel Movements 1 1 Dressing: saturated Cardiovascular: RSR Respiratory: decreased breath sounds Abdomen: soft, non-tender, present bowel sounds Extremities: no edema, no tenderness, no cyanosis Laboratory Tests Test 10/12/20 03:05 Vancomycin Level Trough 15.3 ug/mL (5.0-12.0) H Plan Problems: (1) Sepsis (2) Abscess (3) Abscess (4) Abscess (5) Anemia (6) Cellulitis (7) Hyponatremia (8) Nephrolithiasis (9) Rodriguez cyst (10) Viral syndrome (11) UTI (urinary tract infection) (12) Osteomyelitis Assessment & Plan: 29M with chronic decubitus ulcers now with osteo and declining. local wound care provided by team and patient evaluated in detail care plan discussed with patients outpatient wound care provider notes reviewed please refer to recent outpatient care eval note for details appreciate Dr. Quiros input cont with local care iv abx planned will need a picc ID input appreciated will cont with local wound care Extensive edema is seen within the medial thigh adductor musculature on the left, extending beyond the image volume. There is also extensive edema within the perineum, left greater than right as well as within the left gluteal musculature. Edema is seen inferior to the ischium within the perineum, markedly increased since prior exam. Areas of flow void likely represent gas, not evident previously. These appear to communicate with the skin surface likely indicative of a deep penetrating ulcer. Edema is different in distribution since the prior study; on the previous exam this was largely confined to the subcutaneous fat, currently mostly spares the subcutaneous fat and is predominantly within the muscle There is considerable marrow edema within the left ischium, manifested by increased STIR and decreased T1 signal. This is a new finding since previous exam. The right ischium is not well-demonstrated, somewhat hypoplastic, as previously, but no definite osseous signal abnormality in this region is demonstrated. Prominent T2 hyperintense left inguinal and left distal iliac chain lymph nodes are again demonstrated. The largest left iliac chain node appears somewhat larger than the prior exam. No definite evidence of soft tissue abscess. Previously demonstr ated rectal fecal distention is not evident currently Impression: Interim marked overall worsening of inflammatory changes of the left perineum, left buttock musculature, and left adductor musculature, likely representing cellulitis/myositis given stated clinical history. Evidence of deep penetrating ulcer in the perineum extending to the ischium. Signal abnormality within the left ischium likely indicates osteomyelitis. Left inguinal and iliac chain lymphadenopathy, likely reactive given the above DAILY ESTIMATED NEEDS: Needs based on Paraplegia, wound 68kg 28-33 kcals/kg 1649-7119 total kcals 1.5-2 g protein/kg 102-136 g total protein 25-30 mL/kg 3741-7917 total fluid mLs NUTRITION DIAGNOSIS: Increased kcal and pro needs r/t wound healing as evidenced by pt is wheelchair bound, paraplegic, admitted w/ left hip and ischial osteomyelitis. 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
--- NOTE | 2020-10-12 14:24 | Internal Med Progress Note ---
Subjective Physician Name Harmony Khanna Attending Physician Harmony Khanna M.D. Current Medications Medications (Trade) Dose Ordered Sig/Evelyn Route PRN Reason Start Time Stop Time Status Last Admin Dose Admin Acetaminophen (Tylenol) 650 mg Q6H PRN ORAL Mild Pain (Pain Scale 1-3) 10/07/20 03:30 11/06/20 03:29 Acetaminophen/ Hydrocodone Bitart (Altus 5/325) 1 tab Q6H PRN ORAL Moderate Pain (Pain Scale 4-6) 10/07/20 03:30 10/14/20 03:29 Ascorbic Acid (Vitamin C) 500 mg TWICE A DAY ORAL 10/08/20 18:00 11/07/20 17:59 10/12/20 08:13 Chlorhexidine Gluconate (Cailin-Hex 2%) 1 applic DAILY@2000 TOPIC 10/10/20 20:00 01/08/21 19:59 10/11/20 20:34 Ertapenem 1 gm/ Sodium Chloride 50 ml @ 100 mls/hr Q24H IV 10/10/20 17:00 11/16/20 23:59 10/11/20 16:32 Gabapentin (Neurontin) 300 mg BID ORAL 10/07/20 09:00 11/06/20 08:59 10/12/20 08:13 Heparin Sodium (Porcine) (Heparin 5000 units/ml) 5,000 units EVERY 12 HOURS SUBQ 10/07/20 09:00 11/21/20 08:59 10/10/20 21:31 Hydromorphone HCl (Dilaudid) 1 mg Q3H PRN IVP Severe Pain (Pain Scale 7-10) 10/11/20 21:00 10/18/20 20:59 10/12/20 09:12 Multivitamins (Multivitamins) 1 tab DAILY ORAL 10/09/20 09:00 11/08/20 08:59 10/12/20 08:13 Oxybutynin Chloride (Ditropan) 5 mg QHS ORAL 10/07/20 21:00 11/06/20 20:59 10/11/20 20:35 Tramadol HCl (Ultram) 50 mg QHS PRN ORAL Moderate Breakthru Pain (5-7) 10/07/20 03:30 10/14/20 03:29 10/07/20 09:20 Trazodone HCl (Desyrel) 50 mg HSPRN PRN ORAL Insomnia 10/08/20 14:00 11/07/20 13:59 10/09/20 22:43 Vancomycin HCl (Vanco pharmacy to dose) 1 ea DAILY PRN MISC Per rx protocol 10/10/20 16:45 11/09/20 16:44 Vancomycin HCl 1 gm/Dextrose 275 ml @ 183.708 mls/hr Q8HR@0400,1200,2000 IVPB 10/10/20 20:00 10/15/20 19:59 10/12/20 13:12 Zinc Sulfate (Zinc Sulfate) 220 mg DAILY ORAL 10/09/20 09:00 10/19/20 08:59 10/12/20 08:13 Allergies: Coded Allergies: No Known Allergies (Unverified , 06/07/12) Subjective now plan for 6 weeks of IV abx for PICCLINE placed left hip/ischial osteomyelitis on imaging Objective Last Vital Signs Date Time Temp Pulse Resp B/P (MAP) Pulse Ox O2 Delivery O2 Flow Rate FiO2 10/12/20 12:00 98.2 117 18 111/77 (88) 100 10/12/20 09:00 Room Air Laboratory Tests Test 10/12/20 03:05 Vancomycin Level Trough 15.3 ug/mL (5.0-12.0) H Intake and Output 10/11/20 10/12/20 19:00 07:00 Intake Total 500 ml 1000 ml Balance 500 ml 1000 ml Intake Oral 500 ml 1000 ml # Voids 1 2 # Bowel Movements 1 1 Objective eneral appearance: alert, cooperative, no distress, appears stated age Head: Normocephalic, without obvious abnormality, atraumatic Eyes: conjunctivae/corneas clear. PERRL, EOM's intact. Fundi benign Throat: Lips, mucosa, and tongue normal. Teeth and gums normal Neck: supple, symmetrical, trachea midline, no adenopathy, thyroid: not enlarged, symmetric, no tenderness/mass/nodules, no carotid bruit and no JVD Lungs: clear to auscultation bilaterally Heart: regular rate and rhythm, S1, S2 normal, no murmur, click, rub or gallop Abdomen: soft, non-tender. Bowel sounds normal. No masses, no organomegaly Extremities: extremities normal, atraumatic, no cyanosis or edema Pulses: 2+ and symmetric Skin: + pressure ulcer with drainage Neurologic: Grossly normal Assessment/Plan Assessment/Plan #pressure ulcer/wound infection r/o osteo- #Sepsis #paraplegia #neurogenic bladder - piccline placed - ID eval - general surg eval - continue abx per ID- on vanco and ertapenem - pain control - resume home med - on oxybutynin time spent 35 min Harmony Khanna M.D. Oct 12, 2020 14:24
--- NOTE | 2020-10-12 14:55 | Infectious Diseases Prog Note ---
Assessment/Plan Assessment/Plan ASSESSMENT AND PLAN: 1. left buttock/gluteal wound infection with left hip/ischial osteomyelitis on imaging, cellulitis, perineal involvement wound culture with gram + organisms, cultures pending sepsis, leukocytosis, elevated sed rate wound culture with streptococcus agalactiae - group b and diphtheroids x 2 - vancomycin and ertapenem - day # 7/42 antibiotics, must consider polymicrobial infection, including anaerobes - can give daptomycin instead of vancomycin if less frequent dosing needed (plus ertapenem) - monitor labs at least weekly - sed rate, crp, cbc, cmp, ck (if daptomycin used) - surgery f/u noted - picc line placed 2. The patient has history of asthma. 3. Paraplegia. 4. Spinal cord injury. 5. History of back surgery. 6. Paraplegia and weakness. 7. COVID testing four weeks ago was negative. Currently, he has no fevers. Chest x-ray is negative. 8. Anemia. 9. Continue treatment per primary consultants. 10. Orders were noted and entered. 11. No known drug allergies. 12. Social history is negative. 13. Family is noncontributory. 14. MAR is noted. 15. Case was discussed with RN. Subjective Constitutional: Denies: fever HEENT: Denies: congestion Respiratory: Denies: shortness of breath Cardiovascular: Denies: chest pain Gastrointestinal/Abdominal: Denies: nausea, vomiting, diarrhea Genitourinary: Reports: other - no kelley Neurologic: Denies: headache Psychiatric: Denies: depression Skin: Denies: rash Hematologic: Denies: bleeding Musculoskeletal: Denies: pain Allergies: Coded Allergies: No Known Allergies (Unverified , 06/07/12) Objective Last 24 Hour Vital Signs Date Time Temp Pulse Resp B/P (MAP) Pulse Ox O2 Delivery O2 Flow Rate FiO2 10/12/20 12:00 98.2 117 18 111/77 (88) 100 10/12/20 09:42 98.2 10/12/20 09:00 Room Air 10/12/20 08:00 98.5 105 18 119/74 (89) 96 10/12/20 04:28 98.2 10/12/20 04:00 98.5 93 18 131/85 (100) 96 10/12/20 00:00 98.2 97 18 120/79 (93) 94 10/11/20 21:16 98.5 10/11/20 21:00 Room Air 10/11/20 20:00 98.1 98 18 126/76 (93) 94 10/11/20 16:00 98.5 100 18 115/79 (91) 99 Height (Feet): 6 Height (Inches): 4.00 Weight (Pounds): 150 General Appearance: no acute distress HEENT: normocephalic, atraumatic, anicteric Respiratory/Chest: crackles/rales, rhonchi - bilaterally Cardiovascular: normal rate, regular rhythm, no gallop/murmur, no JVD Abdomen: normal bowel sounds, soft, non tender, no organomegaly, non distended Genitourinary: other - no kelley Extremities: no cyanosis Skin: no rash Neurologic/Psychiatric: icu manager II-XII grossly normal, alert, oriented x 3, res ponsive Lymphatic: no neck adenopathy Musculoskeletal: no effusion CT scan of abdomen and pelvis: IMPRESSION: 1. Left inferior gluteal decubitus ulcer with prominent fat stranding. The ulceration extends to the level of the left ischium. 2. Small amount of lucency in the left ischial bone is concerning for osteomyelitis. 3. Mild prominence of the bladder wall is nonspecific. Please correlate with urinalysis if concerned for cystitis. 4. Nonspecific mildly prominent mesenteric and retroperitoneal lymph nodes which may be reactive. Nonspecific prominent left inguinal and iliac chain lymph nodes. These are increased compared to prior exam. Outpatient MRI noted - report noted, c/w osteomyelitis Procedure: XRAY Chest 1v Indication: Shortness of breath Technique: One view of the chest Comparison: 10/17/2017 Findings: Lungs and pleural spaces are clear. Heart size is normal. No significant change Impression: No acute process Microbiology Date/Time Source Procedure Growth Status 10/06/20 22:45 Nasopharynx SARS-CoV-2 RdRp Gene Assay - Final Complete 10/06/20 16:15 Anus Gram Stain - Final Complete 10/06/20 16:15 Wound Culture - Final Strep Agalactiae Group B Diphtheroids Complete 10/06/20 16:15 Blood Blood Culture - Final NO GROWTH AFTER 5 DAYS Complete Labs Test 10/10/20 07:15 10/10/20 11:39 10/11/20 05:00 10/12/20 03:05 White Blood Count 8.9 K/UL (4.8-10.8) 9.3 K/UL (4.8-10.8) Red Blood Count 4.10 M/UL (4.70-6.10) 3.89 M/UL (4.70-6.10) Hemoglobin 11.0 G/DL (14.2-18.0) 10.5 G/DL (14.2-18.0) Hematocrit 34.1 % (42.0-52.0) 32.1 % (42.0-52.0) Mean Corpuscular Volume 83 FL (80-99) 82 FL (80-99) Mean Corpuscular Hemoglobin 26.7 PG (27.0-31.0) 27.1 PG (27.0-31.0) Mean Corpuscular Hemoglobin Concent 32.2 G/DL (32.0-36.0) 32.8 G/DL (32.0-36.0) Red Cell Distribution Width 12.7 % (11.6-14.8) 13.2 % (11.6-14.8) Platelet Count 594 K/UL (150-450) 543 K/UL (150-450) Mean Platelet Volume 6.3 FL (6.5-10.1) 6.0 FL (6.5-10.1) Neutrophils (%) (Auto) 55.7 % (45.0-75.0) 50.9 % (45.0-75.0) Lymphocytes (%) (Auto) 32.7 % (20.0-45.0) 38.7 % (20.0-45.0) Monocytes (%) (Auto) 7.2 % (1.0-10.0) 6.2 % (1.0-10.0) Eosinophils (%) (Auto) 3.6 % (0.0-3.0) 3.4 % (0.0-3.0) Basophils (%) (Auto) 0.8 % (0.0-2.0) 0.9 % (0.0-2.0) Erythrocyte Sedimentation Rate 73 MM/HR (0-15) Sodium Level 139 MMOL/L (136-145) 138 MMOL/L (136-145) Potassium Level 5.0 MMOL/L (3.5-5.1) 3.9 MMOL/L (3.5-5.1) Chloride Level 106 MMOL/L (98-107) 107 MMOL/L (98-107) Carbon Dioxide Level 26 MMOL/L (21-32) 21 MMOL/L (21-32) Anion Gap 7 mmol/L (5-15) 10 mmol/L (5-15) Blood Urea Nitrogen 10 mg/dL (7-18) 11 mg/dL (7-18) Creatinine 0.8 MG/DL (0.55-1.30) 0.7 MG/DL (0.55-1.30) Estimat Glomerular Filtration Rate > 60 mL/min (>60) > 60 mL/min (>60) Glucose Level 88 MG/DL (74-106) 86 MG/DL (74-106) Calcium Level 9.5 MG/DL (8.5-10.1) 9.1 MG/DL (8.5-10.1) Total Bilirubin 0.5 MG/DL (0.2-1.0) 0.3 MG/DL (0.2-1.0) Aspartate Amino Transf (AST/SGOT) 11 U/L (15-37) 18 U/L (15-37) Alanine Aminotransferase (ALT/SGPT) 32 U/L (12-78) 38 U/L (12-78) Alkaline Phosphatase 80 U/L (46-116) 75 U/L (46-116) C-Reactive Protein, Quantitative 7.4 mg/dL (0.00-0.90) Total Protein 7.2 G/DL (6.4-8.2) 7.7 G/DL (6.4-8.2) Albumin 2.5 G/DL (3.4-5.0) 2.4 G/DL (3.4-5.0) Globulin 4.7 g/dL 5.3 g/dL Albumin/Globulin Ratio 0.5 (1.0-2.7) 0.5 (1.0-2.7) Vancomycin Level Trough 11.9 ug/mL (5.0-12.0) 15.3 ug/mL (5.0-12.0) Laboratory Tests Test 10/12/20 03:05 Vancomycin Level Trough 15.3 ug/mL (5.0-12.0) H Current Medications Medications (Trade) Dose Ordered Sig/Evelyn Route PRN Reason Start Time Stop Time Status Last Admin Dose Admin Acetaminophen (Tylenol) 650 mg Q6H PRN ORAL Mild Pain (Pain Scale 1-3) 10/07/20 03:30 11/06/20 03:29 Acetaminophen/ Hydrocodone Bitart (Fisher 5/325) 1 tab Q6H PRN ORAL Moderate Pain (Pain Scale 4-6) 10/07/20 03:30 10/14/20 03:29 Ascorbic Acid (Vitamin C) 500 mg TWICE A DAY ORAL 10/08/20 18:00 11/07/20 17:59 10/12/20 08:13 Chlorhexidine Gluconate (Cailin-Hex 2%) 1 applic DAILY@1999 TOPIC 10/10/20 20:00 01/08/21 19:59 10/11/20 20:34 Ertapenem 1 gm/ Sodium Chloride 50 ml @ 100 mls/hr Q24H IV 10/10/20 17:00 11/16/20 23:59 10/11/20 16:32 Gabapentin (Neurontin) 300 mg BID ORAL 10/07/20 09:00 11/06/20 08:59 10/12/20 08:13 Heparin Sodium (Porcine) (Heparin 5000 units/ml) 5,000 units EVERY 12 HOURS SUBQ 10/07/20 09:00 11/21/20 08:59 10/10/20 21:31 Hydromorphone HCl (Dilaudid) 1 mg Q3H PRN IVP Severe Pain (Pain Scale 7-10) 10/11/20 21:00 10/18/20 20:59 10/12/20 14:29 Multivitamins (Multivitamins) 1 tab DAILY ORAL 10/09/20 09:00 11/08/20 08:59 10/12/20 08:13 Oxybutynin Chloride (Ditropan) 5 mg QHS ORAL 10/07/20 21:00 11/06/20 20:59 10/11/20 20:35 Tramadol HCl (Ultram) 50 mg QHS PRN ORAL Moderate Breakthru Pain (5-7) 10/07/20 03:30 10/14/20 03:29 10/07/20 09:20 Trazodone HCl (Desyrel) 50 mg HSPRN PRN ORAL Insomnia 10/08/20 14:00 11/07/20 13:59 10/09/20 22:43 Vancomycin HCl (Vanco pharmacy to dose) 1 ea DAILY PRN MISC Per rx protocol 10/10/20 16:45 11/09/20 16:44 Vancomycin HCl 1 gm/Dextrose 275 ml @ 183.708 mls/hr Q8HR@0400,1200,2000 IVPB 10/10/20 20:00 10/15/20 19:59 10/12/20 13:12 Zinc Sulfate (Zinc Sulfate) 220 mg DAILY ORAL 10/09/20 09:00 10/19/20 08:59 10/12/20 08:13 Cinthia Arroyo MD Oct 12, 2020 14:55
[2020-10-12 16:00] VITALS: BP 140/92
--- NOTE | 2020-10-12 19:30 | NUR ---
NURSE NOTES: Received patient on bed, awake. alert and oriented. on room air, sating 99%. piccline on the left upper arm.denies any pain or discomfort. reiterated to call and ask for assistance to prevent fall or injury. kept head of bed, elevated. bed locked and in lowest position. bed alarm component assembler supervisor light and light button within easy reach. will continue plan of care.
--- NOTE | 2020-10-12 19:55 | NUR ---
NURSE HAND-OFF: Important Events on Shift:[] Patient Status: [] Diet: [] Pending Orders: [] Pending Results/Labs:[] Pending MD notification:[] Latest Vital Signs: Temperature 98.5 , Pulse 128 , B/P 140 /92 , Respiratory Rate 18 , O2 SAT 96 , Room Air, O2 Flow Rate . Vital Sign Comment: [] Latest Vega Fall Score: 35 Fall Risk: Medium Risk Safety Measures: Call light Within Reach, Bed Alarm Zone 1, Side Rails Side Rails x2, Bed position Low and Locked. Fall Precautions: Yellow Socks Door Sign Patient Fall Education Report given to [NARDA Garzon].
[2020-10-12 20:00] VITALS: BP 117/79
[2020-10-12] MEDS: Dyna-Hex 2% Top Sol 2oz TOPIC SCH (20:34)
[2020-10-12] MEDS: Oxybutynin 5mg tab ORAL SCH (20:34)
[2020-10-13] VITALS: BP 116/72
[2020-10-13] MEDS: HYDROmorphone 1mg/ml Carpuject IVP PRN ×4 (00:43→13:27)
[2020-10-13 04:00] VITALS: BP 120/75
[2020-10-13] MEDS: Vancomycin 1gm/D5W 275ml IVPB SCH ×4 (04:16→13:09)
--- NOTE | 2020-10-13 06:07 | NUR ---
NURSE HAND-OFF: Important Events on Shift: wound dressing, pain mngt Patient Status: stable Diet:regular Pending Orders: Pending Results/Labs: Pending MD notification: Latest Vital Signs: Temperature 98.4 , Pulse 100 , B/P 120 /75 , Respiratory Rate 19 , O2 SAT 98 , Room Air, O2 Flow Rate . Vital Sign Comment: Latest Vega Fall Score: 35 Fall Risk: Medium Risk Safety Measures: Call light Within Reach, Bed Alarm Zone 1, Side Rails Side Rails x2, Bed position Low and Locked. Fall Precautions: Yellow Socks Door Sign Patient Fall Education Addendum: 10/13/20 at 0736 by Maria Elena Garzon RN HAND-OFF: Report given to alessandra smith.
[2020-10-13 06:29] LABS: BASOPHILS % (AUTO) 0.8 % (0.0-2.0); EOSINOPHILS % (AUTO) 3.7 % (0.0-3.0); HEMATOCRIT 34.9 % (42.0-52.0); HEMOGLOBIN 11.2 G/DL (14.2-18.0); MEAN CORPUSCULAR VOLUME 83 FL (80-99); MONOCYTES % (AUTO) 6.5 % (1.0-10.0); PLATELET COUNT 579 K/UL (150-450); RED BLOOD COUNT 4.19 M/UL (4.70-6.10); RED CELL DISTRIBUTION WIDTH 14.1 % (11.6-14.8); WHITE BLOOD COUNT 12.1 K/UL (4.8-10.8)
[2020-10-13 06:43] LABS: ALANINE AMINOTRANSFERASE 43 U/L (12-78); ALBUMIN 2.6 G/DL (3.4-5.0); ALBUMIN/GLOBULIN RATIO 0.5 (1.0-2.7); ALKALINE PHOSPHATASE 81 U/L (46-116); ANION GAP 11 mmol/L (5-15); ASPARTATE AMINO TRANSFERASE 16 U/L (15-37); BILIRUBIN,TOTAL 0.2 MG/DL (0.2-1.0); BLOOD UREA NITROGEN 11 mg/dL (7-18); CALCIUM 9.5 MG/DL (8.5-10.1); CARBON DIOXIDE 22 MMOL/L (21-32); CHLORIDE 105 MMOL/L (98-107); CREATININE 0.8 MG/DL (0.55-1.30); SODIUM 138 MMOL/L (136-145)
--- NOTE | 2020-10-13 07:34 | NUR ---
NURSE NOTES: Report received from Angela LABOY, rounds made. Patient AOx4, calm. Respirations even/unlabored on RA. LEWIS PICC,dressing CDI. Denies need for pain medication at this time. P200 [address], left buttocks dressing CDI, will provide wound care as ordered. Call light in reach, bed in lowest position, will continue to monitor.
[2020-10-13 08:00] VITALS: BP 128/83
[2020-10-13] MEDS: Heparin 5000 units/ml inj SUBQ SCH (09:00)
[2020-10-13] MEDS: Zinc Sulfate 220mg ORAL SCH (09:08)
[2020-10-13] MEDS: Ascorbic Acid 500mg tab ORAL SCH (09:08)
--- NOTE | 2020-10-13 09:31 | NUR ---
NURSE NOTES: Allyn (Analysis Engineer) notified that patient is requesting to speak with CM regarding his DCP/HH. Allyn will follow up with referred home health and patient.
--- NOTE | 2020-10-13 09:35 | NUR ---
*-*DISCHARGE PLANNING*-* PATIENT HAS BEEN REFERRED TO: [facility] P: [phone] S/W OLGA LIDIA [facility] SERVICE PATIENT UPON DISCHARGE.
[2020-10-13 12:00] VITALS: BP 126/82
--- NOTE | 2020-10-13 12:21 | Surgery Progress Note ---
Surgery Progress Note Subjective Symptoms: improved, tolerating diet, passing flatus, BM, pain decreased Objective Last 24 Hour Vital Signs Date Time Temp Pulse Resp B/P (MAP) Pulse Ox O2 Delivery O2 Flow Rate FiO2 10/13/20 08:00 97.9 120 19 128/83 (98) 94 10/13/20 04:46 98.4 10/13/20 04:00 98.2 100 19 120/75 (90) 98 10/13/20 01:13 98.4 10/13/20 00:00 98.4 95 18 116/72 (87) 100 10/12/20 22:07 98.2 10/12/20 21:00 Room Air 10/12/20 20:00 98.2 92 18 117/79 (92) 96 10/12/20 18:57 98.5 10/12/20 16:00 98.5 128 18 140/92 (108) 96 10/12/20 14:59 98.2 I&O Intake and Output 10/12/20 10/13/20 19:00 07:00 Intake Total 480 ml 1000 ml Output Total 400 ml 600 ml Balance 80 ml 400 ml Intake Oral 480 ml 1000 ml Output Urine Total 400 ml 600 ml # Voids 3 1 Dressing: saturated Wound: clean Cardiovascular: RSR Respiratory: clear Abdomen: soft, flat, non-tender, present bowel sounds Extremities: no edema, no tenderness, no cyanosis Laboratory Tests Test 10/13/20 05:00 White Blood Count 12.1 K/UL (4.8-10.8) H Red Blood Count 4.19 M/UL (4.70-6.10) L Hemoglobin 11.2 G/DL (14.2-18.0) L Hematocrit 34.9 % (42.0-52.0) L Mean Corpuscular Volume 83 FL (80-99) Mean Corpuscular Hemoglobin 26.8 PG (27.0-31.0) L Mean Corpuscular Hemoglobin Concent 32.2 G/DL (32.0-36.0) Red Cell Distribution Width 14.1 % (11.6-14.8) Platelet Count 579 K/UL (150-450) H Mean Platelet Volume 6.2 FL (6.5-10.1) L Neutrophils (%) (Auto) 52.0 % (45.0-75.0) Lymphocytes (%) (Auto) 37.0 % (20.0-45.0) Monocytes (%) (Auto) 6.5 % (1.0-10.0) Eosinophils (%) (Auto) 3.7 % (0.0-3.0) H Basophils (%) (Auto) 0.8 % (0.0-2.0) Erythrocyte Sedimentation Rate 81 MM/HR (0-15) H Sodium Level 138 MMOL/L (136-145) Potassium Level 4.0 MMOL/L (3.5-5.1) Chloride Level 105 MMOL/L (98-107) Carbon Dioxide Level 22 MMOL/L (21-32) Anion Gap 11 mmol/L (5-15) Blood Urea Nitrogen 11 mg/dL (7-18) Creatinine 0.8 MG/DL (0.55-1.30) Estimat Glomerular Filtration Rate > 60 mL/min (>60) Glucose Level 83 MG/DL (74-106) Calcium Level 9.5 MG/DL (8.5-10.1) Total Bilirubin 0.2 MG/DL (0.2-1.0) Aspartate Amino Transf (AST/SGOT) 16 U/L (15-37) Alanine Aminotransferase (ALT/SGPT) 43 U/L (12-78) Alkaline Phosphatase 81 U/L (46-116) Total Protein 7.9 G/DL (6.4-8.2) Albumin 2.6 G/DL (3.4-5.0) L Globulin 5.3 g/dL Albumin/Globulin Ratio 0.5 (1.0-2.7) L Plan Problems: (1) Sepsis (2) Abscess (3) Abscess (4) Abscess (5) Anemia (6) Cellulitis (7) Hyponatremia (8) Nephrolithiasis (9) Rodriguez cyst (10) Viral syndrome (11) UTI (urinary tract infection) (12) Osteomyelitis Assessment & Plan: 29M with chronic decubitus ulcers now with osteo and declining. local wound care provided by team and patient evaluated in detail care plan discussed with patients outpatient wound care provider notes reviewed please refer to recent outpatient care eval note for details appreciate Dr. Quiros input cont with local care iv abx planned will need a picc ID input appreciated will cont with local wound care improving granulation tissue noted dressings going well pending d/c set up home health Extensive edema is seen within the medial thigh adductor musculature on the left, extending beyond the image volume. There is also extensive edema within the perineum, left greater than right as well as within the left gluteal musculature. Edema is seen inferior to the ischium within the perineum, markedly increased since prior exam. Areas of flow void likely represent gas, not evident previously. These appear to communicate with the skin surface likely indicative of a deep penetrating ulcer. Edema is different in distribution since the prior study; on the previous exam this was largely confined to the subcutaneous fat, currently mostly spares the subcutaneous fat and is predominantly within the muscle There is considerable marrow edema within the left ischium, manifested by increased STIR and decreased T1 signal. This is a new finding since previous exam. The right ischium is not well-demonstrated, somewhat hypoplastic, as previously, but no definite osseous signal abnormality in this region is demonstrated. Prominent T2 hyperintense left inguinal and left distal iliac chain lymph nodes are again demonstrated. The largest left iliac chain node appears somewhat larger than the prior exam. No definite evidence of soft tissue abscess. Previously demonstrated rectal fecal distention is not evident currently Impression: Interim marked overall worsening of inflammatory changes of the left perineum, left buttock musculature, and left adductor musculature, likely representing cellulitis/myositis given stated clinical history. Evidence of deep penetrating ulcer in the perineum extending to the ischium. Signal abnormality within the left ischium likely indicates osteomyelitis. Left inguinal and iliac chain lymphadenopathy, likely reactive given the above DAILY ESTIMATED NEEDS: Needs based on Paraplegia, wound 68kg 28-33 kcals/kg 8366-6502 total kcals 1.5-2 g protein/kg 102-136 g total protein 25-30 mL/kg 1814-5221 total fluid mLs NUTRITION DIAGNOSIS: Increased kcal and pro needs r/t wound healing as evidenced by pt is wheelchair bound, paraplegic, admitted w/ left hip and ischial osteomyelitis. 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
--- NOTE | 2020-10-13 12:24 | Internal Med Progress Note ---
Subjective Physician Name Harmony Khanna Attending Physician Harmony Khanna M.D. Current Medications Medications (Trade) Dose Ordered Sig/Evelyn Route PRN Reason Start Time Stop Time Status Last Admin Dose Admin Acetaminophen (Tylenol) 650 mg Q6H PRN ORAL Mild Pain (Pain Scale 1-3) 10/07/20 03:30 11/06/20 03:29 Acetaminophen/ Hydrocodone Bitart ([place] 5/325) 1 tab Q6H PRN ORAL Moderate Pain (Pain Scale 4-6) 10/07/20 03:30 10/14/20 03:29 Ascorbic Acid (Vitamin C) 500 mg TWICE A DAY ORAL 10/08/20 18:00 11/07/20 17:59 10/13/20 09:08 Chlorhexidine Gluconate (Cailin-Hex 2%) 1 applic DAILY@2000 TOPIC 10/10/20 20:00 01/08/21 19:59 10/12/20 20:34 Ertapenem 1 gm/ Sodium Chloride 50 ml @ 100 mls/hr Q24H IV 10/10/20 17:00 11/16/20 23:59 10/12/20 17:22 Gabapentin (Neurontin) 300 mg BID ORAL 10/07/20 09:00 11/06/20 08:59 10/13/20 09:08 Heparin Sodium (Porcine) (Heparin 5000 units/ml) 5,000 units EVERY 12 HOURS SUBQ 10/07/20 09:00 11/21/20 08:59 10/10/20 21:31 Hydromorphone HCl (Dilaudid) 1 mg Q3H PRN IVP Severe Pain (Pain Scale 7-10) 10/11/20 21:00 10/18/20 20:59 10/13/20 09:18 Multivitamins (Multivitamins) 1 tab DAILY ORAL 10/09/20 09:00 11/08/20 08:59 10/13/20 09:08 Oxybutynin Chloride (Ditropan) 5 mg QHS ORAL 10/07/20 21:00 11/06/20 20:59 10/12/20 20:34 Tramadol HCl (Ultram) 50 mg QHS PRN ORAL Moderate Breakthru Pain (5-7) 10/07/20 03:30 10/14/20 03:29 10/07/20 09:20 Trazodone HCl (Desyrel) 50 mg HSPRN PRN ORAL Insomnia 10/08/20 14:00 11/07/20 13:59 10/09/20 22:43 Vancomycin HCl (Vanco pharmacy to dose) 1 ea DAILY PRN MISC Per rx protocol 10/10/20 16:45 11/09/20 16:44 Vancomycin HCl 1 gm/Dextrose 275 ml @ 183.708 mls/hr Q8HR@0400,1200,2000 IVPB 10/10/20 20:00 10/15/20 19:59 10/13/20 04:16 Zinc Sulfate (Zinc Sulfate) 220 mg DAILY ORAL 10/09/20 09:00 10/19/20 08:59 10/13/20 09:08 Allergies: Coded Allergies: No Known Allergies (Unverified , 06/07/12) Subjective now plan for 6 weeks of IV abx for PICCLINE placed left hip/ischial osteomyelitis on imaging Objective Last Vital Signs Date Time Temp Pulse Resp B/P (MAP) Pulse Ox O2 Delivery O2 Flow Rate FiO2 10/13/20 08:00 97.9 120 19 128/83 (98) 94 10/12/20 21:00 Room Air Laboratory Tests Test 10/13/20 05:00 White Blood Count 12.1 K/UL (4.8-10.8) H Red Blood Count 4.19 M/UL (4.70-6.10) L Hemoglobin 11.2 G/DL (14.2-18.0) L Hematocrit 34.9 % (42.0-52.0) L Mean Corpuscular Volume 83 FL (80-99) Mean Corpuscular Hemoglobin 26.8 PG (27.0-31.0) L Mean Corpuscular Hemoglobin Concent 32.2 G/DL (32.0-36.0) Red Cell Distribution Width 14.1 % (11.6-14.8) Platelet Count 579 K/UL (150-450) H Mean Platelet Volume 6.2 FL (6.5-10.1) L Neutrophils (%) (Auto) 52.0 % (45.0-75.0) Lymphocytes (%) (Auto) 37.0 % (20.0-45.0) Monocytes (%) (Auto) 6.5 % (1.0-10.0) Eosinophils (%) (Auto) 3.7 % (0.0-3.0) H Basophils (%) (Auto) 0.8 % (0.0-2.0) Erythrocyte Sedimentation Rate 81 MM/HR (0-15) H Sodium Level 138 MMOL/L (136-145) Potassium Level 4.0 MMOL/L (3.5-5.1) Chloride Level 105 MMOL/L (98-107) Carbon Dioxide Level 22 MMOL/L (21-32) Anion Gap 11 mmol/L (5-15) Blood Urea Nitrogen 11 mg/dL (7-18) Creatinine 0.8 MG/DL (0.55-1.30) Estimat Glomerular Filtration Rate > 60 mL/min (>60) Glucose Level 83 MG/DL (74-106) Calcium Level 9.5 MG/DL (8.5-10.1) Total Bilirubin 0.2 MG/DL (0.2-1.0) Aspartate Amino Transf (AST/SGOT) 16 U/L (15-37) Alanine Aminotransferase (ALT/SGPT) 43 U/L (12-78) Alkaline Phosphatase 81 U/L (46-116) Total Protein 7.9 G/DL (6.4-8.2) Albumin 2.6 G/DL (3.4-5.0) L Globulin 5.3 g/dL Albumin/Globulin Ratio 0.5 (1.0-2.7) L Intake and Output 10/12/20 10/13/20 19:00 07:00 Intake Total 480 ml 1000 ml Output Total 400 ml 600 ml Balance 80 ml 400 ml Intake Oral 480 ml 1000 ml Output Urine Total 400 ml 600 ml # Voids 3 1 Objective eneral appearance: alert, cooperative, no distress, appears stated age Head: Normocephalic, without obvious abnormality, atraumatic Eyes: conjunctivae/corneas clear. PERRL, EOM's intact. Fundi benign Throat: Lips, mucosa, and tongue normal. Teeth and gums normal Neck: supple, symmetrical, trachea midline, no adenopathy, thyroid: not enlarged, symmetric, no tenderness/mass/nodules, no carotid bruit and no JVD Lungs: clear to auscultation bilaterally Heart: regular rate and rhythm, S1, S2 normal, no murmur, click, rub or gallop Abdomen: soft, non-tender. Bowel sounds normal. No masses, no organomegaly Extremities: extremities normal, atraumatic, no cyanosis or edema Pulses: 2+ and symmetric Skin: + pressure ulcer with drainage Neurologic: Grossly normal Assessment/Plan Assessment/Plan #pressure ulcer/wound infection r/o osteo- #Sepsis #paraplegia #neurogenic bladder - piccline placed - ID eval - general surg eval - continue abx per ID- on vanco and ertapenem - pain control - resume home med - on oxybutynin time spent 35 min Harmony Khanna M.D. Oct 13, 2020 12:24
--- NOTE | 2020-10-13 15:09 | NUR ---
NURSE NOTES:WOUND CARE FOLLOW-UP NOTES:Pt presented on admission with Full Thickness Pressure Injury L Buttocks (L)5.2cm x (W)5cmx (D)4.4cm,undermining clockwise9-3o'clock by 1.3cm @110'clock.Base of wound is beefy red, Bone exposure at base of wound. Edges are macerated. Moderate amt non-odorous seropurulent exudate noted. NO evience of further skin breakdown periwound. Pt complained of tingling sensation down LLE and requested Surface support mattress be turned off. Pt is aware of risks vs benefits to having APM/CHIARA Mattress. Pt encouraged to frequently turn while in bed. Tx.Plan: Cleanse A Wound L Buttocks with Saline. Loosely pack with Silver Alginate(Maxsorb Ag). Apply Cavilon Skin Barrier periwound.Cover with Optifoam drsg. Change Daily and prn. Reposition at least every 2hours or as tolerated. Off-load heels with Pillow. APM/CHIARA Mattress.
[2020-10-13 16:00] VITALS: BP 133/81
[2020-10-13] MEDS ORDERED: INVANZ1 G1 IM (16:12)
[2020-10-13] MEDS ORDERED: DAPTOMYCIN350 MG IV (16:13)
--- NOTE | 2020-10-13 16:15 | NUR ---
NURSE NOTES: Reconciled home medications with Dr. Khanna. Ok to resume all home medications upon discharge.
--- NOTE | 2020-10-13 17:10 | NUR ---
NURSE NOTES: Discharge instructions and detailed wound care instructions provided, with home health name and contact information, verbalized understanding. Patient will call Dr. Paulson for follow up appointment. LEWIS PICC dressing remains CDI, flushed,patent, clamped, orange cap on ends, with white IV mesh netting over entire PICC dressing. Left buttocks dressing changed today with wound care nurse, remains CDI. Unable to take discharge wound (pressure ulcer) photo, due to cameras (x3) not working, Hilaria SIMMS aware. All belongings, discharge instructions given to patient. Patient sent down to lobby via his own WC, with RN, in stable condition. ID bracelet remover. Discharged home by family member at 1710.
--- NOTE | 2020-10-14 13:09 | NUR ---
INSURANCE FAXED TO GAURAV COLLIER T: [phone] F: [phone]
--- NOTE | 2020-10-15 14:49 | Discharge Summary ---
Discharge Summary Discharge Summary _ Date of admission: 10/06/2020 Date of discharge: 10/13/[address] Khanna History of Present Illness and Brief Hospital Course Mr. Hull is a 29-year-old male with history of paraplegia and pressure ulcer in the buttocks, who presented to the ED for evaluation of worsening pressure ulcer and drainage and tachycardia. Patient reported that he was referred to ED by his primary doctor. CT of abdomen and pelvis with contrast revealed left inferior gluteal decubitus ulcer with prominent fat stranding, small amount of lucency in the left ischial bone that was concerning for osteomyelitis, mild prominence of the bladder wall that was nonspecific, and nonspecific mildly prominent mesenteric and retroperitoneal lymph nodes which may be reactive. Patient received IV fluids, morphine, Zosyn, and vancomycin in the ER and was admitted to the hospital for further management. Given his reported history of COVID-19, he was evaluated by a newspaper stuffer. A repeat COVID-19 test via rapid gene assay was negative. He remained saturating well on room air throughout his admission. For his left buttock/gluteal wound infection/cellulitis, and left ischial/hip osteomyelitis, he was started on vancomycin and Zosyn. Wound culture was collected. Wound culture grew strep agalactiae CA group B and diphtherioids. Given his longstanding history of wound infection, it was determined that he would benefit the most with a PICC line placement and 6 weeks course of antibiotics. Appropriate wound care was instituted. He was provided with optimal nutrition. Given his improvement in his conditions, it was deemed appropriate to discharge him home with home health for continued antibiotics via PICC line. He was discharged home on 10/13/2020 with stable vitals. Consultants: Surgery Dr. Salguero Pulmonology Dr. Galvez Infectious disease Dr. Arroyo Discharge Condition Improved and stable Diet Regular Final diagnoses Cellulitis Osteomyelitis History of asthma History of paraplegia History of spinal cord injury History of back surgery Anemia Sepsis Neurogenic bladder Nephrolithiasis Rodriguez's cyst I have been assigned to dictate discharge summary for this account. Jacques Chadwick Oct 15, 2020 14:49
== END 2020-10-13 17:52 | disposition home health service (06) | DRG 871 ==
LOC: EMR 16:10 → 2E 16:26 → EDBEDREQ 10-07 00:56 → 4E 10-08 16:42
PROC: 02HV33Z Insertion of Infusion Device into Superior Vena Cava, Percutaneous Approach (ICD-10-PCS; principal; 2020-10-10)
DX: A41.9 Sepsis, unspecified organism (principal); L89.324 Pressure ulcer of left buttock, stage 4; G82.20 Paraplegia, unspecified; M86.8X8 Other osteomyelitis, other site; L03.317 Cellulitis of buttock; N31.9 Neuromuscular dysfunction of bladder, unspecified; J45.909 Unspecified asthma, uncomplicated; N20.0 Calculus of kidney; M71.20 Synovial cyst of popliteal space [Baker], unspecified knee; T14.8XXS Other injury of unspecified body region, sequela; X58.XXXS Exposure to other specified factors, sequela; R20.2 Paresthesia of skin
CPT/HCPCS: 36415; 36573; 71045; 74177; 76937; 80048; 80053; 80202; 81003; 82550; 82553; 83605; 83735; 84100; 84484; 85025; 85610; 85651; 85730; 86140; 87040; 87070; 87205; 93005; 93970; 96365; 96366; 96367; 96375; 96376; 99285; J2405; J7030; U0002

== ENCOUNTER 2020-10-27 10:24 | Outpatient (RCR) | payer BC ==
[~2020-10-27] VITALS: Ht 190.5 cm; Wt 65.8 kg
[~2020-10-27 10:24] MED LIST changes: +DAPTOMYCIN350 MG IV; +HYDROCODON-ACE1 EA15 ORAL; +INVANZ1 G1 IM
[2020-11-11] MEDS ORDERED: Lidocaine 1% 10mg/ml/Epi 0.005mg/ml 10ml INJ ONE (15:00)
== END 2020-11-23 | disposition home or self-care (01) ==
LOC: WCC 10:24
DX: L89.324 Pressure ulcer of left buttock, stage 4 (principal); E03.9 Hypothyroidism, unspecified; M86.08 Acute hematogenous osteomyelitis, other sites; M96.843 Postprocedural seroma of a musculoskeletal structure following other procedure; G89.28 Other chronic postprocedural pain; G82.20 Paraplegia, unspecified; Z79.899 Other long term (current) drug therapy
CPT/HCPCS: 11044; 11047